=== PATIENT | female | born 1970 | race Caucasian/White ===

== ENCOUNTER → 2020-03-23 08:13 | Outpatient (BNVA) | payer OTHER, SELFPAY | PROVIDERS: PCP Internal Medicine; Referring Provider Internal Medicine; Visit Provider Internal Medicine | DX: Z76.89 Persons encountering health services in other specified circumstances (principal) ==

== ENCOUNTER → 2020-05-18 09:56 | Outpatient (BNVA) | payer OTHER, SELFPAY | PROVIDERS: PCP Internal Medicine; Visit Provider Internal Medicine | DX: E10.65 Type 1 diabetes mellitus with hyperglycemia (principal); E78.5 Hyperlipidemia, unspecified; I10 Essential (primary) hypertension; E04.2 Nontoxic multinodular goiter | CPT/HCPCS: 82947; 99212 ==

== ENCOUNTER 2020-05-18 11:07 | Outpatient (REF) | payer OTHER, SELFPAY ==
[2020-05-18 14:35] LABS: Alanine Aminotransferase 25 U/L (0-31); Alkaline Phosphatase 49 U/L (39-117); Anion Gap 11 (12-20); Aspartate Amino Transferase 21 U/L (5-31); Bilirubin Total 0.5 mg/dL (0.0-1.0); Blood Urea Nitrogen 17 mg/dL (9-16); Carbon Dioxide 29 mmol/L (22-29); Chloride 102 mmol/L (96-108); Cholesterol 136 mg/dL; Estimated Glomerular Filt Rate > 60; Glucose Random 131 mg/dL (60-115); HDL Cholesterol 58 mg/dL; LDL Cholesterol Calculated 68 mg/dl; Potassium 4.7 mmol/L (3.3-5.1); Sodium 137 mmol/L (135-145); Total Protein 6.7 g/dL (6.5-8.0); Triglycerides 52 mg/dL
[2020-05-18 14:47] LABS: Vitamin D 25-OH Total 33.2 ng/mL (>30)
[2020-05-18 14:56] LABS: Creatinine Urine 92.34 mg/dL; Microalbumin Urine < 5.0 mg/L
[2020-05-19 09:07] LABS: LDL Cholesterol Direct 57 mg/dL (<100)
== END 2020-05-18 11:08 | disposition home or self-care (01) ==
LOC: HO.10HDL 11:07
PROVIDERS: Visit Provider Internal Medicine
DX: E10.65 Type 1 diabetes mellitus with hyperglycemia (principal); E55.9 Vitamin D deficiency, unspecified
CPT/HCPCS: 36415; 80053; 80061; 82043; 82306; 83721

== ENCOUNTER 2020-06-11 16:16 | Outpatient (REF) | payer OTHER, SELFPAY ==
--- NOTE | ~2020-06-11 | US_ITS ---
EXAMINATION: US THYROID CLINICAL INFORMATION: Nontoxic multinodular goiter. COMPARISON: Ultrasound soft tissue head/neck thyroid dated 12/25/2018. TECHNIQUE: Linear transducer grayscale and color Doppler examination with attention to the region of the thyroid. FINDINGS: SIZE: Measurements of the thyroid lobes and nodules are given in sagittal, anteroposterior and transverse dimensions respectively. Right Thyroid Lobe: 4.9 x 1.1 x 1.5 cm, volume 4.2 mL. Previously 5.0 x 1.4 x 1.5 cm, volume 5.6 mL. Parenchyma: The gland echotexture is homogeneous. Thyroid vascularity is normal. Left Thyroid Lobe: 4.8 x 1.0 x 1.6 cm, volume 4.0 mL. Previously 5.0 x 1.4 x 1.7 cm, volume 6.2 mL. Parenchyma: The gland echotexture is homogeneous. Thyroid vascularity is normal. Isthmus: 0.3 cm in maximum AP dimension. Previously 0.3 cm. Estimated total number of nodules greater than or equal to 1 cm: 0. Deboner nodules are described as follows: 1. Location: Right mid medial. Size: 0.4 x 0.3 x 0.4 cm, volume 0.03 mL. Previously: 0.5 x 0.4 x 0.3 cm, volume 0.03 mL. Nodule characteristics: Composition: Solid (2). Echogenicity: Isoechoic (1). Shape: Not taller than wide (0). Margins: Ill-defined (0). Echogenic Foci: None (0). ACR TI-RADS total points: 3 ACR TI-RADS category: 3 Significant change in size (>/= 20% in 2 dimensions and minimal increase of 2 mm or 50% or greater increase in volume): None Change in features: None Change in ACR TI-RADS risk category: None 2. Location: Left mid medial. Size: 0.4 x 0.4 x 0.5 cm, volume 0.04 mL. Previously: 0.5 x 0.4 x 0.4 cm, volume 0.04 mL. Nodule characteristics: Composition: Solid (2). Echogenicity: Isoechoic (1). Shape: Not taller than wide (0). Margins: Ill-defined (0). Echogenic Foci: None (0). ACR TI-RADS total points: 3 ACR TI-RADS category: 3 Significant change in size (>/= 20% in 2 dimensions and minimal increase of 2 mm or 50% or greater increase in volume): None Change in features: None Change in ACR TI-RADS risk category: None NODES: No lymphadenopathy is seen in the tissue surrounding the thyroid gland. US/US thyroid IMPRESSION: Two subcentimeter nonsuspicious thyroid nodules in midpole of each gland. ACR TI-RADS RECOMMENDATION REFERENCE: Ultrasound-guided fine-needle aspiration, followup ultrasound, no further follow up. * TR1 (0 point) and TR 2 (2 points): No FNA or follow up * TR3 (3 points): FNA if more than or equal to 2.5 cm in maximum dimension, followup ultrasound in 1, 3 and 5 years if 1.5 to 2.4 cm in maximum dimension. * TR4 (4-6 points): FNA if more than or equal to 1.5 cm in maximum dimension, followup ultrasound in 1, 2, 3 and 5 years if 1 to 1.4 cm in maximum dimension. * TR5 (more than or equal to 7 points): FNA if more than or equal to 1 cm in maximum dimension, followup ultrasound every year for 5 years if 0.5 to 0.9 cm in maximum dimension. * TR3, TR4 or TR5 nodules that are below the size threshold for follow up receive no follow up.
== END 2020-06-11 16:17 | disposition home or self-care (01) ==
LOC: HO.US 16:16
PROVIDERS: Visit Provider Internal Medicine
DX: E04.2 Nontoxic multinodular goiter (principal)
CPT/HCPCS: 76536

== ENCOUNTER 2020-08-14 09:17 | Outpatient (REF) | payer OTHER, SELFPAY ==
[2020-08-14 10:39] LABS: Estimated Average Glucose 157 mg/dL; Hemoglobin A1c % 7.1 %
[2020-08-14 10:44] LABS: Alanine Aminotransferase 13 U/L (0-31); Albumin Level 4.1 g/dL (3.5-5.0); Alkaline Phosphatase 58 U/L (39-117); Anion Gap 13 (12-20); Aspartate Amino Transferase 12 U/L (5-31); Bilirubin Total 0.4 mg/dL (0.0-1.0); Blood Urea Nitrogen 13 mg/dL (9-16); Calcium 9.2 mg/dL (8.4-10.2); Carbon Dioxide 28 mmol/L (22-29); Chloride 105 mmol/L (96-108); Estimated Glomerular Filt Rate > 60; Glucose Random 91 mg/dL (60-115); Potassium 4.7 mmol/L (3.3-5.1); Sodium 141 mmol/L (135-145)
[2020-08-14 11:03] LABS: Creatinine Urine 145.27 mg/dL
== END 2020-08-14 09:18 | disposition home or self-care (01) ==
LOC: HO.WFDLDS 09:17
PROVIDERS: Visit Provider Internal Medicine
DX: E10.65 Type 1 diabetes mellitus with hyperglycemia (principal)
CPT/HCPCS: 36415; 80053; 83036

== ENCOUNTER → 2020-08-17 07:58 | Outpatient (BNVA) | payer OTHER, SELFPAY | PROVIDERS: PCP Internal Medicine; Visit Provider Internal Medicine ==

== ENCOUNTER 2021-08-03 10:30 | Outpatient (REF) | payer OTHER, SELFPAY ==
[2021-08-03 13:48] LABS: Estimated Average Glucose 157 mg/dL; Hemoglobin A1c % 7.1 %
[2021-08-03 14:14] LABS: Alanine Aminotransferase 12 U/L (0-31); Albumin Level 3.9 g/dL (3.5-5.0); Alkaline Phosphatase 59 U/L (39-117); Anion Gap 11 (12-20); Aspartate Amino Transferase 13 U/L (5-31); Bilirubin Total 0.6 mg/dL (0.0-1.0); Blood Urea Nitrogen 12 mg/dL (9-16); Calcium 8.8 mg/dL (8.4-10.2); Carbon Dioxide 28 mmol/L (22-29); Chloride 107 mmol/L (96-108); Estimated Glomerular Filt Rate > 60; Glucose Random 128 mg/dL (60-115); Potassium 4.5 mmol/L (3.3-5.1); Sodium 141 mmol/L (135-145); Total Protein 6.6 g/dL (6.5-8.0)
[2021-08-03 14:24] LABS: Free T4 (Free Thyroxine) 0.93 ng/dL (0.71-1.85); Thyroid Stimulating Hormone 0.94 uIU/mL (0.32-4.0)
== END 2021-08-03 10:31 | disposition home or self-care (01) ==
LOC: HO.WFDLDS 10:30
PROVIDERS: Visit Provider Internal Medicine
DX: E10.65 Type 1 diabetes mellitus with hyperglycemia (principal); E04.2 Nontoxic multinodular goiter
CPT/HCPCS: 36415; 80053; 83036; 84439; 84443

== ENCOUNTER → 2021-08-05 08:34 | Outpatient (BNVA) | payer OTHER, SELFPAY | PROVIDERS: PCP Internal Medicine; Visit Provider Internal Medicine | DX: Z13.89 Encounter for screening for other disorder (principal) ==

== ENCOUNTER → 2021-08-24 10:54 | Outpatient (BNVA) | payer OTHER, SELFPAY | PROVIDERS: PCP Internal Medicine; Visit Provider Registered Nurse Diabetes Educator | DX: E10.65 Type 1 diabetes mellitus with hyperglycemia (principal); Z79.4 Long term (current) use of insulin; Z46.81 Encounter for fitting and adjustment of insulin pump | CPT/HCPCS: 99211 ==

== ENCOUNTER → 2021-09-28 08:00 | Outpatient (BNVA) | payer OTHER, SELFPAY | PROVIDERS: PCP Internal Medicine; Visit Provider Registered Nurse Diabetes Educator | DX: Z46.81 Encounter for fitting and adjustment of insulin pump (principal); E10.65 Type 1 diabetes mellitus with hyperglycemia | CPT/HCPCS: 99211 ==

== ENCOUNTER 2021-11-02 11:00 | Outpatient (REF) | payer OTHER, SELFPAY ==
[2021-11-02 15:44] LABS: Estimated Average Glucose 151 mg/dL; Hemoglobin A1C 172.8282 umol/L; Hemoglobin A1c % 6.9 %
[2021-11-02 15:58] LABS: Creatinine Urine 89.85 mg/dL; Microalbumin Urine < 5.0 mg/L
[2021-11-02 16:03] LABS: Alanine Aminotransferase 12 U/L (0-31); Albumin Level 3.9 g/dL (3.5-5.0); Alkaline Phosphatase 54 U/L (39-117); Anion Gap 11 (12-20); Aspartate Amino Transferase 12 U/L (5-31); Bilirubin Total 0.6 mg/dL (0.0-1.0); Blood Urea Nitrogen 14 mg/dL (9-16); Calcium 8.8 mg/dL (8.4-10.2); Carbon Dioxide 25 mmol/L (22-29); Chloride 108 mmol/L (96-108); Cholesterol 124 mg/dL; Estimated Glomerular Filt Rate > 60; Glucose Random 87 mg/dL (60-115); HDL Cholesterol 52 mg/dL; LDL Cholesterol Calculated 64 mg/dl; Potassium 4.5 mmol/L (3.3-5.1); Sodium 139 mmol/L (135-145); Total Protein 6.4 g/dL (6.5-8.0); Triglycerides 44 mg/dL
[2021-11-02 16:12] LABS: Thyroid Stimulating Hormone 1.22 uIU/mL (0.32-4.0); Vitamin D 25-OH Total 29.4 ng/mL (>30)
[2021-11-04 00:11] LABS: LDL Cholesterol Direct 59 mg/dL (<100)
== END 2021-11-02 11:01 | disposition home or self-care (01) ==
LOC: HO.WFDLDS 11:00
PROVIDERS: Visit Provider Internal Medicine
DX: E10.65 Type 1 diabetes mellitus with hyperglycemia (principal); E04.2 Nontoxic multinodular goiter; E55.9 Vitamin D deficiency, unspecified
CPT/HCPCS: 36415; 80053; 80061; 82043; 82306; 83036; 83721; 84439; 84443

== ENCOUNTER → 2021-11-04 14:49 | Outpatient (BNVA) | payer OTHER, SELFPAY | PROVIDERS: PCP Internal Medicine; Visit Provider Internal Medicine | DX: E10.65 Type 1 diabetes mellitus with hyperglycemia (principal); E78.5 Hyperlipidemia, unspecified; I10 Essential (primary) hypertension; E04.2 Nontoxic multinodular goiter | CPT/HCPCS: 82947; 99212 ==

== ENCOUNTER → 2021-11-30 09:57 | Outpatient (BNVA) | payer OTHER, SELFPAY | PROVIDERS: PCP Internal Medicine; Visit Provider Registered Nurse Diabetes Educator | DX: E10.65 Type 1 diabetes mellitus with hyperglycemia (principal); Z46.81 Encounter for fitting and adjustment of insulin pump; Z79.4 Long term (current) use of insulin | CPT/HCPCS: 99211 ==

== ENCOUNTER 2021-12-01 09:02 | Outpatient (REF) | payer OTHER, SELFPAY ==
--- NOTE | ~2021-12-01 | US_ITS ---
EXAMINATION: US THYROID CLINICAL INFORMATION: Nontoxic multinodular goiter. COMPARISON: Ultrasound soft tissue head/neck thyroid dated 06/11/2020 and 12/25/2018. TECHNIQUE: Linear transducer grayscale and color Doppler examination with attention to the region of the thyroid. FINDINGS: SIZE: Measurements of the thyroid lobes and nodules are given in sagittal, anteroposterior and transverse dimensions respectively. Right Thyroid Lobe: 4.7 x 1.3 x 1.5 cm, volume 4.8 mL. Previously 4.9 x 1.1 x 1.5 cm, volume 4.2 mL. Parenchyma: The gland echotexture is homogeneous. Thyroid vascularity is normal. Left Thyroid Lobe: 5.0 x 1.5 x 1.7 cm, volume 6.7 mL. Previously 4.8 x 1.0 x 1.6 cm, volume 4.0 mL. Parenchyma: The gland echotexture is homogeneous. Thyroid vascularity is normal. Isthmus: 0.2 cm in maximum AP dimension. Previously 0.3 cm. Estimated total number of nodules greater than or equal to 1 cm: 0. 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 Location: Right mid medial. Size: 0.5 x 0.3 x 0.4 cm, volume 0.03 mL. Previously: 0.4 x 0.3 x 0.4 cm, volume 0.03 mL. Nodule characteristics: Composition: Solid (2). Echogenicity: Isoechoic (1). Shape: Not taller than wide (0). Margins: Smooth (0). Echogenic Foci: None (0). ACR TI-RADS total points: 3 Previous: 3 ACR TI-RADS category: 3 Previous: 3 Significant change in size (>/= 20% in 2 dimensions and minimal increase of 2 mm or 50% or greater increase in volume): None Change in features: None Change in ACR TI-RADS risk category: None NODES: No lymphadenopathy is seen in the tissue surrounding the thyroid gland. US/US thyroid IMPRESSION: Stable size and echotexture of thyroid gland compared to previous study. Solitary nodule right midpole stable as well. No new nodule seen. ACR TI-RADS RECOMMENDATION REFERENCE: Ultrasound-guided fine-needle aspiration, followup ultrasound, no further follow up. * TR1 (0 point) and TR 2 (2 points): No FNA or follow up * TR3 (3 points): FNA if more than or equal to 2.5 cm in maximum dimension, followup ultrasound in 1, 3 and 5 years if 1.5 to 2.4 cm in maximum dimension. * TR4 (4-6 points): FNA if more than or equal to 1.5 cm in maximum dimension, followup ultrasound in 1, 2, 3 and 5 years if 1 to 1.4 cm in maximum dimension. * TR5 (more than or equal to 7 points): FNA if more than or equal to 1 cm in maximum dimension, followup ultrasound every year for 5 years if 0.5 to 0.9 cm in maximum dimension. * TR3, TR4 or TR5 nodules that are below the size threshold for follow up receive no follow up.
== END 2021-12-01 09:03 | disposition home or self-care (01) ==
LOC: HO.US 09:02
PROVIDERS: Visit Provider Internal Medicine
DX: E04.2 Nontoxic multinodular goiter (principal)
CPT/HCPCS: 76536

== ENCOUNTER → 2021-12-31 09:54 | Outpatient (BNVA) | payer OTHER, SELFPAY | PROVIDERS: PCP Internal Medicine; Visit Provider Registered Nurse Diabetes Educator | DX: E10.65 Type 1 diabetes mellitus with hyperglycemia (principal); Z96.41 Presence of insulin pump (external) (internal) | CPT/HCPCS: 99211 ==

== ENCOUNTER 2022-02-25 09:22 | Outpatient (REF) | payer OTHER, SELFPAY ==
[2022-02-25 11:23] LABS: Estimated Average Glucose 126 mg/dL
[2022-02-25 11:39] LABS: Alanine Aminotransferase 8 U/L (0-31); Albumin Level 3.9 g/dL (3.5-5.0); Alkaline Phosphatase 55 U/L (39-117); Anion Gap 12 (12-20); Aspartate Amino Transferase 11 U/L (5-31); Bilirubin Total 0.5 mg/dL (0.0-1.0); Blood Urea Nitrogen 15 mg/dL (9-16); Carbon Dioxide 28 mmol/L (22-29); Chloride 104 mmol/L (96-108); Estimated Glomerular Filt Rate > 60; Free T4 (Free Thyroxine) 0.88 ng/dL (0.71-1.85); Glucose Random 114 mg/dL (60-115); Potassium 4.5 mmol/L (3.3-5.1); Sodium 139 mmol/L (135-145); Thyroid Stimulating Hormone 1.25 uIU/mL (0.32-4.0); Total Protein 6.4 g/dL (6.5-8.0); Vitamin D 25-OH Total 30.2 ng/mL (>30)
== END 2022-02-25 09:23 | disposition home or self-care (01) ==
LOC: HO.10HDL 09:22
PROVIDERS: Visit Provider Internal Medicine
DX: E10.65 Type 1 diabetes mellitus with hyperglycemia (principal); E04.2 Nontoxic multinodular goiter; E55.9 Vitamin D deficiency, unspecified
CPT/HCPCS: 36415; 80053; 82306; 83036; 84439; 84443; 99211

== ENCOUNTER → 2022-05-09 09:34 | Outpatient (BNVA) | payer OTHER, SELFPAY | PROVIDERS: PCP Internal Medicine; Visit Provider Internal Medicine | DX: E10.65 Type 1 diabetes mellitus with hyperglycemia (principal); E78.5 Hyperlipidemia, unspecified; E04.2 Nontoxic multinodular goiter; I10 Essential (primary) hypertension | CPT/HCPCS: 82947; 99212 ==

== ENCOUNTER 2022-08-08 10:22 | Outpatient (REF) | payer OTHER, SELFPAY ==
[2022-08-08 14:33] LABS: Alanine Aminotransferase 12 U/L (0-31); Albumin Level 3.9 g/dL (3.5-5.0); Alkaline Phosphatase 68 U/L (39-117); Anion Gap 13 (12-20); Aspartate Amino Transferase 12 U/L (5-31); Bilirubin Total 0.4 mg/dL (0.0-1.0); Blood Urea Nitrogen 17 mg/dL (9-16); Calcium 9.2 mg/dL (8.4-10.2); Carbon Dioxide 27 mmol/L (22-29); Chloride 106 mmol/L (96-108); Estimated Glomerular Filt Rate > 60; Glucose Random 142 mg/dL (60-115); Potassium 4.6 mmol/L (3.3-5.1); Sodium 141 mmol/L (135-145); Total Protein 6.6 g/dL (6.5-8.0)
[2022-08-08 14:38] LABS: Estimated Average Glucose 143 mg/dL; Hemoglobin A1c % 6.6 %
[2022-08-08 14:48] LABS: Free T4 (Free Thyroxine) 0.95 ng/dL (0.71-1.85); Thyroid Stimulating Hormone 1.07 uIU/mL (0.32-4.0); Vitamin D 25-OH Total 32.9 ng/mL (>30)
== END 2022-08-08 10:23 | disposition home or self-care (01) ==
LOC: HO.WFDLDS 10:22
PROVIDERS: Visit Provider Internal Medicine
DX: E55.9 Vitamin D deficiency, unspecified (principal); E04.2 Nontoxic multinodular goiter; E10.65 Type 1 diabetes mellitus with hyperglycemia
CPT/HCPCS: 36415; 80053; 82306; 83036; 84439; 84443

== ENCOUNTER → 2022-08-10 09:02 | Outpatient (BNVA) | payer OTHER, SELFPAY | PROVIDERS: PCP Internal Medicine; Visit Provider Internal Medicine | DX: E10.65 Type 1 diabetes mellitus with hyperglycemia (principal); E78.5 Hyperlipidemia, unspecified; E04.2 Nontoxic multinodular goiter; I10 Essential (primary) hypertension | CPT/HCPCS: 82947; 99212 ==

== ENCOUNTER → 2022-09-26 09:58 | Outpatient (BNVA) | payer OTHER, SELFPAY | PROVIDERS: PCP Internal Medicine; Visit Provider Registered Nurse Diabetes Educator | DX: Z46.81 Encounter for fitting and adjustment of insulin pump (principal); E10.65 Type 1 diabetes mellitus with hyperglycemia | CPT/HCPCS: 99211 ==

== ENCOUNTER 2022-12-08 13:23 | Outpatient (REF) | payer OTHER, SELFPAY ==
--- NOTE | ~2022-12-08 | US_ITS ---
EXAMINATION: US THYROID CLINICAL INFORMATION: Nontoxic multinodular goiter. COMPARISON: Ultrasound soft tissue head/neck thyroid dated 12/01/2021 and 06/11/2020. TECHNIQUE: Linear transducer grayscale and color Doppler examination with attention to the region of the thyroid. FINDINGS: SIZE: Measurements of the thyroid lobes and nodules are given in sagittal, anteroposterior and transverse dimensions respectively. Right Thyroid Lobe: 4.6 x 1.3 x 1.4 cm, volume 4.2 mL. Previously 4.7 x 1.3 x 1.5 cm, volume 4.8 mL. Parenchyma: The gland echotexture is homogeneous. Thyroid vascularity is normal. Left Thyroid Lobe: 4.2 x 1.2 x 1.5 cm, volume 4.0 mL. Previously 5.0 x 1.5 x 1.7 cm, volume 6.7 mL. Parenchyma: The gland echotexture is homogeneous. Thyroid vascularity is normal. Isthmus: 0.2 cm in maximum AP dimension. Previously 0.2 cm. Estimated total number of nodules greater than or equal to 1 cm: 0. 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 Location: Right mid. Size: 0.5 x 0.4 x 0.5 cm, volume 0.05 mL. Previously: 0.5 x 0.3 x 0.4 cm, volume 0.03 mL. Nodule characteristics: Composition: Solid (2). Echogenicity: Hypoechoic (2). Shape: Not taller than wide (0). Margins: Smooth (0). Echogenic Foci: None (0). ACR TI-RADS total points: 4 Previous: 3 ACR TI-RADS category: 4 Previous: 3 Significant change in size (>/= 20% in 2 dimensions and minimal increase of 2 mm or 50% or greater increase in volume): Yes Change in features: No Change in ACR TI-RADS risk category: No NODES: No lymphadenopathy is seen in the tissue surrounding the thyroid gland. US/US thyroid IMPRESSION: A small right thyroid lobe nodule is seen, as detailed. No specific follow-up is recommended. ACR TI-RADS RECOMMENDATION REFERENCE: Ultrasound-guided fine-needle aspiration, follow up ultrasound, no further followup. * TR1 (0 point) and TR2 (2 points): No FNA or followup * TR3 (3 points): FNA if more than or equal to 2.5 cm in maximum dimension, follow up ultrasound in 1, 3 and 5 years if 1.5 to 2.4 cm in maximum dimension. * TR4 (4-6 points): FNA if more than or equal to 1.5 cm in maximum dimension, follow up ultrasound in 1, 2, 3 and 5 years if 1 to 1.4 cm in maximum dimension. * TR5 (more than or equal to 7 points): FNA if more than or equal to 1 cm in maximum dimension, follow up ultrasound every year for 5 years if 0.5 to 0.9 cm in maximum dimension. * TR3, TR4 or TR5 nodules that are below the size threshold for follow up receive no followup.
[2022-12-08 14:39] LABS: Estimated Average Glucose 140 mg/dL; Hemoglobin A1c % 6.5 % (<6.0)
[2022-12-08 14:59] LABS: Alanine Aminotransferase 9 U/L (0-31); Alkaline Phosphatase 67 U/L (39-117); Anion Gap 10 (12-20); Aspartate Amino Transferase 12 U/L (5-31); Bilirubin Total 0.4 mg/dL (0.0-1.0); Blood Urea Nitrogen 15 mg/dL (9-16); Calcium 9.2 mg/dL (8.4-10.2); Carbon Dioxide 25 mmol/L (22-29); Chloride 107 mmol/L (96-108); Cholesterol 146 mg/dL (<200); Estimated Glomerular Filt Rate > 60; Glucose Random 147 mg/dL (60-115); HDL Cholesterol 47 mg/dL (>40); LDL Cholesterol Calculated 81 mg/dL (<100); Potassium 4.1 mmol/L (3.3-5.1); Sodium 138 mmol/L (135-145); Total Protein 6.9 g/dL (6.5-8.0); Triglycerides 93 mg/dL (<150)
[2022-12-08 15:09] LABS: Free T4 (Free Thyroxine) 0.89 ng/dL (0.71-1.85); Vitamin D 25-OH Total 29.3 ng/mL (>30)
[2022-12-08 15:55] LABS: Microalbum/Creatinine Ratio Ur 4.1 ug/mg cr (<30)
[2022-12-10 01:58] LABS: LDL Cholesterol Direct 86 mg/dL (<100)
== END 2022-12-08 13:24 | disposition home or self-care (01) ==
LOC: HO.US 13:23
PROVIDERS: PCP Internal Medicine; Visit Provider Internal Medicine
DX: E04.2 Nontoxic multinodular goiter (principal); E10.65 Type 1 diabetes mellitus with hyperglycemia; E55.9 Vitamin D deficiency, unspecified
CPT/HCPCS: 36415; 76536; 80053; 80061; 82043; 82306; 82570; 83036; 83721; 84439; 84443

== ENCOUNTER 2022-12-13 09:49 | Outpatient (AMB) | payer OTHER, SELFPAY ==
--- NOTE | 2022-12-13 10:21 | A.OFFVIS_ITS ---
Intake Intake Visit Reasons: DM/with pump/confirm 12/08 Allergies No Known Allergies Allergy (Verified 08/10/22 09:11) HPI Comprehensive Diabetes Asmnt Most Recent Diabetes Results: Microalb/Creat Ratio 4.1 ug/mg cr (<30) 12/08/22 Cholesterol 146 mg/dL (<200) 12/08/22 HDL Cholesterol 47 mg/dL (>40) 12/08/22 Triglycerides 93 mg/dL (<150) 12/08/22 Creatinine 0.86 mg/dL (0.5-1.4) 12/08/22 Blood Urea Nitrogen 15 mg/dL (9-16) 12/08/22 Sodium 138 mmol/L (135-145) 12/08/22 Potassium 4.1 mmol/L (3.3-5.1) 12/08/22 Chloride 107 mmol/L (96-108) 12/08/22 Carbon Dioxide 25 mmol/L (22-29) 12/08/22 Calcium 9.2 mg/dL (8.4-10.2) 12/08/22 AST 12 U/L (5-31) 12/08/22 ALT 9 U/L (0-31) 12/08/22 Total Protein 6.9 g/dL (6.5-8.0) 12/08/22 Albumin 4.0 g/dL (3.5-5.0) 12/08/22 [facility] Medical History HLD (hyperlipidemia) HTN (hypertension) Multinodular thyroid T1DM (type 1 diabetes mellitus) Vitamin D deficiency Surgical History History of ear surgery Hx of colonoscopy Hx of prior ablation treatment Family History Father Diabetes Mother Colonic polyp Social History Household Members: Family and Children Patient Tobacco Use Status: Former Tobacco user Quit Date: quit 20 years ago Cigarette Packs Per Day: 1 Years Smoked: 10 Assessment & Plan Assessment & Plan (1) T1DM (type 1 diabetes mellitus): Code(s): E10.9 - Type 1 diabetes mellitus without complications Qualifiers: Diabetes mellitus complication status: with hyperglycemia Qualified Code(s): E10.65 - Type 1 diabetes mellitus with hyperglycemia Plan: Patient presents for pump training for? T slim with control? IQ and Dexcom G6 ?patient's last A1c? 6.5 on 12/08/2022 ?following topics were reviewed today: -? activity setting - insulin on board Sensor setting (if applicable) ??? High Alert: off mg/dl ??? Low Alert: 70 mg/dl ?? average glucose for the past 2 weeks 157 mg/dL ?patient above target 28% ?at target? 74% ?below target 0% Patient reports she accurate and consistent on carbohydrate counting Patient is receiving small micro boluses post meal, will increase insulin to carb ratio from 10:00am- 10 pm Patient given the opportunity to ask questions about pump function Patient understands the basic concepts of pump therapy, how to give insulin for meals and snacks, how to troubleshoot for hyper and hypoglycemia. Setting verified by [facility] Basal rate(s) (units/hour) : 12 AM? to 2 AM? 1.5 units / hr 5 AM to 8 AM? 1.4 units / hr 8 AM? to 12 PM ? 1.5 units / hr 12 PM? to 10 PM ? 1.8 units / hr 10 PM? to 12 AM? 1.6 units / hr Bolus setting Insulin Carbohydrate Ratio (s) 12 AM to 10 AM 1:6 New 10 AM to 10 PM 1:5.5 10 PM to 12 AM 1:6 Correction Factor / Sensitivity Factor 12 AM? to 12 AM? 1:50 Active Insulin Time:? 5 hours Target(s): 12 AM? to 12 AM? 110 mg/dL Coding Level of Care Code Est Pt Level 1 (94835) Diagnoses T1DM (type 1 diabetes mellitus) E10.65 Diabetes mellitus complication status: with hyperglycemia
== END 2022-12-13 10:24 | disposition home or self-care (01) ==
PROVIDERS: PCP Internal Medicine; Visit Provider Registered Nurse Diabetes Educator
DX: E10.65 Type 1 diabetes mellitus with hyperglycemia (principal)

== ENCOUNTER → 2022-12-13 09:49 | Outpatient (BNVA) | payer OTHER, SELFPAY | PROVIDERS: PCP Internal Medicine; Visit Provider Registered Nurse Diabetes Educator | DX: E10.65 Type 1 diabetes mellitus with hyperglycemia (principal); Z96.41 Presence of insulin pump (external) (internal) | CPT/HCPCS: 99211 ==

== ENCOUNTER 2023-03-27 10:16 | Outpatient (AMB) | payer OTHER, SELFPAY ==
[2023-03-27 10:17] VITALS: BP 116/68; PULSE 80; BMI 34.2
--- NOTE | 2023-03-27 10:17 | A.OFFVIS_ITS ---
Intake Vital Signs 03/27/23 10:17 Height 5 ft 5 in Weight 205 lb 7.533 oz BMI 34.2 BP 116/68 Blood Pressure Location Lt brachial Position Sitting Pulse 80 Pulse Source Pulse Oximeter Intake Visit Reasons: F/U [id number] Intake Note: Patient present today to follow up on Type 1 Diabetes Mellitus. Patient receives DME supplies through: [facility] Diabetic Eye exam: 01/2023 Last Podiatry Visit: None Random Glucose: 143mg/dl HgA1C: 6.9% Hooker Operator Required: No Accompanied by: Self / Same As Patient Allergies No Known Allergies Allergy (Verified 03/27/23 10:25) Medication List - Last Reconciled 03/27/23 by Deng Nath MD atorvastatin 40 mg PO BEDTIME blood sugar diagnostic (FreeStyle Lite Strips) 4x daily blood-glucose meter (FreeStyle [place] Lite kit) As directed cholecalciferol (vitamin D3) 25 mcg PO DAILY dicyclomine 10 mg PO TID gabapentin 300 mg PO BEDTIME insulin lispro (Humalog U-100 Insulin) Via insulin pump 80-90 units subcut use as directed; 30 days lancets (FreeStyle Lancets) 4x daily lisinopril 2.5 mg PO DAILY multivitamin (One-A-Day Essential tablet) 1 tab PO DAILY pantoprazole 40 mg PO DAILY sertraline 50 mg PO DAILY zinc acetate 50 mg PO DAILY HPI HPI Comments History of Present Illness Details 52 YO F with PMHx T1DM, multinodular thyroid and HLD who is seen in F/U for T1DM. She was previously followed by [facility]. . Patient last saw Dr. Caceres on 08/10/2022 1. T1DM: Initially diagnosed with T1DM at the age of 13 when she was diagnosed at her elementary school. Currently using Tandem insulin pump. Current settings: Basal rate(s) (units/hour) : 12 AM? to 2 AM? 1.5 units / hr 5 AM to 8 AM? 1.4 units / hr 8 AM? to 12 PM ? 1.5 units / hr 12 PM? to 10 PM ? 1.8 units / hr 10 PM? to 12 AM? 1.6 units / hr Bolus setting Insulin Carbohydrate Ratio (s) 12 AM to 10 AM 1:6 New 10 AM to 10 PM 1:5.5 10 PM to 12 AM 1:6 Correction Factor / Sensitivity Factor 12 AM? to 12 AM? 1:50 Active Insulin Time:? 5 hours Target(s): 12 AM? to 12 AM? 110 mg/dL Duration of action of 3 hours. Total daily insulin dose of 71units/day, with 63% basal and 37% bolus. She changes her site every 3-4days. Also uses Dexcom G6 CGM. 14 days of data downloaded and interpreted from 03/14/2023 through . This reveals an average sugar of 172, with range 69-302. She is at goal 61% of the time, above goal 39% of the time, and below goal 0% of the time. CGM masses active 94.7% of the time with G mi of 7.4% She is mostly at goal, with some high sugars postprandially. Shedoes not have hypoglycemia awareness and does correct according to the rule of 15's. No hypoglycemia Most recent A1C: . Family history of autoimmunity in her son with albinism. Has eyes checked yearly, last eye exam 2 mos a go , no history of Retinopathy. Denies neuropathy, does not see podiatry. Denies any ulcerations. Denies nephropathy. On lisinopril 2.5 mg PO daily. UAC WNL 11/02/2021. HLD, on Atorvastatin 40 mg PO daily. LDL 59 11/02/2021. No known CAD. Has had Diabetes Education. No prior episodes of DKA. Denies episodes of severe hypoglycemia. 2. Multinodular Thyroid: Has a multinodular thyroid. Does complain of hair loss, dry skin, fatigue, weight gain. Denies any history of head or neck irradiation. Denies family history of thyroid cancer. US Thyroid: 12/01/2021 Right Thyroid Lobe: 4.7 x 1.3 x 1.5 cm, volume 4.8 mL. Previously 4.9 x 1.1 x 1.5 cm, volume 4.2 mL. Parenchyma: The gland echotexture is homogeneous. Thyroid vascularity is normal. Left Thyroid Lobe: 5.0 x 1.5 x 1.7 cm, volume 6.7 mL. Previously 4.8 x 1.0 x 1.6 cm, volume 4.0 mL. Parenchyma: The gland echotexture is homogeneous. Thyroid vascularity is normal. Isthmus: 0.2 cm in maximum AP dimension. Previously 0.3 cm. Estimated total number of nodules greater than or equal to 1 cm: 0. 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 Location: Right mid medial. ?? ? Size: 0.5 x 0.3 x 0.4 cm, volume 0.03 mL. ?? ? Previously: 0.4 x 0.3 x 0.4 cm, volume 0.03 mL. ?? ? Nodule characteristics: ?? ? Composition: Solid (2). ?? ? Echogenicity: Isoechoic (1). ?? ? Shape: Not taller than wide (0). ?? ? Margins: Smooth (0). ?? ? Echogenic Foci: None (0).? ACR TI-RADS total points: 3 Previous: 3 ?? ? ACR TI-RADS category: 3 Previous: 3 ? Significant change in size (>/= 20% in 2 dimensions and minimal increase of 2 mm or 50% or greater increase in volume): None ?? ? Change in features: None ?? ? Change in ACR TI-RADS risk category: None NODES: No lymphadenopathy is seen in the tissue surrounding the thyroid gland. Labs: Laboratory Tests 08/08/22 08/08/22 10:30 10:30 Sodium 141 Potassium 4.6 Creatinine 0.72 Estimated GFR > 60 Hemoglobin A1c % 6.6 25-OH Vitamin D To dick 32.9 TSH 1.07 Free T4 0.95 [facility] Medical History HLD (hyperlipidemia) HTN (hypertension) Multinodular thyroid T1DM (type 1 diabetes mellitus) Vitamin D deficiency Surgical History History of ear surgery Hx of colonoscopy Hx of prior ablation treatment Family History Father Diabetes Mother Colonic polyp Social History Household Members: Family and Children Patient Tobacco Use Status: Former Tobacco user Quit Date: quit 20 years ago Cigarette Packs Per Day: 1 Years Smoked: 10 Physical Exam Vital Signs: Last Vital Signs Pulse 80 03/27/23 10:17 BP 116/68 03/27/23 10:17 BMI result Body Mass Index 34.2 Absence of Cushingoid features. Absence of acromegalic features. Neck exam reveals nl size thyroid about 15 gms. No thyroid nodules palpable. No carotid bruits present. Lungs CTA. Heart S1 S2, Reg R/R. No M/R/ G. Skin exam reveals absence of vitiligo or acanthosis nigricans. Abdominal exam reveals Soft NT/ND with NA BS. No organomegaly present. Neck Other: . Extrem Other: Visual exam of foot performed. No ulcerations or open lesions. No onchomycosis, no callouses.Pulses 2 + distally Sensation intact to monofilament exam. Vibratory sensation sensed is intact with 128 Hz tuning fork Assessment & Plan Assessment & Plan (1) T1DM (type 1 diabetes mellitus): Code(s): E10.9 - Type 1 diabetes mellitus without complications Qualifiers: Diabetes mellitus complication status: with hyperglycemia Qualified Code(s): E10.65 - Type 1 diabetes mellitus with hyperglycemia Plan: This is a 52-year-old white female with history of type 1 diabetes being managed with a tandem T-slim X 2 pump with excellent glycemic control but not optimal at goal with no known microvascular or macrovascular complicate Plan is to tighten the insulin: Carbohydrate at 10:00 to 22:00 to 1:5. Will also renew glucagon rescue baquimi . Also made appointment to library clerk talking books. Patient should also follow up with can capper Orders: Referrals Podiatry Referral E10.9 - Type 1 diabetes mellitus without complications Medications: New glucagon 3 mg/actuation (Baqsimi) 3 mg intranasal ONCE 2 ea 4RF Coding Level of Care Code Est Pt Level 4 (60323) Diagnoses Type 1 diabetes mellitus with hyperglycemia E10.65 Diabetes mellitus complication status: with hyperglycemia
[2023-03-27 10:31] LABS: Glucose, Whole Blood 143 mg/dL (60-115)
== END 2023-03-27 11:00 | disposition home or self-care (01) ==
PROVIDERS: PCP Internal Medicine; Visit Provider Internal Medicine Endocrinology, Diabetes & Metabolism
DX: E10.65 Type 1 diabetes mellitus with hyperglycemia (principal)
CPT/HCPCS: 99214

== ENCOUNTER → 2023-03-27 10:16 | Outpatient (BNVA) | payer OTHER, SELFPAY | PROVIDERS: PCP Internal Medicine; Visit Provider Internal Medicine Endocrinology, Diabetes & Metabolism | DX: Z46.81 Encounter for fitting and adjustment of insulin pump (principal); E10.65 Type 1 diabetes mellitus with hyperglycemia; Z79.4 Long term (current) use of insulin | CPT/HCPCS: 82947; 99212 ==

== ENCOUNTER → 2023-03-30 07:43 | Outpatient (BNV) | payer OTHER, SELFPAY | PROVIDERS: PCP Internal Medicine; Visit Provider Internal Medicine Endocrinology, Diabetes & Metabolism | DX: E10.9 Type 1 diabetes mellitus without complications (principal) | CPT/HCPCS: 83036 ==

== ENCOUNTER 2023-09-07 09:21 | Outpatient (AMB) | payer OTHER, SELFPAY ==
--- NOTE | 2023-09-07 09:23 | MHC.OFFVIS ---
Vital Signs 09/07/23 09:26 Height 5 ft 5 in Weight 201 lb 4.513 oz BMI 33.5 BP 120/72 Blood Pressure Location Lt brachial Position Sitting Pulse 67 Pulse Source Pulse Oximeter Intake Visit Reasons: f/u Type 1 DM-confirmed Intake Note: Patient presents today to follow up on D1MT. 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 Required: No Accompanied by: Self / Same As Patient Allergies No Known Allergies Allergy (Verified 09/07/23 09:29) Medication List - Last Reconciled 09/07/23 by Deng Nath MD atorvastatin 40 mg PO BEDTIME blood sugar diagnostic (FreeStyle Lite Strips) 4x daily blood-glucose meter (FreeStyle [place] Lite kit) As directed cholecalciferol (vitamin D3) 25 mcg PO DAILY dicyclomine 10 mg PO TID gabapentin 300 mg PO BEDTIME glucagon 3 mg/actuation (Baqsimi) 3 mg intranasal ONCE insulin lispro (Humalog U-100 Insulin) Via insulin pump 80-90 units subcut use as directed; 30 days lancets (FreeStyle Lancets) 4x daily lisinopril 2.5 mg PO DAILY multivitamin (One-A-Day Essential tablet) 1 tab PO DAILY pantoprazole 40 mg PO DAILY sertraline 50 mg PO DAILY zinc acetate 50 mg PO DAILY HPI Comments Details: 52 YO F with PMHx T1DM, multinodular thyroid and HLD who is seen in F/U for T1DM. She was previously followed by [facility]. . Patient last saw Dr. Caceres on 08/10/2022 1. T1DM: Initially diagnosed with T1DM at the age of 13 when she was diagnosed at her elementary school. Currently using Tandem insulin pump. Current settings: Basal rate(s) (units/hour) : 12 AM? to 2 AM? 1.5 units / hr 5 AM to 8 AM? 1.4 units / hr 8 AM? to 12 PM ? 1.5 units / hr 12 PM? to 10 PM ? 1.8 units / hr 10 PM? to 12 AM? 1.6 units / hr Bolus setting Insulin Carbohydrate Ratio (s) 12 AM to 10 AM 1:6 10A to 12 P = 1:5 10 P-12 A =1:6 New 10 AM to 10 PM 1:5.5 10 PM to 12 AM 1:6 Correction Factor / Sensitivity Factor 12 AM? to 12 AM? 1:50 Active Insulin Time:? 5 hours Target(s): 12 AM? to 12 AM? 110 mg/dL Duration of action of 3 hours. Total daily insulin dose of 52.9 units/day, with 70% basal and 30% bolus. She changes her site every 3-4days. Also uses [employer] G6 CGM. 14 days of data downloaded and interpreted from 08/25/2023 through . This reveals an average sugar of 147, . She is at goal 78% of the time, above goal 22% of the time, and below goal 0% of the time. CGM masses active 91.9% of the time with G mi of 6.8% She is mostly at goal, with some high sugars postprandially. Shedoes not have hypoglycemia awareness and does correct according to the rule of 15's. No hypoglycemia Most recent A1C: . Family history of autoimmunity in her son with albinism. Has eyes checked yearly, last eye exam in 01/2023 , no history of Retinopathy. Denies neuropathy, does not see podiatry. Denies any ulcerations. Denies nephropathy. On lisinopril 2.5 mg PO daily. UAC WNL 11/02/2021. HLD, on Atorvastatin 40 mg PO daily. LDL 59 11/02/2021. No known CAD. Has had Diabetes Education. No prior episodes of DKA. Denies episodes of severe hypoglycemia. 2. Multinodular Thyroid: Has a multinodular thyroid. Does complain of hair loss, dry skin, fatigue, weight gain. Denies any history of head or neck irradiation. Denies family history of thyroid cancer. US Thyroid: 12/01/2021 Right Thyroid Lobe: 4.7 x 1.3 x 1.5 cm, volume 4.8 mL. Previously 4.9 x 1.1 x 1.5 cm, volume 4.2 mL. Parenchyma: The gland echotexture is homogeneous. Thyroid vascularity is normal. Left Thyroid Lobe: 5.0 x 1.5 x 1.7 cm, volume 6.7 mL. Previously 4.8 x 1.0 x 1.6 cm, volume 4.0 mL. Parenchyma: The gland echotexture is homogeneous. Thyroid vascularity is normal. Isthmus: 0.2 cm in maximum AP dimension. Previously 0.3 cm. Estimated total number of nodules greater than or equal to 1 cm: 0. Feed Crusher nodules are described as follows: 1.? Location: Right mid medial. ?? ? Size: 0.5 x 0.3 x 0.4 cm, volume 0.03 mL. ?? ? Previously: 0.4 x 0.3 x 0.4 cm, volume 0.03 mL. ?? ? Nodule characteristics: ?? ? Composition: Solid (2). ?? ? Echogenicity: Isoechoic (1). ?? ? Shape: Not taller than wide (0). ?? ? Margins: Smooth (0). ?? ? Echogenic Foci: None (0).? ACR TI-RADS total points: 3 Previous: 3 ?? ? ACR TI-RADS category: 3 Previous: 3 ? Significant change in size (>/= 20% in 2 dimensions and minimal increase of 2 mm or 50% or greater increase in volume): None ?? ? Change in features: None ?? ? Change in ACR TI-RADS risk category: None NODES: No lymphadenopathy is seen in the tissue surrounding the thyroid gland. Labs: Laboratory Tests 08/08/22 08/08/22 10:30 10:30 Sodium 141 Potassium 4.6 Creatinine 0.72 Estimated GFR > 60 Hemoglobin A1c % 6.6 25-OH Vitamin D Total 32.9 TSH 1.07 Free T4 0.95 She does have a painful infection around the nail bed after having her nail size by the emergency management consultant and taken antibiotic with resolution but now return of redness, pain PFSH Medical History HLD (hyperlipidemia) HTN (hypertension) Multinodular thyroid T1DM (type 1 diabetes mellitus) Vitamin D deficiency Surgical History Hx of prior ablation treatment Hx of colonoscopy History of ear surgery Family History Father Diabetes Mother Colonic polyp Social History Household Members: Family and Children Patient Tobacco Use Status: Former Tobacco user Quit Date: quit 20 years ago Cigarette Packs Per Day: 1 Years Smoked: 10 Physical Exam Vital Signs: Last Vital Signs Pulse 67 09/07/23 09:26 BP 120/72 09/07/23 09:26 BMI result Body Mass Index 33.5 Absence of Cushingoid features. Absence of acromegalic features. Neck exam reveals nl size thyroid about 15 gms. No thyroid nodules palpable. No carotid bruits present. Lungs CTA. Heart S1 S2, Reg R/R. No M/R/ G. Skin exam reveals absence of vitiligo or acanthosis nigricans. Abdominal exam reveals Soft NT/ND with NA BS. No organomegaly present. Neck Other: . Extrem Other: Visual exam of foot performed. No ulcerations or open lesions. There is some redness around the right 1st toe nailbed without any skin breakdown or obvious signs of infection No onchomycosis, no callouses.Pulses 2 + distally Sensation intact to monofilament exam. Vibratory sensation sensed is intact with 128 Hz tuning fork Results AMB Hemoglobin A1c AMB Hemoglobin A1c 6.5 % Last Edit by LIBAN Avendano on 09/07/23 09:43 Results Reviewed Results Reviewed: Laboratory Last Values Glucose (Clinic) 132 mg/dL (60-115) H 09/07/23 09:31 Assessment & Plan Assessment & Plan (1) T1DM (type 1 diabetes mellitus): Code(s): E10.9 - Type 1 diabetes mellitus without complications Category: Medical Qualifiers: Diabetes mellitus complication status: with hyperglycemia Qualified Code(s): E10.65 - Type 1 diabetes mellitus with hyperglycemia Plan: This is a 52-year-old white female with history of type 1 diabetes being managed with a tandem T-slim X 2 pump with excellent glycemic control with no known microvascular or macrovascular complicate Plan is to continue the current management. She is going to follow-up with the emergency management consultant regarding the right toe infection Orders: Orders AMB Hemoglobin A1c Today E10.65 - Type 1 diabetes mellitus with hyperglycemia, Z13.9 - Encounter for screening, unspecified Coding Level of Care Code Est Pt Level 4 (31299) Diagnoses Type 1 diabetes mellitus with hyperglycemia E10.65 Diabetes mellitus complication status: with hyperglycemia
[2023-09-07 09:26] VITALS: BP 120/72; PULSE 67; BMI 33.5
[2023-09-07 09:36] LABS: Glucose, Whole Blood 132 mg/dL (60-115)
== END 2023-09-07 09:53 | disposition home or self-care (01) ==
PROVIDERS: PCP Internal Medicine; Visit Provider Internal Medicine Endocrinology, Diabetes & Metabolism
DX: Z13.9 Encounter for screening, unspecified (principal); E10.65 Type 1 diabetes mellitus with hyperglycemia
CPT/HCPCS: 99214

== ENCOUNTER → 2023-09-07 09:21 | Outpatient (BNVA) | payer OTHER, SELFPAY | PROVIDERS: PCP Internal Medicine; Visit Provider Internal Medicine Endocrinology, Diabetes & Metabolism | DX: Z46.81 Encounter for fitting and adjustment of insulin pump (principal); E10.65 Type 1 diabetes mellitus with hyperglycemia; Z79.2 Long term (current) use of antibiotics | CPT/HCPCS: 82947; 83036; 99212 ==

== ENCOUNTER → 2023-12-07 10:37 | Outpatient (BNVA) | payer OTHER, SELFPAY | PROVIDERS: PCP Internal Medicine; Visit Provider Registered Nurse Diabetes Educator | DX: Z46.81 Encounter for fitting and adjustment of insulin pump (principal); E10.65 Type 1 diabetes mellitus with hyperglycemia; Z79.4 Long term (current) use of insulin | CPT/HCPCS: 82947; 83036; 99212 ==

== ENCOUNTER 2023-12-07 10:43 | Outpatient (AMB) | payer OTHER, SELFPAY ==
--- NOTE | 2023-12-07 10:50 | A.OFFVIS_ITS ---
Vital Signs 12/07/23 10:51 Height 5 ft 5 in Weight 200 lb 9.93 oz BMI 33.4 BP 122/78 Blood Pressure Location Rt brachial Position Sitting Pulse 90 Pulse Source Pulse Oximeter Intake Visit Reasons: T1DM Intake Note: Patient presents today to re-establish treatment for Type 1 Diabetes Mellitus: Last Diabetic eye exam was on: 01/2023 Last Podiatry exam was on: Does not see a Grocery Specialist Most recent HbA1c: 7.4%, 12/07/2023 Random Glucose- 74 mg/dL, Today Export Coordinator Required: No Accompanied by: Self / Same As Patient Allergies No Known Allergies Allergy (Verified 09/07/23 09:29) HPI Comments Details: 52 YO F with PMHx T1DM, multinodular thyroid and HLD who is seen in F/U for T1DM. She was previously followed by [facility]. . Patient last saw Dr. Nath in August 2023 her most recent A1c was 7.4% on 12/07/2023. This is up from 6.5% 08/28/2023. She reports that she has been eating more and not as consistent entering carbs. 1. T1DM: Initially diagnosed with T1DM at the age of 13 when she was diagnosed at her elementary school. Currently using Tandem insulin pump. Current settings: Basal rate(s) (units/hour) : 12 AM? to 2 AM? 1.5 units / hr 5 AM to 8 AM? 1.4 units / hr 8 AM? to 12 PM ? 1.5 units / hr 12 PM? to 10 PM ? 1.8 units / hr 10 PM? to 12 AM? 1.6 units / hr Bolus setting Insulin Carbohydrate Ratio (s) 12 AM to 10 AM 1:6 10A to 12 P = 1:5 10 P-12 A =1:6 New 10 AM to 10 PM 1:5.5 10 PM to 12 AM 1:6 Correction Factor / Sensitivity Factor 12 AM? to 12 AM? 1:50 Active Insulin Time:? 5 hours Target(s): 12 AM? to 2 AM? 110 mg/dL 2AM to 8AM 120 mg/dL new 08:00 to 00:00 110 Duration of action of 3 hours. She is mostly at goal, with some high sugars postprandially. She does not have hypoglycemia awareness and does correct according to the rule of 15's. Some hypoglycemia 4-6 a.m. Family history of autoimmunity in her son with albinism. Has eyes checked yearly, last eye exam in 01/2023, no history of Retinopathy. Denies neuropathy, she was recenty seen by podiatry and infection near nail bed has resolved. Denies any ulcerations. Denies nephropathy. On lisinopril 2.5 mg PO daily. UAC WNL 11/02/2021. HLD, on Atorvastatin 40 mg PO daily. LDL 59 11/02/2021. No known CAD. Has had Diabetes Education. No prior episodes of DKA. Denies episodes of severe hypoglycemia. 2. Multinodular Thyroid: Has a multinodular thyroid. Does complain of hair loss, dry skin, fatigue, weight gain. Denies any history of head or neck irradiation. Denies family history of thyroid cancer. US Thyroid: 12/01/2021 Right Thyroid Lobe: 4.7 x 1.3 x 1.5 cm, volume 4.8 mL. Previously 4.9 x 1.1 x 1.5 cm, volume 4.2 mL. Parenchyma: The gland echotexture is homogeneous. Thyroid vascularity is normal. Left Thyroid Lobe: 5.0 x 1.5 x 1.7 cm, volume 6.7 mL. Previously 4.8 x 1.0 x 1.6 cm, volume 4.0 mL. Parenchyma: The gland echotexture is homogeneous. Thyroid vascularity is normal. Isthmus: 0.2 cm in maximum AP dimension. Previously 0.3 cm. Estimated total number of nodules greater than or equal to 1 cm: 0. 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 Location: Right mid medial. ?? ? Size: 0.5 x 0.3 x 0.4 cm, volume 0.03 mL. ?? ? Previously: 0.4 x 0.3 x 0.4 cm, volume 0.03 mL. ?? ? Nodule characteristics: ?? ? Composition: Solid (2). ?? ? Echogenicity: Isoechoic (1). ?? ? Shape: Not taller than wide (0). ?? ? Margins: Smooth (0). ?? ? Echogenic Foci: None (0).? ACR TI-RADS total points: 3 Previous: 3 ?? ? ACR TI-RADS category: 3 Previous: 3 ? Significant change in size (>/= 20% in 2 dimensions and minimal increase of 2 mm or 50% or greater increase in volume): None ?? ? Change in features: None ?? ? Change in ACR TI-RADS risk category: None NODES: No lymphadenopathy is seen in the tissue surrounding the thyroid gland. [facility] Medical History Vitamin D deficiency Multinodular thyroid HLD (hyperlipidemia) HTN (hypertension) T1DM (type 1 diabetes mellitus) Surgical History Hx of prior ablation treatment Hx of colonoscopy History of ear surgery Family History Father Diabetes Mother Colonic polyp Social History Household Members: Family and Children Patient Tobacco Use Status: Former Tobacco user Cigarette Packs Per Day: 1 Years Smoked: 10 Physical Exam Vital Signs: Last Vital Signs Pulse 90 12/07/23 10:51 BP 122/78 12/07/23 10:51 BMI result Body Mass Index 33.4 Extrem Other: Visual exam of foot performed. No ulcerations or open lesions. No onchomycosis, no callouses. Sensation intact to monofilament exam. Vibratory sensation is normal with 128 Hz tuning fork. Results AMB Hemoglobin A1c AMB Hemoglobin A1c 7.4 % Last Edit by LIBAN Estrada on 12/07/23 11:09 Results Reviewed Results Reviewed: Laboratory Last Values Glucose (Clinic) 74 mg/dL (60-115) 12/07/23 10:58 Hgb A1c (Clinic) 7.4 % (4.0-6.0) H 12/07/23 11:06 Laboratory Tests 12/08/22 03/30/23 09/07/23 14:12 07:43 09:34 Hgb A1c (Clinic) 6.9 H 6.5 H Urine Creatinine 266.66 Urine Microalbumin 11.0 Microalb/Creat Ratio 4.1 12/07/23 11:06 Hgb A1c (Clinic) 7.4 H Urine Creatinine Urine Microalbumin Microalb/Creat Ratio Assessment & Plan Assessment & Plan (1) T1DM (type 1 diabetes mellitus): Code(s): E10.9 - Type 1 diabetes mellitus without complications Category: Medical Qualifiers: Diabetes mellitus complication status: with hyperglycemia Qualified Code(s): E10.65 - Type 1 diabetes mellitus with hyperglycemia Plan: Type 1 diabetic on a tandem insulin pump with a an A1c of 7.4%. This is up from her baseline and she reports she has been eating more this summer when she has not been working and does not always cover all carbs. Pump was adjusted slightly from 02:00 to 08:00 of a target of 120 at this time. She will have fasting labs done. Orders: Orders AMB Hemoglobin A1c Today E10.65 - Type 1 diabetes mellitus with hyperglycemia Medications: New acetone (urine) test (Ketone Urine Test strips) As directed prn over 250, illness, nausea, vomiting 25 ea 1RF insulin glargine (Lantus U-100 Insulin) take once daily prn for pump failure 40 units (0.4 mL) subcut DAILY 30 days PRN 10 mL 1RF pump failure Patient Instructions: The patient was counseled to achieve a target A1C of 7% (154 avg). Fasting blood sugars should be 90-130 in the morning and less than 180 two hours after meals. Reviewed the relationship between poor diabetic control and the development of complications The patient was counseled to always carry a source of sugar and on the rule of 15's: Take 3 glucose tablets and repeat again in 15 minutes if blood sugar is not in normal range. Continue to repeat every 15 minutes until blood sugar is normal. The patient was counseled to wear closed toe shoes, never walk barefooted and to inspect the feet daily. For any signs of infection or open wound patient should notify PCP or go to urgent care. Troubleshooting after starting new pod or inserting new insulin set: Occlusion, adhesive tape sensitivity, redness Check BG 2 hours after site change Safety information: Importance of a backup plan, for manual injections, proper prescriptions and emergency supplies ketone strips, and rules for testing for ketones Coding Level of Care Code Est Pt Level 4 (22159) Complex EM visit Add On G2211 Diagnoses Type 1 diabetes mellitus with hyperglycemia E10.65 Diabetes mellitus complication status: with hyperglycemia Time Spent (min) 30 Comment Reviewing labs/provider notes, glucose sensor/pump reports, face to face, chart doc
[2023-12-07 10:51] VITALS: BP 122/78; PULSE 90; BMI 33.4
[2023-12-07 11:04] LABS: Glucose, Whole Blood 74 mg/dL (60-115)
== END 2023-12-07 11:29 | disposition home or self-care (01) ==
PROVIDERS: PCP Internal Medicine; Visit Provider Nurse Practitioner Adult Health
DX: E10.65 Type 1 diabetes mellitus with hyperglycemia (principal)
CPT/HCPCS: 99214; G2211

== ENCOUNTER 2023-12-12 09:30 | Outpatient (AMB) | payer OTHER, SELFPAY ==
--- NOTE | 2023-12-12 09:58 | A.OFFVIS_ITS ---
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 Required: No Accompanied by: Self / Same As Patient Allergies No Known Allergies Allergy (Verified 09/07/23 09:29) HPI Comprehensive Diabetes Asmnt Most Recent Diabetes Results: Microalb/Creat Ratio 4.1 ug/mg cr (<30) 12/08/22 Cholesterol 146 mg/dL (<200) 12/08/22 HDL Cholesterol 47 mg/dL (>40) 12/08/22 Triglycerides 93 mg/dL (<150) 12/08/22 Creatinine 0.86 mg/dL (0.5-1.4) 12/08/22 Blood Urea Nitrogen 15 mg/dL (9-16) 12/08/22 Sodium 138 mmol/L (135-145) 12/08/22 Potassium 4.1 mmol/L (3.3-5.1) 12/08/22 Chloride 107 mmol/L (96-108) 12/08/22 Carbon Dioxide 25 mmol/L (22-29) 12/08/22 Calcium 9.2 mg/dL (8.4-10.2) 12/08/22 AST 12 U/L (5-31) 12/08/22 ALT 9 U/L (0-31) 12/08/22 Total Protein 6.9 g/dL (6.5-8.0) 12/08/22 Albumin 4.0 g/dL (3.5-5.0) 12/08/22 [facility] Medical History Vitamin D deficiency Multinodular thyroid HLD (hyperlipidemia) HTN (hypertension) T1DM (type 1 diabetes mellitus) Surgical History Hx of prior ablation treatment Hx of colonoscopy History of ear surgery Family History Father Diabetes Mother Colonic polyp Social History Household Members: Family and Children Patient Tobacco Use Status: Former Tobacco user Cigarette Packs Per Day: 1 Years Smoked: 10 Assessment & Plan Assessment & Plan (1) T1DM (type 1 diabetes mellitus): Code(s): E10.9 - Type 1 diabetes mellitus without complications Qualifiers: Diabetes mellitus complication status: with hyperglycemia Qualified Code(s): E10.65 - Type 1 diabetes mellitus with hyperglycemia Plan: Patient presents for pump training for? T slim with control? IQ and Dexcom G6 ?patient's last A1c? 7.4 on 12/07/2023 ?following topics were reviewed today: -? connectivity troubleshooting with Dexcom G7 - importance of changing insulin to delivery set every 72 hours Sensor setting (if applicable) ??? High Alert: off mg/dl ??? Low Alert: 70 mg/dl ?? average glucose for the past 2 weeks 149 mg/dL ?patient above target 23.4% ?at target? 76% ?below target 0.9% Patient is having some difficulty with connectivity with Dexcom G7 sensors and insulin pumps, patient has already downloaded and reconnected insulin pump with T connect elpidio. reminded patient to always wear pump on same side of body as sensor. In addition pump face should always be pointing away from body. Patient continued to have hypoglycemia overnight, See adjustments to basal rates below Patient understands the basic concepts of pump therapy, how to give insulin for meals and snacks, how to troubleshoot for hyper and hypoglycemia. Setting verified by [facility] Basal rate(s) (units/hour) : 12 AM? to 2 AM? 1.5 units / hr New 12 AM? to 2 AM? 1.3 units / hr 5 AM to 8 AM? 1.4 units / hr New 5 AM to 8 AM? 1.3 units / hr 8 AM? to 12 PM ? 1.5 units / hr 12 PM? to 10 PM ? 1.8 units / hr 10 PM? to 12 AM? 1.6 units / hr Bolus setting Insulin Carbohydrate Ratio (s) 12 AM to 10 AM 1:6 10 AM to 10 PM 1:5.5 10 PM to 12 AM 1:6 Correction Factor / Sensitivity Factor 12 AM? to 12 AM? 1:50 Active Insulin Time:? 5 hours Target(s): 12 AM? to 12 AM? 110 mg/dL Coding Level of Care Code Est Pt Level 1 (53045) Diagnoses Type 1 diabetes mellitus with hyperglycemia E10.65 Diabetes mellitus complication status: with hyperglycemia
== END 2023-12-12 10:20 | disposition home or self-care (01) ==
PROVIDERS: PCP Internal Medicine; Visit Provider Registered Nurse Diabetes Educator
DX: E10.65 Type 1 diabetes mellitus with hyperglycemia (principal)

== ENCOUNTER → 2023-12-12 09:30 | Outpatient (BNVA) | payer OTHER, SELFPAY | PROVIDERS: PCP Internal Medicine; Visit Provider Registered Nurse Diabetes Educator | DX: Z46.81 Encounter for fitting and adjustment of insulin pump (principal); E10.65 Type 1 diabetes mellitus with hyperglycemia; Z79.4 Long term (current) use of insulin | CPT/HCPCS: 99211 ==

== ENCOUNTER 2024-02-29 09:22 | Outpatient (AMB) | payer OTHER, SELFPAY ==
--- NOTE | 2024-02-29 09:24 | MHC.OFFVIS ---
Vital Signs 02/29/24 09:27 Height 5 ft 5 in Weight 203 lb 0.732 oz BMI 33.8 BP 106/70 Blood Pressure Location Lt brachial Position Sitting Pulse 85 Pulse Source Pulse Oximeter Intake Visit Reasons: T1DM Intake Note: Patient present today to follow up on Type 1 Diabetes Mellitus. Last Diabetic Eye exam: January 2024 Last Podiatry Visit: Does not see a Coupler Random Glucose: 108 mg/dl HgA1C: 7.7% 02/29/24 Snath Handle Assembler Required: No Accompanied by: Self / Same As Patient Allergies No Known Allergies Allergy (Verified 02/29/24 09:29) HPI Comments Details: 53 YO F with PMHx T1DM, multinodular thyroid and HLD who is seen in F/U for T1DM. She was previously followed by [facility] Endocr[facility]ology. . Patient last saw Dr. Caceres on 08/10/2022 1. T1DM: Initially diagnosed with T1DM at the age of 13 when she was diagnosed at her elementary school. Currently using Tandem insulin pump. Current settings: Basal rate(s) (units/hour) : 12 AM? to 2 AM? 1.3 units / hr 5 AM to 8 AM? 1.4 units / hr 8 AM? to 12 PM ? 1.5 units / hr 12 PM? to 10 PM ? 1.8 units / hr 10 PM? to 12 AM? 1.6 units / hr Bolus setting Insulin Carbohydrate Ratio (s) 12 AM to 10 AM 1:6 10A to 12 P = 1:5 10 P-12 A =1:5 10 PM to 12 AM 1:6 Correction Factor / Sensitivity Factor 12 AM? to 12 AM? 1:50 Active Insulin Time:? 5 hours Target(s): 12 AM? to 12 AM? 110 mg/dL Duration of action of 3 hours. Total daily insulin dose of 59.5 units/day, with 66% basal and 34% bolus. She changes her site every 3-4days. Also uses [employer] CGM. 14 days of data downloaded and interpreted from 02/16/24-02/20/24. This reveals an average sugar of 167, . She is at goal 64% of the time, above goal 36% of the time, and below goal 0% of the time. CGM masses active 92.1% of the time with G mi of 7.3% She is mostly at goal, with some high sugars postprandially. Breakfast Shedoes not have hypoglycemia awareness and does correct according to the rule of 15's. No hypoglycemia Most recent A1C: . Family history of autoimmunity in her son with albinism. Has eyes checked yearly, last eye exam in last mo , no history of Retinopathy. Denies neuropathy, does not see podiatry. Denies any ulcerations. Denies nephropathy. On lisinopril 2.5 mg PO daily. UAC WNL 11/02/2021. HLD, on Atorvastatin 40 mg PO daily. LDL 59 11/02/2021. No known CAD. Has had Diabetes Education. No prior episodes of DKA. Denies episodes of severe hypoglycemia. 2. Multinodular Thyroid: Has a multinodular thyroid. Does complain of hair loss, dry skin, fatigue, weight gain. Denies any history of head or neck irradiation. Denies family history of thyroid cancer. US Thyroid: 12/01/2021 Right Thyroid Lobe: 4.7 x 1.3 x 1.5 cm, volume 4.8 mL. Previously 4.9 x 1.1 x 1.5 cm, volume 4.2 mL. Parenchyma: The gland echotexture is homogeneous. Thyroid vascularity is normal. Left Thyroid Lobe: 5.0 x 1.5 x 1.7 cm, volume 6.7 mL. Previously 4.8 x 1.0 x 1.6 cm, volume 4.0 mL. Parenchyma: The gland echotexture is homogeneous. Thyroid vascularity is normal. Isthmus: 0.2 cm in maximum AP dimension. Previously 0.3 cm. Estimated total number of nodules greater than or equal to 1 cm: 0. Manager Bank nodules are described as follows: 1.? Location: Right mid medial. ?? ? Size: 0.5 x 0.3 x 0.4 cm, volume 0.03 mL. ?? ? Previously: 0.4 x 0.3 x 0.4 cm, volume 0.03 mL. ?? ? Nodule characteristics: ?? ? Composition: Solid (2). ?? ? Echogenicity: Isoechoic (1). ?? ? Shape: Not taller than wide (0). ?? ? Margins: Smooth (0). ?? ? Echogenic Foci: None (0).? ACR TI-RADS total points: 3 Previous: 3 ?? ? ACR TI-RADS category: 3 Previous: 3 ? Significant change in size (>/= 20% in 2 dimensions and minimal increase of 2 mm or 50% or greater increase in volume): None ?? ? Change in features: None ?? ? Change in ACR TI-RADS risk category: None NODES: No lymphadenopathy is seen in the tissue surrounding the thyroid gland. Labs: Laboratory Tests 08/08/22 08/08/22 10:30 10:30 Sodium 141 Potassium 4.6 Creatinine 0.72 Estimated GFR > 60 Hemoglobin A1c % 6.6 25-OH Vitamin D Total 32.9 TSH 1.07 Free T4 0.95 PFSH Medical History Vitamin D deficiency Multinodular thyroid HLD (hyperlipidemia) HTN (hypertension) T1DM (type 1 diabetes mellitus) Surgical History Hx of prior ablation treatment Hx of colonoscopy History of ear surgery Family History Father Diabetes Mother Colonic polyp Social History Household Members: Family and Children Patient Tobacco Use Status: Former Tobacco user Cigarette Packs Per Day: 1 Years Smoked: 10 Physical Exam Vital Signs: Last Vital Signs Pulse 85 02/29/24 09:27 BP 106/70 02/29/24 09:27 BMI result Body Mass Index 33.8 Absence of Cushingoid features. Absence of acromegalic features. Neck exam reveals nl size thyroid about 15 gms. No thyroid nodules palpable. No carotid bruits present. Lungs CTA. Heart S1 S2, Reg R/R. No M/R/ G. Skin exam reveals absence of vitiligo or acanthosis nigricans. Abdominal exam reveals Soft NT/ND with NA BS. No organomegaly present. Neck Other: . Extrem Other: Visual exam of foot performed. No ulcerations or open lesions. There is some redness around the right 1st toe nailbed without any skin breakdown or obvious signs of infection No onchomycosis, no callouses.Pulses 2 + distally Sensation intact to monofilament exam. Vibratory sensation sensed is intact with 128 Hz tuning fork Results AMB Hemoglobin A1c AMB Hemoglobin A1c 7.7 % Last Edit by LIBAN Alfredo on 02/29/24 09:47 Results Reviewed Results Reviewed: Laboratory Last Values Glucose (Clinic) 108 mg/dL (60-115) 02/29/24 09:33 Assessment & Plan Assessment & Plan (1) T1DM (type 1 diabetes mellitus): Code(s): E10.9 - Type 1 diabetes mellitus without complications Category: Medical Qualifiers: Diabetes mellitus complication status: with hyperglycemia Qualified Code(s): E10.65 - Type 1 diabetes mellitus with hyperglycemia Plan: This is a 52-year-old white female with history of type 1 diabetes being managed with a tandem T-slim X 2 pump with fair deteriorated glycemic control with no known microvascular or macrovascular complicate Plan is to have the patient be more diligent about bolusing prior to the meal particularly around breakfast. We also talked about potentially switching from a T slim pump to a iLet pump as patient has difficulty sometimes it during the carbohydrates prior to the meal. She will meet with the clinical nurse educator for follow-up to discuss this. We will also check lipid profile. Patient will follow up with Asya Khoury NP in 3 months Orders: Orders AMB Hemoglobin A1c Today E10.65 - Type 1 diabetes mellitus with hyperglycemia Lipid Panel Today E10.65 - Type 1 diabetes mellitus with hyperglycemia Coding Level of Care Code Est Pt Level 4 (35029) Diagnoses Type 1 diabetes mellitus with hyperglycemia E10.65 Diabetes mellitus complication status: with hyperglycemia
[2024-02-29 09:27] VITALS: BP 106/70; PULSE 85; BMI 33.8
[2024-02-29 09:37] LABS: Glucose, Whole Blood 108 mg/dL (60-115)
== END 2024-02-29 10:06 | disposition home or self-care (01) ==
PROVIDERS: PCP Internal Medicine; Visit Provider Internal Medicine Endocrinology, Diabetes & Metabolism
DX: E10.65 Type 1 diabetes mellitus with hyperglycemia (principal)
CPT/HCPCS: 99214

== ENCOUNTER → 2024-02-29 09:22 | Outpatient (BNVA) | payer OTHER, SELFPAY | PROVIDERS: PCP Internal Medicine; Visit Provider Internal Medicine Endocrinology, Diabetes & Metabolism | DX: Z46.81 Encounter for fitting and adjustment of insulin pump (principal); E10.65 Type 1 diabetes mellitus with hyperglycemia; Z79.4 Long term (current) use of insulin | CPT/HCPCS: 82947; 83036; 99212 ==

== ENCOUNTER 2024-03-21 12:19 | Outpatient (AMB) | payer OTHER, SELFPAY ==
--- NOTE | 2024-03-21 12:51 | A.OFFVIS_ITS ---
Intake Intake Visit Reasons: T1DM Parking Enforcement Specialist Required: No Accompanied by: Self / Same As Patient Allergies No Known Allergies Allergy (Verified 02/29/24 09:29) HPI Comprehensive Diabetes Asmnt Most Recent Diabetes Results: Hemoglobin A1c 6.1 % 10/14/19 Microalb/Creat Ratio 4.1 ug/mg cr (<30) 12/08/22 Cholesterol 146 mg/dL (<200) 12/08/22 HDL Cholesterol 47 mg/dL (>40) 12/08/22 Triglycerides 93 mg/dL (<150) 12/08/22 Creatinine 0.86 mg/dL (0.5-1.4) 12/08/22 Blood Urea Nitrogen 15 mg/dL (9-16) 12/08/22 Sodium 138 mmol/L (135-145) 12/08/22 Potassium 4.1 mmol/L (3.3-5.1) 12/08/22 Chloride 107 mmol/L (96-108) 12/08/22 Carbon Dioxide 25 mmol/L (22-29) 12/08/22 Calcium 9.2 mg/dL (8.4-10.2) 12/08/22 AST 12 U/L (5-31) 12/08/22 ALT 9 U/L (0-31) 12/08/22 Total Protein 6.9 g/dL (6.5-8.0) 12/08/22 Albumin 4.0 g/dL (3.5-5.0) 12/08/22 PFSH Medical History Vitamin D deficiency Multinodular thyroid HLD (hyperlipidemia) HTN (hypertension) T1DM (type 1 diabetes mellitus) Surgical History Hx of prior ablation treatment Hx of colonoscopy History of ear surgery Family History Father Diabetes Mother Colonic polyp Social History Household Members: Family and Children Patient Tobacco Use Status: Former Tobacco user Cigarette Packs Per Day: 1 Years Smoked: 10 Assessment & Plan Assessment & Plan (1) T1DM (type 1 diabetes mellitus): Code(s): E10.9 - Type 1 diabetes mellitus without complications Qualifiers: Diabetes mellitus complication status: with hyperglycemia Qualified Code(s): E10.65 - Type 1 diabetes mellitus with hyperglycemia Plan: Patient presents for pump training for? T slim with control? IQ and Dexcom G6 ?patient's last A1c? 7.4 on 12/07/2023 ?following topics were reviewed today: -? connectivity troubleshooting with Dexcom G7 - iLet vs T-Slim X2 Sensor setting (if applicable) ??? High Alert: off mg/dl ??? Low Alert: 70 mg/dl ?? average glucose for the past 2 weeks 163 mg/dL ?patient above target 36.9% ?at target? 63% ?below target 0.6% Patient has improved frequency of infusion set changes since last visit. She continued to have hypoglycemia overnight, See adjustments to basal rates below Patient is interested in the iLet, however her current pump is still under warranty. Will reach out to [employer] rep to see if there is any suggestions how to get pump approved Patient understands the basic concepts of pump therapy, how to give insulin for meals and snacks, how to troubleshoot for hyper and hypoglycemia. Setting verified by CDCES Basal rate(s) (units/hour) : 12 AM? to 2 AM? 1.3 units / hr New 12 AM? to 2 AM? 1.2 units / hr 5 AM to 8 AM? 1.3 units / hr New 5 AM to 8 AM? 1.2 units / hr 8 AM? to 12 PM ? 1.5 units / hr 12 PM? to 10 PM ? 1.8 units / hr 10 PM? to 12 AM? 1.6 units / hr New 10 PM? to 12 AM? 1.4 units / hr Bolus setting Insulin Carbohydrate Ratio (s) 12 AM to 10 AM 1:6 10 AM to 10 PM 1:5 10 PM to 12 AM 1:6 Correction Factor / Sensitivity Factor 12 AM? to 12 PM? 1:50 12 PM to 10 PM 1:45 10 PM to 12 AM 1:50 Active Insulin Time:? 5 hours Target(s): 12 AM? to 12 AM? 110 mg/dL Coding Level of Care Code Est Pt Level 1 (12413) Diagnoses Type 1 diabetes mellitus with hyperglycemia E10.65 Diabetes mellitus complication status: with hyperglycemia
== END 2024-03-21 13:00 | disposition home or self-care (01) ==
PROVIDERS: PCP Internal Medicine; Visit Provider Registered Nurse Diabetes Educator
DX: E10.65 Type 1 diabetes mellitus with hyperglycemia (principal)

== ENCOUNTER → 2024-03-21 12:19 | Outpatient (BNVA) | payer OTHER, SELFPAY | PROVIDERS: PCP Internal Medicine; Visit Provider Registered Nurse Diabetes Educator | DX: Z46.81 Encounter for fitting and adjustment of insulin pump (principal); E10.65 Type 1 diabetes mellitus with hyperglycemia; Z79.4 Long term (current) use of insulin | CPT/HCPCS: 99211 ==

== ENCOUNTER 2024-05-23 09:04 | Outpatient (AMB) | payer OTHER, SELFPAY ==
--- OUTSIDE RECORDS SUMMARY | 2024-05-23 09:33 | XMS_ITS | Encounter Summary ---
Author Organization [facility] Address [address] [place] [address] Care Team Providers Care Blood Bank Credit Clerk Name Role Phone Major Rosario MD Primary Care Provider Hyun nick Encounter Details Date Type Department Care Team Description 09/21/2023 Orders Only Medical Records [address] [place] [address] Fredrick Rodriguez DO [address] [facility] [address] [facility] [place] [address] Social History Tobacco Use Types Packs/Day Years Used Date Smoking Tobacco: Former Cigarettes Q uit: 09/10/2007 Smokeless Tobacco: Never Alcohol Use Standard Drinks/Week Comments No 0 (1 standard drink = 0.6 oz pur e alcohol) Sex Assigned at Date Recorded Not on file documented as of this encounter Progress Notes * Cynthia Lu - 10/02/2023 10:54 AM EDT [employer] message sent to pt by Hugh Corrigan 09/25/23. * Fredrick Rodriguez DO - 09/24/2023 7:05 PM EDT Please let the patient know that her esophagus biopsies showed evidence of acid inflammation without any precancer cells, allergic conditions or infections. These findings is what I expected and now are confirmed on biopsies. By no means disease bad news but he will require follow-up with GI. I recommend that she follows up with KAMALA Mesa in clinic as instructed. Since pantoprazole isnot really helping with her acid inflammation, I recommend that she switches to a more potent PPI such as Nexium/esomeprazole and she takes 40 mg daily until she sees KAMALA Mesa in clinic in thenear future. Thank you. documented in this encounter Plan of Treatment Not on file documented as of this encounter Procedures Procedure Name Priority Date/Time Associated Diagnosis Comments OUTSIDE PATHOLOGY Routine 09/18/2023 documented in this encounter Results * OUTSIDE PATHOLOGY (09/18/2023) Fredrick Rodriguez DO OUTSIDE LAB documented in this encounter Visit Diagnoses Not on filedocumented in this encounter Care Teams Blood Bank Credit Clerk Relationship Specialty Start Date End Date Major Rosario MD PCP - General Internal Medicine 09/05/19 documented as of this encounter
--- OUTSIDE RECORDS SUMMARY | 2024-05-23 09:33 | XMS_ITS | Encounter Summary ---
Author Organization [facility] Address [address] [place] [address] Care Team Providers Care Record Changer Tester Name Role Phone Major Rosario MD Primary Care Provider Hyun nick Encounter Details Date Type Department Care Team Description 10/02/2019 Refill Adult Medicine [address] [address] Major Rosario MD Social History Tobacco Use Types Packs/Day Years Used Date Smoking Tobacco: Former Cigarettes Q uit: 09/10/2007 Smokeless Tobacco: Never Alcohol Use Standard Drinks/Week Comments No 0 (1 standard drink = 0.6 oz pur e alcohol) Sex Assigned at Date Recorded Not on file documented as of this encounter Miscellaneous Notes * Telephone Encounter - Magda Powell M.A. - 10/07/2019 9:09 AM EDT Only seen by GI * Telephone Encounter - Omid Barriga - 10/07/2019 7:26 AM EDTFrom: Demetria Wagner Sent: 10/02/2019 10:03 AM EDT Subject: Medication Renewal Request Demetria Wagner would like a refill of the following medications: Other - Diclofenac and dicylomine Preferred pharmacy: [id number] - [place], [place] - [address] [facility] [address] [facility] documented in this encounter Plan of Treatment Not on file documented as of this encounter Visit Diagnoses Not on filedocumented in this encounter Care Teams Record Changer Tester Relationship Specialty Start Date End Date Major Rosario MD PCP - General Internal Medicine 09/05/19 documented as of this encounter
--- OUTSIDE RECORDS SUMMARY | 2024-05-23 09:33 | XMS_ITS | Encounter Summary ---
Author Organization [facility] Address [address] [place] [address] Care Team Providers Care Liquid Center Assembler Name Role Phone Major Rosario MD Primary Care Provider Unavailab le Reason for Visit * Reason Onset Date Comments Error 03/19/2021 Encounter Details Date Type Department Care Team Description 03/19/2021 Telephone Gastroenterology - [place] [address] [phone] Hugh Corrigan PA-C 175 [facility] [address] [place] [address] Error Social History Tobacco Use Types Packs/Day Years Used Date Smoking Tobacco: Former Cigarettes Q uit: 09/10/2007 Smokeless Tobacco: Never Alcohol Use Standard Drinks/Week Comments No 0 (1 standard drink = 0.6 oz pur e alcohol) Sex Assigned at Date Recorded Not on file documented as of this encounter Plan of Treatment Not on file documented as of this encounter Visit Diagnoses Not on filedocumented in this encounter Care Teams Liquid Center Assembler Relationship Specialty Start Date End Date Major Rosario MD PCP - General Internal Medicine 09/05/19 documented as of this encounter
--- OUTSIDE RECORDS SUMMARY | 2024-05-23 09:33 | XMS_ITS | Encounter Summary ---
Author Organization [facility] Address [address] [place] [address] Care Team Providers Care Rigging Supervisor Name Role Phone [facility], Pcp Primary Care Provider Aye Zepeda Primary Care Provider Major Alatorre MD Primary Care Provider Sacha Mack MD Primary Care Provider Major Grayson MD Primary Care Provider Hyun nick Encounter Details Date Type Department Care Team Description 11/13/2018 Inspecting Supervisor Report Medical Records [address] [place] [id number] Major Rosario MD Social History Tobacco Use [...] on filedocumented in this encounter Care Teams Rigging Supervisor Relationship Specialty Start Date End Date [facility], Pcp PCP - General Internal Medicine 08/31/17 01/09/19 Aye Tenorio PCP - General Geriatrics 01/10/19 03/25/19 Major Rosario MD PCP - General Internal Medicine 03/26/19 07/14/19 Sacha Alegre MD PCP - General Internal Medicine 07/15/19 09/04/19 Major Rosario MD PCP - General Internal Medicine 09/05/19 documented as of this encounter
--- OUTSIDE RECORDS SUMMARY | 2024-05-23 09:33 | XMS_ITS | Encounter Summary ---
Author Organization [facility] Address [address] [place] [address] Care Team Providers Care Soil Sort Worker Name Role Phone Major Rosario MD Primary Care Provider Hyun nick Encounter Details Date Type Department Care Team Description 09/18/2023 Hospital Medical Records [address] [place] [address] Fredrick Rodriguez, DO [address] [facility] [address] [facility] [place] [address] Social History Tobacco Use Types Packs/Day Years [...] on filedocumented in this encounter Care Teams Soil Sort Worker Relationship Specialty Start Date End Date Major Rosario MD PCP - General Internal Medicine 09/05/19 documented as of this encounter
--- OUTSIDE RECORDS SUMMARY | 2024-05-23 09:34 | XMS_ITS | Encounter Summary ---
Author Organization [facility] Address [address] [place] [address] Care Team Providers Care Hackler Doll Wigs Name Role Phone Aye Tenorio Primary Care Provider Major Alatorre MD Primary Care Provider Sacha Mack MD Primary Care Provider Major Grayson MD Primary Care Provider Hyun nick Encounter Details Date Type Department Care Team Description 02/28/2019 Threading Machine Tender Report Medical Records [address] [place] [address] Major Rosario MD Social History Tobacco Use [...] on filedocumented in this encounter Care Teams Hackler Doll Wigs Relationship Specialty Start Date End Date Aye Tenorio PCP - General Geriatrics 01/10/19 03/25/19 Major Rosario MD PCP - General Internal Medicine 03/26/19 07/14/19 Sacha Alegre MD PCP - General Internal Medicine 07/15/19 09/04/19 Major Rosario MD PCP - General Internal Medicine 09/05/19 documented as of this encounter
--- OUTSIDE RECORDS SUMMARY | 2024-05-23 09:34 | XMS_ITS | Encounter Summary ---
Author Organization [facility] Address [address] [place] [address] Care Team Providers Care Copper Plate Printer Name Role Phone Rolly Butler MD Primary Care Provider Unavail able Bala, Pcp Primary Care Provider Aye Zepeda Primary Care Provider UnavailMajor Huitron MD Primary Care Provider Unavailab Sacha Peraza MD Primary Care Provider Major Grayson MD Primary Care Provider Hyun nick Encounter Details Date Type Department Care Team Description 07/25/2008 Old Medical Records Medical Records [address] [place] [id number] Abstract, Provider Social History Tobacco Use Types Packs/Day Years Used Date Smoking Tobacco: Never Assessed Sex Assigned at Date Recorded Not on file documented as of this encounter Plan of Treatment Not on file documented as of this encounter Visit Diagnoses Not on filedocumented in this encounter Care Teams Copper Plate Printer Relationship Specialty Start Date End Date Rolly Butler MD PCP - General 10/09/1991 08/30/17 Bala, Pcp PCP - General Internal Medicine 08/31/17 01/09/19 Aye Tenorio PCP - General Geriatrics 01/10/19 03/25/19 Major Rosario MD PCP - General Internal Medicine 03/26/19 07/14/19 Sacha Alegre MD PCP - General Internal Medicine 07/15/19 09/04/19 Major Rosario MD PCP - General Internal Medicine 09/05/19 documented as of this encounter
--- OUTSIDE RECORDS SUMMARY | 2024-05-23 09:34 | XMS_ITS | Encounter Summary ---
Author Organization [facility] Address [address] [place] [address] Care Team Providers Care Superintendent Operations Division Name Role Phone Major Rosario MD Primary Care Provider Sacha Mack MD Primary Care Provider Major Grayson MD Primary Care Provider Hyun nick Encounter Details Date Type Department Care Team Description 03/29/2019 Transfer Records Medical Records [address] [place] [address] Abstract, Provider Social History Tobacco Use Types [...] on filedocumented in this encounter Care Teams Superintendent Operations Division Relationship Specialty Start Date End Date Major Rosario MD PCP - General Internal Medicine 03/26/19 07/14/19 Sacha Alegre MD PCP - General Internal Medicine 07/15/19 09/04/19 Major Rosario MD PCP - General Internal Medicine 09/05/19 documented as of this encounter
--- OUTSIDE RECORDS SUMMARY | 2024-05-23 09:34 | XMS_ITS | Encounter Summary ---
Author Organization [facility] Address [address] [place] [address] Care Team Providers Care Feeder Catcher Tobacco Name Role Phone Community, Pcp Primary Care Provider Aye Zepeda Primary Care Provider Major Alatorre MD Primary Care Provider Sacha Mack MD Primary Care Provider Major Grayson MD Primary Care Provider Hyun nick Encounter Details Date Type Department Care Team Description 11/21/2018 Old Medical Records Medical Records [address] [place] [id number] Abstract, Provider Social History Tobacco Use Types [...] on filedocumented in this encounter Care Teams Feeder Catcher Tobacco Relationship Specialty Start Date End Date [facility], Pcp PCP - General Internal Medicine 08/31/17 01/09/19 Aye Tenorio PCP - General Geriatrics 01/10/19 03/25/19 Major Rosario MD PCP - General Internal Medicine 03/26/19 07/14/19 Sacha Alegre MD PCP - General Internal Medicine 07/15/19 09/04/19 Major Rosario MD PCP - General Internal Medicine 09/05/19 documented as of this encounter
--- NOTE | 2024-05-23 10:30 | A.OFFVIS_ITS ---
Intake Intake Visit Reasons: Pump training Owner Manager Required: No Accompanied by: Self / Same As Patient Allergies No Known Allergies Allergy (Verified 02/29/24 09:29) HPI Comprehensive Diabetes Asmnt Most Recent Diabetes Results: No Data to Display [facility] Medical History Vitamin D deficiency Multinodular thyroid HLD (hyperlipidemia) HTN (hypertension) T1DM (type 1 diabetes mellitus) Surgical History Hx of prior ablation treatment Hx of colonoscopy History of ear surgery Family History Father Diabetes Mother Colonic polyp Social History Household Members: Family and Children Patient Tobacco Use Status: Former Tobacco user Cigarette Packs Per Day: 1 Years Smoked: 10 Assessment & Plan Assessment & Plan (1) T1DM (type 1 diabetes mellitus): Code(s): E10.9 - Type 1 diabetes mellitus without complications Qualifiers: Diabetes mellitus complication status: with hyperglycemia Qualified Code(s): E10.65 - Type 1 diabetes mellitus with hyperglycemia Plan: Patient presents for pump training for iLet pump and CGM training today. The following topics were reviewed today: -Pump therapy basic concepts: Basal/bolus -Device settings: Bluetooth/mobile connection (if applicable), correct date and time, sound volume -CGM settings(if integrated system): CGM graft views and trend arrows, alerts and alarms, Start new sensor Patient instructed to only announce meals that have carbohydrates For the 1st few days: Eat meals that have usual amount of carbs for you in announce them as usual Wait at least 4 hours between eating meals with carbs and announcing again If you are eating between meals, low carb snacks are the best option. Announce meal right away when you start eating If you forget and is more than 30 minutes since started eating do not announce Avoid over treating lows that occur after meals Always have extra supplies: CGM sensor Supply to refill your insulin cartridge and replace your infusion set Blood glucose and ketone testing supplies Extra insulin Treatment for low blood glucose Emergency contact information Ketone action plan Keep elpidio open on your phone, keep your ilet paired with the elpidio Always sink her data before appointments with your healthcare provider BG run mode: I will go in to BG mode if not receiving CGM glucose readings You will be required to enter BG into pump every 4 hours after 72 hours insulin delivery will stop In the week of pump therapy you will need to enter BG every hour after 48 hours without CGM in the 1st week insulin delivery will stop Insulin delivery settings Instructed patient to only use room temperature insulin, how to load cartridge or fill pod, with insulin. Fill tubing and cannula (if applicable) Inserting infusion set or starting pod Troubleshooting after starting new pod or inserting new insulin set: Occlusion, adhesive tape sensitivity, redness Check BG 2 hours after site change Safety information: Importance of a backup plan, for manual injections, proper prescriptions and emergency supplies ketone strips, and rules for testing for ketones Patient was able to insert insulin set today without difficulty. Patient understands the basic concepts of pump therapy, how to give insulin for meals and snacks, how to troubleshoot for hyper and hypoglycemia. Patient will follow up with [facility] as instructed Patient will contact [facility] with questions or concerns, patient given IT number to support in any technical issues related to insulin pump Portions of this note were created using voice recognition software, please excuse any words or phrases that may have been misinterpreted. Coding Level of Care Code Est Pt Level 1 (75650) Diagnoses Type 1 diabetes mellitus with hyperglycemia E10.65 Diabetes mellitus complication status: with hyperglycemia
== END 2024-05-23 10:33 | disposition home or self-care (01) ==
PROVIDERS: PCP Internal Medicine; Visit Provider Registered Nurse Diabetes Educator
DX: E10.65 Type 1 diabetes mellitus with hyperglycemia (principal)

== ENCOUNTER → 2024-05-23 09:04 | Outpatient (BNVA) | payer OTHER, SELFPAY | PROVIDERS: PCP Internal Medicine; Visit Provider Registered Nurse Diabetes Educator | DX: E10.65 Type 1 diabetes mellitus with hyperglycemia (principal); Z79.4 Long term (current) use of insulin; Z96.41 Presence of insulin pump (external) (internal) | CPT/HCPCS: 99211 ==

== ENCOUNTER 2024-05-23 10:35 | Outpatient (REF) | payer OTHER, SELFPAY ==
[2024-05-23 12:08] LABS: Cholesterol 183 mg/dL (<200); HDL Cholesterol 58 mg/dL (>40); LDL Cholesterol Calculated 110 mg/dL (<100); Triglycerides 77 mg/dL (<150)
== END 2024-05-23 10:36 | disposition home or self-care (01) ==
LOC: HO.10HDL 10:35
PROVIDERS: Visit Provider Internal Medicine Endocrinology, Diabetes & Metabolism
DX: E10.65 Type 1 diabetes mellitus with hyperglycemia (principal)
CPT/HCPCS: 36415; 80061

== ENCOUNTER 2024-05-30 09:20 | Outpatient (AMB) | payer OTHER, SELFPAY ==
--- NOTE | 2024-05-30 09:51 | A.OFFVIS_ITS ---
Intake Intake Visit Reasons: 30 min Elevator Service Mechanic Required: No Accompanied by: Self / Same As Patient Allergies No Known Allergies Allergy (Verified 02/29/24 09:29) HPI Comprehensive Diabetes Asmnt Most Recent Diabetes Results: Hemoglobin A1c 6.1 % 10/14/19 Microalb/Creat Ratio 4.1 ug/mg cr (<30) 12/08/22 Cholesterol 183 mg/dL (<200) 05/23/24 HDL Cholesterol 58 mg/dL (>40) 05/23/24 Triglycerides 77 mg/dL (<150) 05/23/24 Creatinine 0.86 mg/dL (0.5-1.4) 12/08/22 Blood Urea Nitrogen 15 mg/dL (9-16) 12/08/22 Sodium 138 mmol/L (135-145) 12/08/22 Potassium 4.1 mmol/L (3.3-5.1) 12/08/22 Chloride 107 mmol/L (96-108) 12/08/22 Carbon Dioxide 25 mmol/L (22-29) 12/08/22 Calcium 9.2 mg/dL (8.4-10.2) 12/08/22 AST 12 U/L (5-31) 12/08/22 ALT 9 U/L (0-31) 12/08/22 Total Protein 6.9 g/dL (6.5-8.0) 12/08/22 Albumin 4.0 g/dL (3.5-5.0) 12/08/22 PFSH Medical History Vitamin D deficiency Multinodular thyroid HLD (hyperlipidemia) HTN (hypertension) T1DM (type 1 diabetes mellitus) Surgical History Hx of prior ablation treatment Hx of colonoscopy History of ear surgery Family History Father Diabetes Mother Colonic polyp Social History Household Members: Family and Children Patient Tobacco Use Status: Former Tobacco user Cigarette Packs Per Day: 1 Years Smoked: 10 Assessment & Plan Assessment & Plan (1) T1DM (type 1 diabetes mellitus): Code(s): E10.9 - Type 1 diabetes mellitus without complications Qualifiers: Diabetes mellitus complication status: with hyperglycemia Qualified Code(s): E10.65 - Type 1 diabetes mellitus with hyperglycemia Plan: Patient presents for pump training for iLet pump and CGM training today. The following topics were reviewed today: -Pump therapy basic concepts: Basal/bolus -For most effective glucose control bolus prior to meals - Off pump backup insulin plan iLet Alerts: ??? High Alert: 300 mg/dl ??? Low Alert: 75 mg/dl CGM: Above target:29.6% At target:69.3% Below target:33.6% Patient's average glucose for the past 7 days 159.4 mg/dL TDD:65.2 units Basal:33.6 units Patient has transitioned from T slim to iLet Patient is announcing meals appropriately, glucose has improved. Overall patient is very satisfied with change Instructed patient to only use room temperature insulin, how to load cartridge or fill pod, with insulin. Fill tubing and cannula (if applicable) Troubleshooting after starting new pod or inserting new insulin set: Occlusion, adhesive tape sensitivity, redness Check BG 2 hours after site change Reviewed Safety information: Importance of a backup plan, for manual injections, proper prescriptions and emergency supplies ketone strips, and rules for testing for ketones Patient understands the basic concepts of pump therapy, how to give insulin for meals and snacks, how to troubleshoot for hyper and hypoglycemia. Patient will follow up with [facility] as instructed Patient will contact [facility] with questions or concerns, patient given IT number to support in any technical issues related to insulin pump Portions of this note were created using voice recognition software, please excuse any words or phrases that may have been misinterpreted. Coding Level of Care Code Est Pt Level 1 (06394) Diagnoses Type 1 diabetes mellitus with hyperglycemia E10.65 Diabetes mellitus complication status: with hyperglycemia
--- OUTSIDE RECORDS SUMMARY | 2024-05-30 10:04 | XMS_ITS | Encounter Summary ---
Author Organization [facility] Address [address] [place] [address] Care Team Providers Care Education Liaison Name Role Phone Community, Pcp Primary Care Provider Aye Zepeda Primary Care Provider Major Alatorre MD Primary Care Provider Sacha Mack MD Primary Care Provider Major Grayson MD Primary Care Provider Hyun nick Encounter Details Date Type Department Care Team Description 11/21/2018 Old Medical Records Medical Records [address] [place] [id number] Abstract, Provider Social History Tobacco Use Types [...] on filedocumented in this encounter Care Teams Education Liaison Relationship Specialty Start Date End Date [facility], Pcp PCP - General Internal Medicine 08/31/17 01/09/19 Aye Tenorio PCP - General Geriatrics 01/10/19 03/25/19 Major Rosario MD PCP - General Internal Medicine 03/26/19 07/14/19 Sacha Alegre MD PCP - General Internal Medicine 07/15/19 09/04/19 Major Rosario MD PCP - General Internal Medicine 09/05/19 documented as of this encounter
--- OUTSIDE RECORDS SUMMARY | 2024-05-30 10:04 | XMS_ITS | Encounter Summary ---
Author Organization [facility] Address [address] [place] [address] Care Team Providers Care Director Hardware Name Role Phone Rolly Butler MD Primary Care Provider Unavail able Bala, Pcp Primary Care Provider Aye Zepeda Primary Care Provider UnavailMajor Huitron MD Primary Care Provider Unavailab Sacha Peraza MD Primary Care Provider Major Grayson MD Primary Care Provider Hyun nick Encounter Details Date Type Department Care Team Description 07/25/2008 Old Medical Records Medical Records [address] [place] [id number] Abstract, Provider Social History Tobacco Use Types Packs/Day Years Used Date Smoking Tobacco: Never Assessed Sex Assigned at Date Recorded Not on file documented as of this encounter Plan of Treatment Not on file documented as of this encounter Visit Diagnoses Not on filedocumented in this encounter Care Teams Director Hardware Relationship Specialty Start Date End Date Rolly [...]
--- OUTSIDE RECORDS SUMMARY | 2024-05-30 10:04 | XMS_ITS | Encounter Summary ---
Author Organization [facility] Address [address] [place] [address] Care Team Providers Care Hand Tool Filer Name Role Phone Major Rosario MD Primary Care Provider Unavailab le Reason for Visit * Reason Onset Date Comments Error 03/19/2021 Encounter Details Date Type Department Care Team Description 03/19/2021 Telephone Gastroenterology - [place] [address] [phone] Hugh Corrigan PA-C 175 [facility] [address] [place] [address] Error Social History Tobacco Use Types Packs/Day [...] on filedocumented in this encounter Care Teams Hand Tool Filer Relationship Specialty Start Date End Date Major Rosario MD PCP - General Internal Medicine 09/05/19 documented as of this encounter
--- OUTSIDE RECORDS SUMMARY | 2024-05-30 10:04 | XMS_ITS | Encounter Summary ---
Author Organization [facility] Address [address] [place] [address] Care Team Providers Care Grey Goods Examiner Name Role Phone Major Rosario MD Primary Care Provider Hyun nick Encounter Details Date Type Department Care Team Description 09/20/2023 Orders Only Medical Records [address] [place] [address] Fredrick Rodriguez DO 175 [facility] 200 [facility] [place] [address] Social History Tobacco Use Types Packs/Day Years [...] Name Priority Date/Time Associated Diagnosis Comments OUTSIDE COLONOSCOPY Routine 09/18/2023 documented in this encounter Results * OUTSIDE COLONOSCOPY (09/18/2023) Fredrick Rodriguez DO RADIOLOGY documented in this encounter Visit Diagnoses Not on filedocumented in this encounter Care Teams Grey Goods Examiner Relationship Specialty Start Date End Date Major Rosario MD PCP - General Internal Medicine 09/05/19 documented as of this encounter
--- OUTSIDE RECORDS SUMMARY | 2024-05-30 10:04 | XMS_ITS | Encounter Summary ---
Author Organization [facility] Address [address] [place] [address] Care Team Providers Care Manufacturing Engineer Automotive Name Role Phone Major Rosario MD Primary Care Provider Hyun nick Encounter Details Date Type Department Care Team Description 09/18/2023 Hospital Medical Records [address] [place] [address] Fredrick Rodriguez, DO 175 [facility] [address] [facility] [place] [address] Social History Tobacco Use Types Packs/Day Years [...] on filedocumented in this encounter Care Teams Manufacturing Engineer Automotive Relationship Specialty Start Date End Date Major Rosario MD PCP - General Internal Medicine 09/05/19 documented as of this encounter
--- OUTSIDE RECORDS SUMMARY | 2024-05-30 10:04 | XMS_ITS | Encounter Summary ---
Author Organization [facility] Address [address] [place] [address] Care Team Providers Care Director Of Estate Name Role Phone Major Rosario MD Primary Care Provider Unavailab le Reason for Visit * Reason Onset Date Comments Medication 09/07/2023 Encounter Details Date Type Department Care Team Description 09/07/2023 Refill Gastroenterology - [place] 175 [facility] 200 [place] [phone] Fredrick Rodriguez DO 175 [facility] 200 [facility] [place] [address] Medication Social History Tobacco Use Types Packs/Day Years [...] filedocumented in this encounter Care Teams Director Of Estate Relationship Specialty Start Date End Date Major Rosario MD PCP - General Internal Medicine 09/05/19 documented as of this encounter
--- OUTSIDE RECORDS SUMMARY | 2024-05-30 10:04 | XMS_ITS | Encounter Summary ---
Author Organization [facility] Address [address] [place] [address] Care Team Providers Care Balance Wheel Screw Hole Driller Name Role Phone Community, Pcp Primary Care Provider Aye Zepeda Primary Care Provider Major Alatorre MD Primary Care Provider Sacha Mack MD Primary Care Provider Major Grayson MD Primary Care Provider Hyun nick Encounter Details Date Type Department Care Team Description 11/13/2018 Crossbow Maker Report Medical Records [address] [place] [address] Major Rosario MD Social History Tobacco Use [...] on filedocumented in this encounter Care Teams Balance Wheel Screw Hole Driller Relationship Specialty Start Date End Date [facility], Pcp PCP - General Internal Medicine 08/31/17 01/09/19 Aye Tenorio PCP - General Geriatrics 01/10/19 03/25/19 Major Rosario MD PCP - General Internal Medicine 03/26/19 07/14/19 Sacha Alegre MD PCP - General Internal Medicine 07/15/19 09/04/19 Major Rosario MD PCP - General Internal Medicine 09/05/19 documented as of this encounter
--- OUTSIDE RECORDS SUMMARY | 2024-05-30 10:04 | XMS_ITS | Encounter Summary ---
Author Organization [facility] Address [address] [place] [address] Care Team Providers Care Computed Tomography Technician Name Role Phone Major Rosario MD Primary Care Provider Sacha Mack MD Primary Care Provider Major Grayson MD Primary Care Provider Hyun nick Encounter Details Date Type Department Care Team Description 03/29/2019 Transfer Records Medical Records [address] [place] [address] Abstract, Provider Social History Tobacco Use Types [...] on filedocumented in this encounter Care Teams Computed Tomography Technician Relationship Specialty Start Date End Date Major Rosario MD PCP - General Internal Medicine 03/26/19 07/14/19 Sacha Alegre MD PCP - General Internal Medicine 07/15/19 09/04/19 Major Rosario MD PCP - General Internal Medicine 09/05/19 documented as of this encounter
--- OUTSIDE RECORDS SUMMARY | 2024-05-30 10:04 | XMS_ITS | Encounter Summary ---
Author Organization [facility] Address [address] [place] [address] Care Team Providers Care Ophthalmic Lens Inspector Name Role Phone Community, Pcp Primary Care Provider Aye Zepeda Primary Care Provider Major Alatorre MD Primary Care Provider Sacha Mack MD Primary Care Provider Major Grayson MD Primary Care Provider Hyun nick Encounter Details Date Type Department Care Team Description 12/03/2018 Old Medical Records Medical Records [address] [place] [address] Abstract, Provider Social History Tobacco Use Types [...] on filedocumented in this encounter Care Teams Ophthalmic Lens Inspector Relationship Specialty Start Date End Date [facility], Pcp PCP - General Internal Medicine 08/31/17 01/09/19 Aye Tenorio PCP - General Geriatrics 01/10/19 03/25/19 Major Rosario MD PCP - General Internal Medicine 03/26/19 07/14/19 Sacha Alegre MD PCP - General Internal Medicine 07/15/19 09/04/19 Major Rosario MD PCP - General Internal Medicine 09/05/19 documented as of this encounter
--- OUTSIDE RECORDS SUMMARY | 2024-05-30 10:04 | XMS_ITS | Encounter Summary ---
Author Organization [facility] Address [address] [place] [address] Care Team Providers Care Programmer Engineering And Scientific Name Role Phone Major Rosario MD Primary Care Provider Hyun nick Encounter Details Date Type Department Care Team Description 10/02/2019 Refill Adult Medicine [address] [address] Major Rosario MD Social History Tobacco Use [...] Diclofenac and dicylomine Preferred pharmacy: [id number] - [place], [place] - [address] [facility] [address] [facility] documented in this encounter Plan of Treatment Not on file documented as of this encounter Visit Diagnoses Not on filedocumented in this encounter Care Teams Programmer Engineering And Scientific Relationship Specialty Start Date End Date Major Rosario MD PCP - General Internal Medicine 09/05/19 documented as of this encounter
--- OUTSIDE RECORDS SUMMARY | 2024-05-30 10:04 | XMS_ITS | Clinical Summary ---
Author Organization [facility] Address [address] [facility] [place] [address] Care Team Providers Care Software Test Engineer Name Role Phone Major Rosario MD Primary Care Provider Unavailab le Allergies No known active allergies Medications Medication Sig Dispensed Refills Start Date End Date Status Insulin Infusion Pump (MINIMED 530G INSULIN PUMP) Device by Does not apply route. As instructed 0 Active atorvastatin (LIPITOR) 10 MG tablet Take 10 mg by mouth daily. 0 Active insulin lispro (HUMALOG) 100 UNIT/ML injection Inject into the skin 3 times daily (before meals). Pump does it all 0 Active paroxetine (PAXIL) 20 MG tablet Take 20 mg by mouth every morning. 1 daily 0 Active sertraline (ZOLOFT) 50 MG tablet Take 50 mg by mouth daily. 3 12/11/2018 Active Insulin Glargine (LANTUS SOLOSTAR) 100 UNIT/ML Solution Pen-injector as needed. 2 11/25/2018 Active ALBUTEROL SULFATE 108 (90 Base) MCG/ACT Aero Soln INL 2 PFS PO Q 4 H PRF WHZ 1 11/21/2018 Active Cholecalciferol (VITAMIN D) 2000 units Tab Take 2,000 Units by mouth. 6 12/07/2018 Active NOVOLOG 100 UNIT/ML injection ADMINISTER UP TO 90 UNITS DAILY VIA INSULIN PUMP DAILY 0 05/17/2019 Active ondansetron (ZOFRAN) 4 MG tablet Take 1 Tab by mouth every 4 hours as needed for Nausea. 60 Tab 6 06/25/2019 Active IA-ACID GAS RELIEF 80 MG chewable tablet CHEW AND SWALLOW ONE TABLET EVERY 6 HOURS NEEDED FOR FLATULENCE 60 Tab 5 07/23/2019 Active gabapentin (NEURONTIN) 300 MG capsule TAKE 1 CAPSULE BY MOUTH ONCE DAILY AT BEDTIME 0 05/27/2023 Active lisinopril (PRINIVIL,ZESTRIL ) 2.5 MG tablet Take 1 Tablet by mouth daily. 0 Active pantoprazole (PROTONIX) 40 MG tablet Take 1 Tablet by mouth daily. Take in am on emptys tomach, wait 30 mins and then eat to activate the medication 30 Tablet 11 06/27/2023 Active dicyclomine (BENTYL) 10 MG capsule Take 1 Capsule by mouth 2 times daily. 1 twice a day 120 Capsule 3 06/27/2023 Active polyethylene glycol (GoLYTELY,NuLYTEL Y) 236 g suspension Take 240 mL by mouth once for 1 dose. May substitue for any PEG. Follow instructions given by office. 4000 mL 0 09/07/2023 Active bisacodyl (DULCOLAX) 5 MG EC tablet Take 2 tablets by mouth right before your first dose of liquid prep. 2 Tablet 0 09/07/2023 Active bisacodyl (DULCOLAX) 5 MG EC tablet Take 2 tablets by mouth right before your first dose of liquid prep. 2 Tablet 0 09/07/2023 Active polyethylene glycol (GoLYTELY,NuLYTEL Y) 236 g suspension Take 240 mL by mouth once for 1 dose. Take 4L by mouth once for one dose. May substitue any PEG. Starting at 6PM the night before your procedure drink 1 8oz glasses at your own pace until rectals run clear. 4000 mL 0 09/07/2023 Active Active Problems Problem Noted Date Postprandial abdominal bloating IBS (irritable bowel syndrome) Early satiety Nausea Diabetes mellitus type 2, uncomplicated Asthma Anxiety GERD (gastroesophageal reflux disease) Hyperlipidemia Obesity Rectal pain Family History Medical History Relation Name Comments Colon Polyps Brother CA Breast Maternal Grandmother 70's Cancer of the Stomach Maternal Grandmother Cancer of the Stomach Paternal Grandfather Cancer of the Stomach Paternal Grandmother Relation Name Status Comments Brother Father Alive Maternal Grandmother Mother Alive Paternal Grandfather Paternal Grandmother Social History Tobacco Use Types Packs/Day Years Used Date Smoking Tobacco: Former Cigarettes Q uit: 09/10/2007 Smokeless Tobacco: Never Alcohol Use Standard Drinks/Week Comments No 0 (1 standard drink = 0.6 oz pur e alcohol) Sex Assigned at Date Recorded Not on file Last Filed Vital Signs Vital Sign Reading Time Taken Comments Blood Pressure 126/64 06/27/2023 10:15 AM EDT Pulse 87 06/27/2023 10:15 AM EDT Temperature 36.9 ??C (98.5 ??F) 06/25/2019 11:13 AM E DT Respiratory Rate - - Oxygen Saturation 95% 06/27/2023 10:15 AM EDT Inhaled Oxygen Concentration - - Weight 90.7 kg (200 lb) 06/27/2023 10:15 AM EDT Height 165.1 cm (5' 5 ) 06/27/2023 10:15 AM EDT Body Mass Index 33.28 06/27/2023 10:15 AM EDT Plan of Treatment Health Maintenance Due Date Last Done Comments Covid-19 Vaccine (#1) 03/15/1972 DIABETES/HEART DISEASE: BABATUNDE AL CHOLESTEROL (LDL) 09/13/1989 DIABETES: ANNUAL EYE EXAM 09/13/1989 DIABETES: ANNUAL FOOT EXAM 09/13/1989 DIABETES: ANNUAL URINE PROTE IN TEST (MICROALBUMIN) 09/13/1989 DIABETES: BLOOD SUGAR CONTRO L TEST (HGBA1C) 09/13/1989 HEPATITIS C SCREENING 09/13/1989 DTAP/TDAP/TD (1 - Tdap) 09/13/1990 PNEUMOCOCCAL VACCINE FOR HIG H RISK PATIENTS (#1) 09/13/1990 CERVICAL CANCER SCREENING 09/13/1992 BASELINE HEALTH EXAM 40-64 2011 MAMMOGRAM 2011 SHINGLES VACCINE (1 of 2) 09/13/2021 INFLUENZA (#1) 2023 BMI CHECK/ADVISE 04/10/2024 09/11/2017 DEPRESSION SCREENING/FOLLOWUP 04/10/2024 SOCIAL NEEDS SCREENING 04/10/2024 COLON CANCER SCREENING 09/17/2033 09/18/2023, 2017 Care Teams Software Test Engineer Relationship Specialty Start Date End Date Major Rosario MD PCP - General Internal Medicine 09/05/19
== END 2024-05-30 10:09 | disposition home or self-care (01) ==
PROVIDERS: PCP Internal Medicine; Visit Provider Registered Nurse Diabetes Educator
DX: E10.65 Type 1 diabetes mellitus with hyperglycemia (principal)

== ENCOUNTER → 2024-05-30 09:20 | Outpatient (BNVA) | payer OTHER, SELFPAY | PROVIDERS: PCP Internal Medicine; Visit Provider Registered Nurse Diabetes Educator | DX: E10.65 Type 1 diabetes mellitus with hyperglycemia (principal); Z79.4 Long term (current) use of insulin; Z96.41 Presence of insulin pump (external) (internal) | CPT/HCPCS: 99211 ==

== ENCOUNTER 2024-06-07 09:23 | Outpatient (AMB) | payer OTHER, SELFPAY ==
--- NOTE | 2024-06-07 07:59 | A.OFFVIS_ITS ---
Vital Signs 06/07/24 09:41 Height 5 ft 5 in Weight 200 lb 9.93 oz BMI 33.4 BP 118/74 Blood Pressure Location Rt brachial Position Sitting Pulse 108 H Pulse Source Pulse Oximeter Pulse Oximetry (%) 99 Oxygen Delivery Method Room Air Intake Visit Reasons: T1DM Intake Note: Patient presents today to for Type 1 Diabetes Mellitus: Last Diabetic eye exam was on: 01/2023 Last Podiatry exam was on: Does not see a Currency Exchange Specialist Most recent HbA1c: 7.5%, 06/07/2024 Random Glucose- 137mg/dL, Today Agency Appointments Supervisor Required: No Accompanied by: Self / Same As Patient Allergies No Known Allergies Allergy (Verified 02/29/24 09:29) HPI Comments Details: etails: 53 YO F with PMHx T1DM, multinodular thyroid and HLD who is seen in F/U for T1DM. She was previously followed by [facility]. . Patient last saw Dr. Nath in February and Molly WHEELER several weeks ago. She was recently switched over to an islet insulin pump in his doing well on this. She has announcing all of her meals. Some days she has announcing just 2 meals but is only eating 2 meals per day. Sensor download shows a GME my of 7.1% Total daily dose of insulin 63 basal 32 units bolus 8 for breakfast lunch closer to 14 for supper She has low 0.8% of the time. Her lows have been very mild and transient. Her targets at night were changed to 130 and this has improved this. Her daytime target is 120 1. T1DM: Initially diagnosed with T1DM at the age of 13 when she was diagnosed at her elementary school. She is mostly at goal, with some high sugars postprandially. Breakfast She does not have hypoglycemia awareness and does correct according to the rule of 15's. No hypoglycemia Family history of autoimmunity in her son with albinism. Has eyes checked yearly, last eye exam january 2024 , no history of Retinopathy. Denies neuropathy, does see podiatry. Denies any ulcerations. She will schedule with new podiatriist Denies nephropathy. On lisinopril 2.5 mg PO daily. UAC WNL 11/02/2021. no recent microalbumin of bmp HLD, on Atorvastatin 40 mg PO daily. LDL 110 04/2024 No known CAD. Has had Diabetes Education. No prior episodes of DKA. Denies episodes of severe hypoglycemia. 2. Multinodular Thyroid: Has a multinodular thyroid. Does complain of hair loss, dry skin, fatigue, weight gain. Denies any history of head or neck irradiation. Denies family history of thyroid cancer. US Thyroid: 12/01/2021 Right Thyroid Lobe: 4.7 x 1.3 x 1.5 cm, volume 4.8 mL. Previously 4.9 x 1.1 x 1.5 cm, volume 4.2 mL. Parenchyma: The gland echotexture is homogeneous. Thyroid vascularity is normal. Left Thyroid Lobe: 5.0 x 1.5 x 1.7 cm, volume 6.7 mL. Previously 4.8 x 1.0 x 1.6 cm, volume 4.0 mL. Parenchyma: The gland echotexture is homogeneous. Thyroid vascularity is normal. Isthmus: 0.2 cm in maximum AP dimension. Previously 0.3 cm. Estimated total number of nodules greater than or equal to 1 cm: 0. Dry Clipper Tender nodules are described as follows: 1.? Location: Right mid medial. ?? ? Size: 0.5 x 0.3 x 0.4 cm, volume 0.03 mL. ?? ? Previously: 0.4 x 0.3 x 0.4 cm, volume 0.03 mL. ?? ? Nodule characteristics: ?? ? Composition: Solid (2). ?? ? Echogenicity: Isoechoic (1). ?? ? Shape: Not taller than wide (0). ?? ? Margins: Smooth (0). ?? ? Echogenic Foci: None (0).? ACR TI-RADS total points: 3 Previous: 3 ?? ? ACR TI-RADS category: 3 Previous: 3 ? Significant change in size (>/= 20% in 2 dimensions and minimal increase of 2 mm or 50% or greater increase in volume): None ?? ? Change in features: None ?? ? Change in ACR TI-RADS risk category: None NODES: No lymphadenopathy is seen in the tissue surrounding the thyroid gland. [facility] Medical History Vitamin D deficiency Multinodular thyroid HLD (hyperlipidemia) HTN (hypertension) T1DM (type 1 diabetes mellitus) Surgical History Hx of prior ablation treatment Hx of colonoscopy History of ear surgery Family History Father Diabetes Mother Colonic polyp Social History Household Members: Family and Children Patient Tobacco Use Status: Former Tobacco user Cigarette Packs Per Day: 1 Years Smoked: 10 Physical Exam Vital Signs: Last Vital Signs Pulse 108 H 06/07/24 09:41 BP 118/74 06/07/24 09:41 Pulse Ox 99 06/07/24 09:41 Oxygen Delivery Method Room Air 06/07/24 09:41 BMI result Body Mass Index 33.4 Const Other: Absence of Cushingoid features. Absence of acromegalic features. Neck exam reveals nl size thyroid about 15 gms. No thyroid nodules palpable. No carotid bruits present. Lungs CTA. Heart S1 S2, Reg R/R. No M/R G. Skin exam reveals absence of vitiligo or acanthosis nigricans. No edema Visual exam of foot performed. No ulcerations or open lesions. No inter digit maceration or fissuring. + onychomycosis great toes, no callouses. Sensation intact to monofilament exam. Vibratory sensation is normal with 128 Hz tuning fork. good cap refill positive pulses Office Procedures Glucose Monitoring Details Details: see hpi [id number] - Glucose monitoring, continuous-physician I&R Procedure code (CPT) selection complete Results AMB Hemoglobin A1c AMB Hemoglobin A1c 7.5 % Last Edit by LIBAN Estrada on 06/07/24 10:02 Results Reviewed Results Reviewed: Laboratory Last Values Glucose (Clinic) 137 mg/dL (60-115) H 06/07/24 09:46 Assessment & Plan Assessment & Plan (1) T1DM (type 1 diabetes mellitus): Code(s): E10.9 - Type 1 diabetes mellitus without complications Category: Medical Qualifiers: Diabetes mellitus complication status: with hyperglycemia Qualified Code(s): E10.65 - Type 1 diabetes mellitus with hyperglycemia Plan: 53-year-old type 1 diabetic no known macro/macrovascular complications on an insulin pump with a recent A1c 06/07/24 7.5% which reflects only being on the islet pump for several weeks. I anticipate that her next A1c will be improved. She does not have a backup method for pump failure so I will send Lantus 32 units to be taken for pump failure. Humalog dosing for meals is 8 for breakfast lunch closer to 14 for supper. She is aware that if she does not have a functioning sensor that she needs to test and enter her glucose in her pump in order for it to continue to work. The patient had an opportunity to ask questions regarding treatment plan. The patient expressed understanding and agreement with the above treatment plan. The patient is aware they should contact our office by phone for worsening glucose readings or for any low blood sugars which may warrant a change in diabetes medication. Compliance is encouraged with medications and any followup testing/consults which may have been ordered. (2) HLD (hyperlipidemia): Code(s): E78.5 - Hyperlipidemia, unspecified Category: Medical Qualifiers: Hyperlipidemia type: unspecified Qualified Code(s): E78.5 - Hyperlipidemia, unspecified Plan: She takes her statin on a regular basis and LDL is 110. We will switch her over to rosuvastatin. She has an upcoming appointment with her PCP we will have labs done. She is also due for basic metabolic profile and urine microalbumin Orders: Orders Basic Metabolic Panel Today E10.65 - Type 1 diabetes mellitus with hyperglycemia AMB Hemoglobin A1c Today E10.65 - Type 1 diabetes mellitus with hyperglycemia Microalbumin, Random (w Creat) Today E10.65 - Type 1 diabetes mellitus with hyperglycemia Creatinine Urine Today E10.65 - Type 1 diabetes mellitus with hyperglycemia AMB Glucose Monitoring Today E10.65 - Type 1 diabetes mellitus with hyperglycemia Medications: New insulin glargine (Lantus Solostar U-100 Insulin) 32 units (0.32 mL) subcut QPM 30 days PRN 6 mL 1RF pump failure MDD 32n units insulin syringe-needle U-100 (BD Insulin Syringe Ultra-Fine) tid prn pump failure 100 ea 4RF rosuvastatin 10 mg PO DAILY 30 days 30 tabs 11RF Discontinued atorvastatin Discontinued Reason: Doctor's Order 40 mg PO BEDTIME 30 tabs 11RF E78.5 - Hyperlipidemia, unspecified insulin glargine (Lantus U-100 Insulin) take once daily prn for pump failure Discontinued Reason: Doctor's Order 40 units (0.4 mL) subcut DAILY 30 days PRN 10 mL 1RF pump failure Patient Instructions: The patient was counseled to achieve a target A1C of 7% (154 avg). Fasting blood sugars should be 90-130 in the morning and less than 180 two hours after meals. Reviewed the relationship between poor diabetic control and the development of complications. Take 15 carb carbohydrate grams to treat a low sugar (3-4 glucose tablets, half a glass of juice or 15 carbohydrate grams of soft candy such as gummie snacks). Recheck your sugar in 15 minutes and re-treat again with 15 carbohydrate grams if low or still with symptoms. Do not drive a car or operate machinery if you do not know what your blood sugar is, if it is low or in excess of 300. Check your feet daily looking for any signs of infection, drainage, redness, ulc eration and seek medical attention if this occurs. Break in shoes gradually and do not wear open-toed shoes or walk stocking footed or barefooted. Troubleshooting after starting new pod or inserting new insulin set: Occlusion, adhesive tape sensitivity, redness Check BG 2 hours after site change Safety information: Importance of a backup plan, for manual injections, proper prescriptions and emergency supplies ketone strips, and rules for testing for ketones Symptoms of DKA (diabetic ketoacidosis): early: frequent urination, dry mouth, fatigue, feeling ill, severe symptoms: ketones in the urine, abdominal pain, nausea, vomiting and weakness. It is important to hydrate with sugar free liquids every 15-30 minutes and bring the sugars down to normal levels. If you are moderate or severe with ketones or unable to bring glucose to less than 200, go to the emergency room. Sick day management reviewed Coding Level of Care Code Est Pt Level 4 (79919) Complex EM visit Add On G2211 Diagnoses Type 1 diabetes mellitus with hyperglycemia E10.65 Diabetes mellitus complication status: with hyperglycemia Hyperlipidemia, unspecified hyperlipidemia type E78.5 Hyperlipidemia type: unspecified CPT Codes Details - CPT: 47821 - Glucose monitoring, continuous-physician I&R ([id number]) Time Spent (min) 30
[2024-06-07 09:41] VITALS: BP 118/74; PULSE 108; O2SAT 99; BMI 33.4
[2024-06-07 09:50] LABS: Glucose, Whole Blood 137 mg/dL (60-115)
== END 2024-06-07 10:24 | disposition home or self-care (01) ==
PROVIDERS: PCP Internal Medicine; Visit Provider Nurse Practitioner Adult Health
DX: E10.65 Type 1 diabetes mellitus with hyperglycemia (principal); E78.5 Hyperlipidemia, unspecified
CPT/HCPCS: 95251; 99214; G2211

== ENCOUNTER → 2024-06-07 09:23 | Outpatient (BNVA) | payer OTHER, SELFPAY | PROVIDERS: PCP Internal Medicine; Visit Provider Nurse Practitioner Adult Health | DX: E10.65 Type 1 diabetes mellitus with hyperglycemia (principal); E78.5 Hyperlipidemia, unspecified | CPT/HCPCS: 82947; 83036; 99212 ==

== ENCOUNTER 2024-06-26 08:23 | Outpatient (AMB) | payer OTHER, SELFPAY ==
--- NOTE | 2024-06-26 08:26 | MHC.PC.OV ---
Vital Signs 06/26/24 08:38 Height 5 ft 5 in Weight 207 lb 6 oz BMI 34.5 BP 122/70 Blood Pressure Location Lt brachial Position Sitting Respiration 12 Pulse 70 Pulse Source Pulse Oximeter Temp 97.1 F Temp Source Oral Pulse Oximetry (%) 97 Oxygen Delivery Method Room Air Intake Visit Reasons: Est. Care / urology referral Intake Note: new patient to establish care and patient also needs referral to urology Clothing Presser Required: No Allergies No Known Allergies Allergy (Verified 06/26/24 08:47) Medication List - Last Reconciled 06/26/24 by HARRISON Granger-IVANA acetone (urine) test (Ketone Urine Test strips) As directed prn over 250, illness, nausea, vomiting blood sugar diagnostic (FreeStyle Lite Strips) 4x daily blood-glucose meter (FreeStyle [place] Lite kit) As directed cholecalciferol (vitamin D3) 25 mcg PO DAILY dicyclomine 10 mg PO TID gabapentin 300 mg PO BEDTIME glucagon 3 mg/actuation (Baqsimi) 3 mg intranasal ONCE insulin glargine (Lantus Solostar U-100 Insulin) 32 units (0.32 mL) subcut QPM PRN 30 days MDD 32n units insulin lispro 80 - 90 units (0.8 - 0.9 mL) subcut DAILY insulin syringe-needle U-100 (BD Insulin Syringe Ultra-Fine) tid prn pump failure lancets (FreeStyle Lancets) 4x daily lisinopril 2.5 mg PO DAILY 30 days multivitamin (One-A-Day Essential tablet) 1 tab PO DAILY pen needle, diabetic (1st Tier Unifine Pentips Plus) As directed tid for pump failure rosuvastatin 10 mg PO DAILY 30 days sertraline 50 mg PO DAILY zinc acetate 50 mg PO DAILY Tobacco use date assessed: 06/26/24 Dental Screening Dental Screen Date: 06/26/24 Did you have a dental visit in the last 12 months?: No Did you have a dental problem in the last 6 months where you did not have access to dental care?: No Was dental information given to patient?: Patient has dentist HPI HPI Comments History of Present Illness Details 53 y/o F with DM1, HLD, MDD, DEACON, family hx of breast ca (MGM), GERD, IBS, RLS, obesity, Asthma, HTN, multinodular thyroid, Vit d def, abnormal pap (ACSCUS, HPV), urinary incont, diabetic neuropathy s/p R ear surgery, colpo 2021 negative, - Colonoscopy and balloon dilation for esophageal stricture performed at [facility] in September 2023 Family hx: Mom colonic polyp , Dad DM, son with albinism. Health Maintenance Flu thinks up to date Tdap 12/29/23, PCV 13 12/29/23, PCV 23 03/24/11 Mammo 01/29/24 Pap 05/13/24 Colon September 2023 [facility], report requested. return 5 years DEXA: has never had one, ordered today Specialists: GI Endo Back Tender Pulp Drier [facility] Podiat[facility] Optho: [facility] eye last eye exam january 2024 , no history of Retinopathy. History of Present Illness The patient is a 53-year-old female presenting with a request for a complete physical examination and the establishment of care. 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 - Mood disorder secondary to major depressive disorder is treated with sertraline. - The patient has been diagnosed with Vitamin D deficiency and managed with supplementation. - Reports having IBS with moderate symptom control on dicyclomine. - Manages diabetic neuropathy with gabapentin. - She underwent a recent esophageal balloon dilation due to esophageal stricture. - Reports ongoing urinary incontinence, needs urology consult. Review of Systems - Ears: Denies pain except recent right-sided discomfort noted during examination. - Gastrointestinal: Reports moderate control of IBS symptoms. - Neurological: No mention of current neuropathy symptoms beyond ongoing management with gabapentin. Physical Exam General: Well developed, well nourished, in no acute distress. Appears stated age. Head: Normocephalic, atraumatic. Eyes: Pupils are equal, round and reactive to light and accommodation. Conjunctivae are clear. Vision grossly normal. Ears: TMs clear AU, EACS WNL. Right ear has some congestion likely due to seasonal allergies. Nose: Patent, with a little drainage on the right side. Recommended use of Flonase. Neck: Supple, no adenopathy or thyromegaly. Thyroid is nodular but nontender Breast: Edu on SBE Lungs: Clear to auscultation bilaterally. No rales, rhonchi or wheeze noted. Good air flow in all ewing. Heart: Regular rate and rhythm. No murmurs, click, rubs or gallops are noted. Abdomen: Bowel sounds present in all quadrants. The abdomen is soft, nontender, with no masses or organomegaly noted. No hernias are noted. : Deferred. Reviewed recommendations for routine BUILDING CONSTRUCTION ESTIMATOR. Referral to urology for urinary incontinence. Pulses: Peripheral pulses are equal and palpable bilaterally. Extremities: No clubbing, cyanosis nor edema is noted. Diabetic foot exam deferred as it was done in May. Neurologic: Gait and station normal. Cranial Nerves 2-12 intact. Motor strength grossly symmetrical and intact. No sensory loss. Balance normal. Skin: No rashes, ulcers, or lesions noted. Turgor is good. Skin color is good. Hair and nails are without abnormalities. Onychomycosis toe nails of R foot Psych: Normal eye contact, affect and mood appropriate, and normal interactions. Patient is alert and appropriate to context. On sertraline for major depressive disorder. Results Labs today normal lipid, cmp, urine microalbumin, tsh Vit D and Dexa pending Discussion Notes I discussed with the patient the imperative of obtaining a comprehensive set of labs to assess cholesterol and Vitamin D levels, with a subsequent review anticipated to adjust any treatments. We deliberated on the referral to urology in [place] for her urinary incont. I emphasized the seasonality and possibility of her unmet flu vaccine, advising her to verify its receipt and ensure update against influenza. We touched on the presence of nasal allergies contributing to her ear discomfort, recommending the reinstatement of Flonase as a conservative management pathway. All plans for medication or intervention were agreed upon by the patient and entered for execution pending the verification of her pharmacy details. Assessment and Plan 1. Type 1 Diabetes Mellitus: Under specialty management with stable control strategies. 2. Hyperlipidemia: Rosuvastatin LDL @ goal. 3. Hypertension: Lisinopril use monitored, encompassing dual protective benefits. 4. Major Depressive Disorder: Stable on sertraline. 5. Vitamin D Deficiency: Supplementation maintained, further levels to be assessed. 6. IBS: Dicyclomine for symptom control remains effective. 7. Diabetic Neuropathy: Gabapentin effective for symptom management. 8. Esophageal Stricture: Managed post dilation, monitoring to continue. 9. Urinary Incontinence: Advised referral to urology for formal evaluation. 10. Osteoporosis Screening: Bone density ordered with actions post result analysis. Patient Instructions - Verify flu vaccination status and consider completion if not received. - Follow-up with urology at [place] upon referral contact. - [facility] scheduling. - Engage with endocrinology for coordinated lab testing. - Utilize Flonase for allergy-related ear congestion as previously prescribed. - Contact immediately if any new symptoms or concerns arise prior to next appointment. -RTO 1 year CPE, sooner PRN Consent Consent was obtained verbally from the patient for the recommended lab work including cholesterol and Vitamin D, and for the urology referral. The patient was informed about the benefits of the comprehensive lab assessment and the risks involved with not undergoing routine monitoring, which she understood and agreed to. Consent for the bone density scan was discussed in terms of the need for osteoporosis screening, with understanding reached after a review of potential implications of a positive finding. Patient was informed and verbally consented to the use of an ambient scribe for clinic note documentation during this visit. An additional 30 minutes was spent addressing the problem(s) noted at todays visit. This includes time spent before the visit reviewing the chart, time spent during the visit, and time spent after the visit on documentation reviewing laboratory results, diagnostic imaging, medications, performing a medically necessary evaluation, counseling on diagnoses, care coordination, ordering appropriate tests, ordering appropriate medications, review of tests performed by other providers, reporting test results with the patient, communication with other healthcare providers. [facility] Medical History (Updated 06/26/24 @ 12:44 by Siri Diez, [facility]) Anxiety and depression ASCUS with positive high risk HPV cervical Asthma Diabetic neuropathy Dysmenorrhea Esophageal stricture GERD (gastroesophageal reflux disease) HLD (hyperlipidemia) HTN (hypertension) Hx of mammogram (~12/2023) Hypercholesterolemia IBS (irritable bowel syndrome) Multinodular thyroid Neuropathy RLS (restless legs syndrome) Sleep disturbance T1DM (type 1 diabetes mellitus) Thyroid disorder Vitamin D deficiency Surgical History (Updated 06/25/24 @ 09:39 by Tyra Davidson MA) History of ear surgery Hx of colonoscopy (~09/2023) Hx of prior ablation treatment Family History (Updated 06/25/24 @ 09:31 by Tyra Davidson MA) Father Diabetes Mother Colonic polyp Maternal Grandmother Breast cancer Cardiovascular disease Maternal Grandfather Cardiovascular disease Social History (Updated 06/26/24 @ 08:37 by Tyra Davidson MA) Household Members: None Housing: Apartment Are you a primary managed care coordinator to a significant other at home: No Do you presently have visiting nurse or other home services: No Alcohol intake: never Patient Tobacco Use Status: Former Tobacco user Cigarette Packs Per Day: 1 Years Smoked: 10 e-Cigarette/Vaping Use: Never Used Second Hand Smoke Exposure: No Current occupational status: employed 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 1. Little interest or pleasure in doing things: not at all 2. Feeling down, depressed, or hopeless: not at all 3. Trouble falling or staying asleep, or sleeping too much: more than half the days 4. Feeling tired or having little energy: more than half the days 5. Poor appetite or overeating: not at all 6. Feeling bad about yourself - or that you are a failure or have let yourself or your family down: not at all 7. Trouble concentrating on things, such as reading the newspaper or watching television: not at all 8. Moving or speaking so slowly that other people could have noticed. Or the opposite - being so fidgety or restless that you have been moving around a lot more than usual: not at all 9. Thoughts that you would be better off or of hurting yourself in some way: not at all Total score: 4 Depression Screening Interpretation: Positive Depression Screening Follow-up: Existing condition Depression Screening Done: Yes 19176 - PHQ-9 Billing: Yes Source: Developed by Drs. Deng Miller, Eri Daniels, Anthony Ferreira and colleagues, with an educational keshia from [employer]. Thrive Questionnaire Date Thrive assessed: 06/26/24 I am a: Patient What is your living situation today?: I have a steady place to live Within the past 12 months, did the food you bought not last and you didn't have the money to get more?: Never true Within the past 12 months, did you worry whether your food would run out before you got money to buy more?: Never true Do you have trouble paying for medicines?: No Do you have trouble getting transportation to medical appointments?: No Do you have trouble paying your heating and electricity bill?: Yes Do you have trouble taking care of your child, family member or friend?: No Do you have trouble with day-to-day activities such as bathing, preparing meals, shopping, managing finances, etc.?: No Are you currently unemployed and looking for a job?: No Are you interested in more education?: No Please select the resources that you would like help with: None Currently or been in a relationship where the following occur: No concerns reported THRIVE Score: 1 AUDIT C Alcohol Use Questionnaire (AUDIT-C) 1. How often do you have a drink containing alcohol?: Never 3. How often do you have six or more drinks on one occasion?: Never Total Score: 0 Score Reviewed/Action Taken: Yes DEACON-7 AMB Questionnaire DEACON-7 Date DEACON - 7 assessed: 06/26/24 Feeling nervous, anxious, or on edge: 1 = Several days Not being able to stop or control worryin = Not at all Worrying too much about different things: 1 = Several days Trouble relaxin = Several days Being so restless that it is hard to sit still: 0 = Not at all Becoming easily annoyed or irritable: 0 = Not at all Feeling afraid as if something awful might happen: 0 = Not at all Total DEACON-7 score (0-4 normal; 5-9 mild; 10-14 moderate; 15-21 severe): 3 Source: Developed by Drs. Deng Miller, Eri Daniels, Anthony Ferreira and colleagues, with an educational keshia from [employer]. DEACON-7 Assessment Billing DEACON-7 Assessment Tool: DEACON-7 Assessment 92353 Physical exam (Primary Care) Vital Signs: Last Vital Signs Temp 97.1 F 06/26/24 08:38 Pulse 70 06/26/24 08:38 Resp 12 06/26/24 08:38 BP 122/70 06/26/24 08:38 Pulse Ox 97 06/26/24 08:38 Oxygen Delivery Method Room Air 06/26/24 08:38 BMI result Body Mass Index 34.5 BMI Assessment/Plan discussion: High BMI High, discussed plan: lifestyle Tobacco/Smoking Status: Tobacco use Status Tobacco use date assessed 06/26/24 06/26/24 08:31 Patient Tobacco Use Status Former Tobacco user 06/26/24 08:37 e-Cigarette/Vaping Use Never Used 06/26/24 08:37 PHQ-9: PHQ-9 Score PHQ-9: Total score 4 06/26/24 08:48 Depression Screening Interpretation: Positive Depression Screening Follow-up: Existing condition Thrive Assessment: Date of Thrive Assessment Date Thrive assessed 06/26/24 06/26/24 08:28 Currently or been in a relationship where the following occur: No concerns reported Coding Level of Care Code Est Pt Level 4 (71056) New Pt Prev Care 40-64y(62217) Diagnoses Encounter for general adult medical examination with abnormal findings Z00.01 Mild episode of recurrent major depressive disorder F33.0 Major depression episode severity: mild DEACON (generalized anxiety disorder) F41.1 BMI 34.0-34.9,adult Z68.34 Class 1 obesity due to excess calories with serious comorbidity and body mass index (BMI) of 34.0 to 34.9 in adult E66.811; E66.09; Z68.34 Obesity type: due to excess calories Diabetes mellitus type 1, with complication, on terminal operations supervisor insulin pump E10.8; Z96.41 Hypertension, unspecified type I10 Hypertension type: unspecified Vitamin D deficiency E55.9 Mixed stress and urge urinary incontinence N39.46 Urinary Incontinence type: mixed stress and urge incontinence Family history of breast cancer Z80.3 Menopause Z78.0 Seasonal allergies J30.2 Onychomycosis B35.1 Hyperlipidemia, unspecified hyperlipidemia type E78.5 Hyperlipidemia type: unspecified Multinodular thyroid E04.2 History of abnormal cervical Pap smear Z87.42 Diabetic mononeuropathy associated with type 1 diabetes mellitus E10.41 Diabetes mellitus type: type 1 Diabetes mellitus complication detail: diabetic mononeuropathy Additional Codes DEACON-7 Assessment Billing - DEACON-7 Assessment Tool: DEACON-7 Assessment 13435 ([id number]) PHQ-9 - 74098 - PHQ-9 Billing: Yes ([id number]) Assessment & Plan Assessment & Plan (1) Encounter for general adult medical examination with abnormal findings: Code(s): Z00.01 - Encounter for general adult medical examination with abnormal findings (2) MDD (major depressive disorder), recurrent episode: Code(s): F33.9 - Major depressive disorder, recurrent, unspecified Category: Medical Qualifiers: Major depression episode severity: mild Qualified Code(s): F33.0 - Major depressive disorder, recurrent, mild (3) DEACON (generalized anxiety disorder): Code(s): F41.1 - Generalized anxiety disorder Category: Medical (4) BMI 34.0-34.9,adult: Code(s): Z68.34 - Body mass index [BMI] 34.0-34.9, adult Category: Medical (5) Class 1 obesity with serious comorbidity and body mass index (BMI) of 34.0 to 34.9 in adult: Comment: W DM AND HLD Code(s): E66.811 - Obesity, class 1; Z68.34 - Body mass index [BMI] 34.0-34.9, adult Category: Medical Qualifiers: Obesity type: due to excess calories Qualified Code(s): E66.811 - Obesity, class 1; E66.09 - Other obesity due to excess calories; Z68.34 - Body mass index [BMI] 34.0-34.9, adult (6) Diabetes mellitus type 1, with complication, on terminal operations supervisor insulin pump: Comment: WITH HTN AND HLD Code(s): E10.8 - Type 1 diabetes mellitus with unspecified complications; Z96.41 - Presence of insulin pump (external) (internal) Category: Medical (7) HTN (hypertension): Code(s): I10 - Essential (primary) hypertension Category: Medical Qualifiers: Hypertension type: unspecified Qualified Code(s): I10 - Essential (primary) hypertension (8) Vitamin D deficiency: Code(s): E55.9 - Vitamin D deficiency, unspecified Category: Medical (9) Urine incontinence: Code(s): R32 - Unspecified urinary incontinence Category: Medical Qualifiers: Urinary Incontinence type: mixed stress and urge incontinence Qualified Code(s): N39.46 - Mixed incontinence (10) Family history of breast cancer: Comment: [facility] [place] Code(s): Z80.3 - Family history of malignant neoplasm of breast Category: Medical (11) Menopause: Code(s): Z78.0 - Asymptomatic menopausal state Category: Medical (12) Seasonal allergies: Code(s): J30.2 - Other seasonal allergic rhinitis Category: Medical (13) Onychomycosis: Comment: try topical tea tree oil, vicks and otc fu with podiatry Code(s): B35.1 - Tinea unguium Category: Medical (14) HLD (hyperlipidemia): Code(s): E78.5 - Hyperlipidemia, unspecified Category: Medical Qualifiers: Hyperlipidemia type: unspecified Qualified Code(s): E78.5 - Hyperlipidemia, unspecified (15) Multinodular thyroid: Code(s): E04.2 - Nontoxic multinodular goiter Category: Medical (16) History of abnormal cervical Pap smear: Comment: ASCUS, HPV + COLPO NEGATIVE 2021 Code(s): Z87.42 - Personal history of other diseases of the female genital tract Category: Medical (17) Diabetic neuropathy: Code(s): E11.40 - Type 2 diabetes mellitus with diabetic neuropathy, unspecified Category: Medical Qualifiers: Diabetes mellitus type: type 1 Diabetes mellitus complication detail: diabetic mononeuropathy Qualified Code(s): E10.41 - Type 1 diabetes mellitus with diabetic mononeuropathy Plan . Orders: Orders Vitamin D 1,25 dihydroxy Today E10.8 - Type 1 diabetes mellitus with unspecified complications, E55.9 - Vitamin D deficiency, unspecified, F33.9 - Major depressive disorder, recurrent, unspecified, I10 - Essential (primary) hypertension, Z96.41 - Presence of insulin pump (external) (internal) Lipid Panel Today E10.8 - Type 1 diabetes mellitus with unspecified complications, E55.9 - Vitamin D deficiency, unspecified, F33.9 - Major depressive disorder, recurrent, unspecified, I10 - Essential (primary) hypertension, Z96.41 - Presence of insulin pump (external) (internal) TSH reflex Free T4 Today E10.8 - Type 1 diabetes mellitus with unspecified complications, E55.9 - Vitamin D deficiency, unspecified, F33.9 - Major depressive disorder, recurrent, unspecified, I10 - Essential (primary) hypertension, Z96.41 - Presence of insulin pump (external) (internal) Vitamin B12 and Folate Today E10.8 - Type 1 diabetes mellitus with unspecified complications, E55.9 - Vitamin D deficiency, unspecified, F33.9 - Major depressive disorder, recurrent, unspecified, I10 - Essential (primary) hypertension, Z96.41 - Presence of insulin pump (external) (internal) XR DEXA axial skeleton Today Z13.820 - Encounter for screening for osteoporosis, Z78.0 - Asymptomatic menopausal state Referrals Urology Referral R32 - Unspecified urinary incontinence Patient Instructions: Walk-In Care (Urgent Care): We Make it Easy Walk-in for urgent medical issues such as: ? Seasonal Allergies ? Insect Bites ? Cough ? Diarrhea ? Acute Asthma Attacks ? Back, Knee or Joint Pain ? Ear Infection ? Fever without a Rash ? Headaches ? Nausea ? [place] Eye, Rash or Skin Irritation ? Sore Throat ? Sports Physicals ? Vomiting Most insurances are accepted. Patients do not need to be part of the [facility] to seek care at the walk-in clinic. Locations [address] [facility] , [place] [address] ? [phone] [facility] in [place] provides services to ages 18 and over. Open Monday-Monday: 8 a.m. to 5 p.m. and Monday: 9 a.m. to 3 p.m.* *Hours may vary due to staffing availability. To confirm Walk-In Care hours in [place], please call [phone]. [address] [place] [address] ? [phone] [facility] in [place] provides services to ages 12 and over. Open Monday-Monday: 8 a.m. to 5 p.m. Hours may vary due to staffing availability. To confirm Walk-In Care hours in [place], please call [phone]. LABORATORY SERVICES: [facility] [place] Primary Location [address] [place] [address] Monday through Monday 6:00 AM ? 5:00 PM Monday 7:00 AM ? 11:00 AM* [phone] The [facility] is centrally located near the front entrance of the [facility] for easy outpatient access. Convenient parking is provided for outpatients. *Hours may vary due to staffing availability. To confirm Laboratory hours for any location, please call [phone]. Offsite Location For your convenience, we offer offsite laboratory draw stations at the following locations: [address] [place] [address] ? [facility] [address], [address], [place] Monday through Monday 7:30 AM ? 1:00 PM* [phone] *Hours may vary due to staffing availability. To confirm Laboratory hours for any location, please call [phone]. [place] ? [facility] [address] [facility], [place] Monday through Monday 6:00 AM ? 3:30 PM* Monday 6:30 AM ? 3 PM* [phone] *Hours may vary due to staffing availability. To confirm Laboratory hours for any location, please call [phone]. [address] [facility] Monday through Monday 7:30 AM ? 4:00 PM* [phone] *Hours may vary due to staffing availability. To confirm Laboratory hours for any location, please call [phone] [place] [address] Monday through 9:00 AM ? 4:00 PM* *Hours may vary due to staffing availability. To confirm Laboratory hours for any location, please call [phone]. Appointments are not necessary. Walk-ins are welcome. Like all the departments throughout the [facility], our Lab undergoes frequent reviews to ensure the quality and accuracy of test results, and our staff takes special pride in its status as a nationally accredited facility. Patient Portal: ONE PATIENT. ONE RECORD. BETTER CARE. [facility] has a fully integrated, cutting-edge mobile electronic health information system that has revolutionized the way we care for our patients and manage our organization. This system improves communication and coordination enabling us to provide safe, higher-quality care, and an overall positive experience for staff and patients. Our first priority, as always, is to deliver the highest quality care possible. The system is running in the background supporting that priority. This portal is for all [facility] services and practices. If you are experiencing any technical difficulties with enrolling or logging into the Patient Portal please complete the [facility] [place] Technical Support Form. [facility] and [facility] now offers a new secure on-line interactive tool for patients to review their health information ? ?Patient Portal. This interactive web portal will enable patients and their families to take an active role in their care by providing easy, secure access to their health information via the internet. The Patient Portal provides patients with instant access to their health information, including laboratory results, medications, allergies, demographic information, visit history, and more. In addition to managing their own care, parents and health care proxies with authorized consent will appreciate the ability to access the records of those individuals for whom they provide care. Please note: if you wish to gain access (Proxy) to another patient?s portal, you will be required to come to the Medical Records Department in person at [facility]. Both the patient giving proxy access and the proxy will need to provide photo identification and complete the appropriate authorization. The Patient Portal also allows track their appointments online. The [facility] [place] also saves patients time by allowing them to submit updates to their demographic and contact information prior to their visits. Portal email notifications will also alert patients to any new activity on their portal, such as test results and new appointments. In order to initially enroll in the [facility] [place], you will need to enter some required information including the following: your [facility] [place] number your personal home email address name date of Please note: In order to enroll in the [facility] Patient [place], we need to have your email address on file in your electronic medical record. ?The email address needs to be specific for one person (yourself) in order for your Portal enrollment to be successful. ?You can update your email address in person with our Registration staff when you are registering for a hospital visit. ?Otherwise, you will need to come to the Health Information Management (Medical Records) Department at [facility]. ?We are open from Monday ? Monday from 7:30 a.m. ? 4:30 p.m. ?You will be required to present a photo id. Once you have successfully enrolled in the Patient Portal, you will receive a one-time user id and password for the Portal, sent to your email address. ?This will allow you to log into the Patient Portal within 99 hrs and reset your own logon id and password, and define personal security questions. ?Once your permanent login and password have been set, you can log into the [facility] [place] at any time via the blue button above or from the Portal Logon button on any page of the [facility] website. [facility] and [facility] encourage all of our patients to enroll in Patient Portal as it presents a valuable opportunity for patients and their families to actively participate in their care and stay healthy Welcome to [facility]. ?We look forward to working with you. Health screenings for women You should visit your health care provider from time to time, even if you are healthy. The purpose of these visits is to: Screen for medical issues Assess your risk for future medical problems Encourage a healthy lifestyle Update vaccinations and other preventive care services Help you get to know your provider in case of an illness Information Even if you feel fine, you should still see your provider for regular checkups. These visits can help you avoid problems in the future. For example, the only way to find out if you have high blood pressure is to have it checked regularly. High blood sugar and high cholesterol levels also may not have any symptoms in the early stages. A simple blood test can check for these conditions. There are specific times when you should see your provider or receive specific health screenings. The [place] Preventive Services Task Force publishes a list of recommended screenings. Below are screening guidelines for women ages 18 to 39. BLOOD PRESSURE SCREENING Your blood pressure should be checked at least once every 3 to 5 years if: Your blood pressure is in the normal range (top number less than 120 mm Hg and bottom number less than 80 mm Hg) You don't have risk factors for high blood pressure Ask your provider if you need your blood pressure checked more often if: The top number is 120 to 129 mm Hg or the bottom number is 70 to 79 mm Hg You have diabetes, heart disease, kidney problems, are overweight, or have certain other health conditions You have a first-degree relative with high blood pressure You are Black You had high blood pressure during a If the top number is 130 mm Hg or greater or the bottom number is 80 mm Hg or greater, this is considered stage 1 hypertension. Schedule an appointment with your provider to learn how you can reduce your blood pressure. Watch for blood pressure screenings in your area. Ask your provider if you can stop in to have your blood pressure checked. BREAST CANCER SCREENING Experts do not agree about the benefits of breast self-exams in finding breast cancer or saving lives. Talk to your provider about what is best for you. A screening mammogram is not recommended for most women under age 40. Your provider may discuss and recommend mammograms, MRI scans, or ultrasounds if you have an increased risk for breast cancer, such as: A mother or sister who had breast cancer at a young age (most often starting screening earlier than the age the close relative was diagnosed) You carry a high-risk genetic marker CERVICAL CANCER SCREENING Cervical cancer screening should start at age 21 years unless your provider advises otherwise. After the first test: Women ages 21 through 29 should have a Pap test every 3 years. Exoprts do not agree on whether HPV testing is recommended for this age group. Women ages 30 through 65 should be screened with either a Pap test every 3 years or the HPV test every 5 years or both tests every 5 years (called cotesting ). Women who have been treated for precancer (cervical dysplasia) should continue to have Pap tests for 20 years after treatment or until age 65, whichever is longer. If you have had your uterus and cervix removed (total hysterectomy), and you have not been diagnosed with cervical cancer or precancer (high grade cervical neoplasia), you do not need cervical cancer screening. CHOLESTEROL SCREENING Cholesterol screening should begin at: Age 45 for women with no known risk factors for coronary heart disease Age 20 for women with known risk factors for coronary heart disease Repeat cholesterol screening should take place: Every 5 years for women with normal cholesterol levels More often if changes occur in lifestyle (including weight gain and diet) More often if you have diabetes, heart disease, kidney problems, or certain other conditions DIABETES SCREENING You should be screened for diabetes starting at age 35 and then repeated every 3 years if you have no risk factors for diabetes. Screening may need to start earlier and be repeated more often if you have other risk factors for diabetes, such as: You have a first degree relative with diabetes. You are overweight or have obesity. You have high blood pressure, prediabetes, or a history of heart disease. Screening for diabetes should be done if you are planning to become and you are overweight and have other risk factors such as high blood pressure. DENTAL EXAM Go to the dentist once or twice every year for an exam and cleaning. Your dentist will evaluate if you need more frequent visits. EYE EXAM Have an eye exam every 5 to 10 years before age 40. If you have vision problems, have an eye exam every 2 years or more often if recommended by your provider. You should have an eye exam that includes an examination of your retina (back of your eye) at least every year if you have diabetes. IMMUNIZATIONS Commonly needed vaccines include: Flu shot: get one every year. COVID-19 vaccine: ask your provider what is best for you. Tetanus-diphtheria and acellular pertussis (Tdap) vaccine: have one at or after age 19 as one of your tetanus-diphtheria vaccines if you did not receive it as an adolescent. Tetanus-diphtheria: have a booster (or Tdap) every 10 years. Varicella vaccine: receive 2 doses if you never had chickenpox or the varicella vaccine. Hepatitis B vaccine: receive 2, 3, or 4 doses, depending on your exact circumstances. Measles, mumps, and rubella (MMR) vaccine: receive 1 to 2 doses if you are not already immune to MMR. Your provider can tell you if you are immune. Ask your provider about the human papillomavirus (HPV) vaccine if: You have not received the HPV vaccine in the past You have not completed the full vaccine series (you should catch up on this shot) Ask your provider if you should receive other immunizations if you have certain health problems that increase your risk for some diseases such as pneumonia. INFECTIOUS DISEASE SCREENING Women who are sexually active should be screened for chlamydia and gonorrhea up until age 25. Women 25 years and older should be screened for chlamydia and gonorrhea if at high risk. Screening for hepatitis C: All adults ages 18 to 79 should get a one-time test for hepatitis C. people should be screened at every . Screening for human immunodeficiency virus (HIV): All people ages 15 to 65 should get a one-time test for HIV. Depending on your lifestyle and medical history, you may also need to be screened for infections such as syphilis and HIV, as well as other infections. PHYSICAL EXAM All adults should visit their provider from time to time, even if they are healthy. The purpose of these visits is to: Screen for disease Assess your risk of future medical problems Encourage a healthy lifestyle Update your vaccinations and other preventive care services Maintain a relationship with a provider in case of an illness Your height, weight, and BMI should be checked at every exam. During your exam, your provider may ask you about: Depression and anxiety Diet and exercise Alcohol and tobacco use Safety issues, such as using seat belts, smoke detectors, and intimate partner violence Your medicines and risk for interactions SKIN SELF-EXAM Your provider may check your skin for signs of skin cancer, especially if you're at high risk, such as if you: Have had skin cancer before Have close relatives with skin cancer Have a weakened immune system OTHER SCREENING Talk with your provider about colon cancer screening if you have a strong family history of colon cancer or polyps, or if you have had inflammatory bowel disease or polyps yourself. Routine bone density screening of women under 40 is not recommended.
[2024-06-26 08:38] VITALS: BP 122/70; PULSE 70; RESP 12; TEMP 36.2; O2SAT 97; BMI 34.5
--- OUTSIDE RECORDS SUMMARY | 2024-06-26 09:02 | XMS_ITS | Encounter Summary ---
Author Organization [facility] Address [address] [place] [address] Care Team Providers Care Aeronautics Teacher Name Role Phone Major Rosario MD Primary Care Provider Unavailab le Reason for Visit * Reason Onset Date Comments Medication 09/07/2023 Encounter Details Date Type Department Care Team Description 09/07/2023 Refill Gastroenterology - [place] 175 [facility] [address] [place] [id number] Fredrick Rodriguez DO 175 [facility] 200 [facility] [place] [address] Medication Social History Tobacco Use Types Packs/Day [...] on filedocumented in this encounter Care Teams Aeronautics Teacher Relationship Specialty Start Date End Date Major Rosario MD PCP - General Internal Medicine 09/05/19 documented as of this encounter
--- OUTSIDE RECORDS SUMMARY | 2024-06-26 09:02 | XMS_ITS | Clinical Summary ---
Author Organization [facility] Address [address] [place] [address] Care Team Providers Care Irrigator Name Role Phone Major Rosario MD Primary [...] for Nausea. 60 Tab 6 06/25/2019 Active WY-ACID GAS RELIEF 80 MG chewable tablet CHEW [...] CANCER SCREENING 09/17/2033 09/18/2023, 2017 Care Teams Irrigator Relationship Specialty Start Date End Date Major Rosario MD PCP - General Internal Medicine 09/05/19
--- OUTSIDE RECORDS SUMMARY | 2024-06-26 09:02 | XMS_ITS | Encounter Summary ---
Author Organization [facility] Address [address] [place] [address] Care Team Providers Care Want Ad Supervisor Name Role Phone Major Rosario MD Primary Care Provider Hyun nick Encounter Details Date Type Department Care Team Description 10/02/2019 Refill Adult Medicine [address] [address] Major Rosario MD Social History Tobacco Use [...] Diclofenac and dicylomine Preferred pharmacy: [id number] - [place], [place] - [address] [facility] documented in this encounter Plan of Treatment Not on file documented as of this encounter Visit Diagnoses Not on filedocumented in this encounter Care Teams Want Ad Supervisor Relationship Specialty Start Date End Date Major Rosario MD PCP - General Internal Medicine 09/05/19 documented as of this encounter
--- OUTSIDE RECORDS SUMMARY | 2024-06-26 09:02 | XMS_ITS | Encounter Summary ---
Author Organization [facility] Address [address] [place] [address] Care Team Providers Care Host/Hostess Restaurant Name Role Phone Community, Pcp Primary Care Provider Aye Zepeda Primary Care Provider Major Alatorre MD Primary Care Provider Sacha Mack MD Primary Care Provider Major Grayson MD Primary Care Provider Huyn nick Encounter Details Date Type Department Care Team Description 11/13/2018 Supervisor Riveting Report Medical Records [address] [place] [id number] Major Rosario MD Social History Tobacco Use [...] on filedocumented in this encounter Care Teams Host/Hostess Restaurant Relationship Specialty Start Date End Date [facility], Pcp PCP - General Internal Medicine 08/31/17 01/09/19 Aye Tenorio PCP - General Geriatrics 01/10/19 03/25/19 Major Rosario MD PCP - General Internal Medicine 03/26/19 07/14/19 Sacha Alegre MD PCP - General Internal Medicine 07/15/19 09/04/19 Major Rosario MD PCP - General Internal Medicine 09/05/19 documented as of this encounter
--- OUTSIDE RECORDS SUMMARY | 2024-06-26 09:02 | XMS_ITS | Encounter Summary ---
Author Organization [facility] Address [address] [place] [address] Care Team Providers Care Family Consultant Name Role Phone Sacha Alegre MD Primary Care Provider Major Grayson MD Primary Care Provider Unavailab le Reason for Visit * Reason Comments E-prescribe Rx Request Encounter Details Date Type Department Care Team Description 07/22/2019 Refill Gastroenterology - [place] [address] [phone] Hugh Corrigan PA-C [address] [address] E-prescribe Rx Request Social History Tobacco Use Types Packs/Day Years Used Date Smoking Tobacco: Former Cigarettes Q uit: 09/10/2007 Smokeless Tobacco: Never Alcohol Use Standard Drinks/Week Comments No 0 (1 standard drink = 0.6 oz pur e alcohol) Sex Assigned at Date Recorded Not on file documented as of this encounter Miscellaneous Notes * Telephone Encounter - Hugh Corrigan PA-C - 07/23/2019 8:06 AM EDT All set documented in this encounter Plan of Treatment Not on file documented as of this encounter Visit Diagnoses Not on filedocumented in this encounter Care Teams Family Consultant Relationship Specialty Start Date End Date Sacha Alegre MD PCP - General Internal Medicine 07/15/19 09/04/19 Major Rosario MD PCP - General Internal Medicine 09/05/19 documented as of this encounter
--- OUTSIDE RECORDS SUMMARY | 2024-06-26 09:02 | XMS_ITS | Encounter Summary ---
Author Organization [facility] Address [address] [place] [address] Care Team Providers Care Contract Post Office Clerk Name Role Phone Major Rosario MD Primary Care Provider Hyun nick Encounter Details Date Type Department Care Team Description 09/20/2023 Orders Only Medical Records [address] [place] [address] Fredrick Rodriguez DO 175 [facility] 200 [facility] [place] [address] Social History Tobacco Use Types Packs/Day Years [...] on filedocumented in this encounter Care Teams Contract Post Office Clerk Relationship Specialty Start Date End Date Major Rosario MD PCP - General Internal Medicine 09/05/19 documented as of this encounter
--- OUTSIDE RECORDS SUMMARY | 2024-06-26 09:03 | XMS_ITS | Encounter Summary ---
Author Organization [facility] Address [address] [place] [address] Care Team Providers Care Bilingual Customer Service Name Role Phone Rolly Bulter MD Primary Care Provider Unavail able B[place], Pcp Primary Care Provider Aye Zepeda Primary Care Provider UnavailMajor Huitron MD Primary Care Provider Unavailab Sacha Peraza MD Primary Care Provider Major Grayson MD Primary Care Provider Hyun nick Encounter Details Date Type Department Care Team Description 07/25/2008 Old Medical Records Medical Records [address] [place] [id number] Abstract, Provider Social History Tobacco Use Types Packs/Day Years Used Date Smoking Tobacco: Never Assessed Sex Assigned at Date Recorded Not on file documented as of this encounter Plan of Treatment Not on file documented as of this encounter Visit Diagnoses Not on filedocumented in this encounter Care Teams Bilingual Customer Service Relationship Specialty Start Date End Date Rolly [...]
--- OUTSIDE RECORDS SUMMARY | 2024-06-26 09:03 | XMS_ITS | Encounter Summary ---
Author Organization [facility] Address [address] [place] [address] Care Team Providers Care Electroplating Technician Name Role Phone Major Rosario MD Primary Care Provider Sacha Mack MD Primary Care Provider Major Grayson MD Primary Care Provider Hyun nick Encounter Details Date Type Department Care Team Description 03/29/2019 Transfer Records Medical Records [address] [place] [address] Abstract, Provider Social History Tobacco Use Types [...] on filedocumented in this encounter Care Teams Electroplating Technician Relationship Specialty Start Date End Date Major Rosario MD PCP - General Internal Medicine 03/26/19 07/14/19 Sacha Alegre MD PCP - General Internal Medicine 07/15/19 09/04/19 Major Rosario MD PCP - General Internal Medicine 09/05/19 documented as of this encounter
--- OUTSIDE RECORDS SUMMARY | 2024-06-26 09:03 | XMS_ITS | Encounter Summary ---
Author Organization [facility] Address [address] [place] [address] Care Team Providers Care Inventory Control Clerk Name Role Phone Aye Tenorio Primary Care Provider Major Alatorre MD Primary Care Provider Sacha Mack MD Primary Care Provider Major Grayson MD Primary Care Provider Hyun nick Encounter Details Date Type Department Care Team Description 02/28/2019 Faculty Neuropsychologist Report Medical Records [address] [place] [id number] Major Rosario MD Social History Tobacco Use [...] on filedocumented in this encounter Care Teams Inventory Control Clerk Relationship Specialty Start Date End Date Aye Tenorio PCP - General Geriatrics 01/10/19 03/25/19 Major Rosario MD PCP - General Internal Medicine 03/26/19 07/14/19 Sacha Alegre MD PCP - General Internal Medicine 07/15/19 09/04/19 Major Rosario MD PCP - General Internal Medicine 09/05/19 documented as of this encounter
== END 2024-06-26 09:08 | disposition home or self-care (01) ==
LOC: HO.HMCFM 08:24
PROVIDERS: PCP Nurse Practitioner Family; Visit Provider Nurse Practitioner Family
DX: Z00.01 Encounter for general adult medical examination with abnormal findings (principal); E10.8 Type 1 diabetes mellitus with unspecified complications; E10.41 Type 1 diabetes mellitus with diabetic mononeuropathy; F33.0 Major depressive disorder, recurrent, mild; E66.811 Obesity, class 1; Z68.34 Body mass index [BMI] 34.0-34.9, adult; F41.1 Generalized anxiety disorder; E66.09 Other obesity due to excess calories; Z96.41 Presence of insulin pump (external) (internal); I10 Essential (primary) hypertension; E55.9 Vitamin D deficiency, unspecified; N39.46 Mixed incontinence

== ENCOUNTER → 2024-06-26 08:23 | Outpatient (BNVA) | payer OTHER, SELFPAY | PROVIDERS: PCP Nurse Practitioner Family; Visit Provider Nurse Practitioner Family | DX: Z00.01 Encounter for general adult medical examination with abnormal findings (principal); F33.0 Major depressive disorder, recurrent, mild; F41.1 Generalized anxiety disorder; E66.09 Other obesity due to excess calories; Z68.34 Body mass index [BMI] 34.0-34.9, adult; E10.41 Type 1 diabetes mellitus with diabetic mononeuropathy; I10 Essential (primary) hypertension; E55.9 Vitamin D deficiency, unspecified; N39.46 Mixed incontinence; J30.2 Other seasonal allergic rhinitis; B35.1 Tinea unguium; E04.2 Nontoxic multinodular goiter; Z87.42 Personal history of other diseases of the female genital tract; Z78.0 Asymptomatic menopausal state; Z71.3 Dietary counseling and surveillance; Z71.6 Tobacco abuse counseling; Z87.891 Personal history of nicotine dependence | CPT/HCPCS: 96127; 99212; 99386 ==

== ENCOUNTER 2024-06-26 09:13 | Outpatient (REF) | payer OTHER, SELFPAY ==
[2024-06-26 11:40] LABS: Anion Gap 10 (12-20); Blood Urea Nitrogen 13 mg/dL (9-16); Calcium 8.9 mg/dL (8.4-10.2); Carbon Dioxide 27 mmol/L (22-29); Chloride 107 mmol/L (96-108); Cholesterol 134 mg/dL (<200); Estimated Glomerular Filt Rate > 60; Glucose Random 209 mg/dL (60-115); HDL Cholesterol 48 mg/dL (>40); LDL Cholesterol Calculated 72 mg/dL (<100); Potassium 4.2 mmol/L (3.3-5.1); Sodium 140 mmol/L (135-145); Triglycerides 74 mg/dL (<150)
[2024-06-26 12:02] LABS: TSH reflex Free T4 0.71 uIU/mL (0.32-4.0)
[2024-06-26 12:12] LABS: Creatinine Urine 95.33 mg/dL; Microalbumin Urine < 5.0 mg/L
[2024-06-26 12:15] LABS: Folate 5.6 ng/mL (> or = 4.0); Vitamin B12 235 pg/mL (200-900)
[2024-06-30 14:39] LABS: VITAMIN D (1,25 OH) D3 21 pg/mL; Vit D (1,25-Dihydroxy) Total 21 pg/mL (18-72); Vitamin D (1,25 OH) D2 <8 pg/mL
== END 2024-06-26 09:14 | disposition home or self-care (01) ==
LOC: HO.WFDLDS 09:13
PROVIDERS: Nurse Practitioner Adult Health; Referring Provider Nurse Practitioner Family; Visit Provider Nurse Practitioner Family
DX: E10.65 Type 1 diabetes mellitus with hyperglycemia (principal); E10.8 Type 1 diabetes mellitus with unspecified complications; Z96.41 Presence of insulin pump (external) (internal); I10 Essential (primary) hypertension; F33.9 Major depressive disorder, recurrent, unspecified; E55.9 Vitamin D deficiency, unspecified
CPT/HCPCS: 36415; 80048; 80061; 82043; 82570; 82607; 82652; 82746; 84443

== ENCOUNTER 2024-07-26 08:56 | Outpatient (REF) | payer OTHER, SELFPAY ==
--- NOTE | ~2024-07-26 | MM_ITS ---
EXAMINATION: DXA BONE DENSITY AXIAL HISTORY: Z13.820 - Encounter for screening for osteoporosis TECHNIQUE: Labtiva Dual energy absorptiometry (DEXA) of the lumbar spine, total left hip, and femoral neck was performed. COMPARISON: There are no prior studies for comparison. FINDINGS: The bone mineral density of the lumbar spine is 1.240 with a T-score of 0.5, and a Z-score of 0.2. This is indicative of normal bone mineral density. The bone mineral density of the left total hip is 0.980 with a T-score of -0.2, and a Z-score of -0.3. This is indicative of normal bone mineral density. The bone mineral density of the left femoral neck is 0.929 with a T-score of -0.8, and a Z-score of -0.5. This is indicative of normal bone mineral density. FRACTURE RISK: The FRAX index suggests a risk of major osteoporotic fracture of 4.5%, and of hip fracture 0.2%. MM/XR DEXA axial skeleton IMPRESSION: Based on bone mineral density, and according to World Health Organization (WHO) criteria, the diagnosis is consistent with normal bone mineral density. All bone density values are in grams per centimeter squared (g/cm2). Statistically, 68% of repeat scans fall within 1 SD (+/- 0.010 g/cm2 for AP spine L1-L4) and 1 SD (+/- 0.012 g/cm2 for femur total) FRAX is a trademark of the [employer]'s [employer] Metabolic Bone Disease, a World Health Organization (WHO) Collaborating Center. Electronically signed by: Deng Santana MD 07/26/2024 09:46 AM EDT
--- OUTSIDE RECORDS SUMMARY | 2024-07-26 09:21 | XMS_ITS | Encounter Summary ---
Author Organization [facility] Address [address] [place] [address] Care Team Providers Care Statement Processor Name Role Phone Major Rosario MD Primary Care Provider Sacha Mack MD Primary Care Provider Major Grayson MD Primary Care Provider Hyun nick Encounter Details Date Type Department Care Team Description 03/29/2019 Release of Information Medical Records [address] [place] [id number] Abstract, Provider Social History Tobacco Use Types [...] on filedocumented in this encounter Care Teams Statement Processor Relationship Specialty Start Date End Date Major Rosario MD PCP - General Internal Medicine 03/26/19 07/14/19 Sacha Alegre MD PCP - General Internal Medicine 07/15/19 09/04/19 Major Rosario MD PCP - General Internal Medicine 09/05/19 documented as of this encounter
--- OUTSIDE RECORDS SUMMARY | 2024-07-26 09:21 | XMS_ITS | Encounter Summary ---
Author Organization [facility] Address [address] [place] [address] Care Team Providers Care Condemnation Engineer Name Role Phone Major Rosario MD Primary Care Provider Unavailab le Reason for Visit * Reason Onset Date Comments Medication 09/07/2023 Encounter Details Date Type Department Care Team Description 09/07/2023 Refill Gastroenterology - [place] [address] [facility] [address] [place] [address] Jalyn Navarro MD [address] [place] [address] Medication Social History Tobacco Use Types Packs/Day [...] on filedocumented in this encounter Care Teams Condemnation Engineer Relationship Specialty Start Date End Date Major Rosario MD PCP - General Internal Medicine 09/05/19 documented as of this encounter
--- OUTSIDE RECORDS SUMMARY | 2024-07-26 09:21 | XMS_ITS | Encounter Summary ---
Author Organization [facility] Address [address] [place] [address] Care Team Providers Care Technical Documentation Specialist Name Role Phone Major Rosario MD Primary Care Provider Hyun nick Encounter Details Date Type Department Care Team Description 10/02/2019 Refill Adult Medicine [address] [address] Major Rosario MD Social History Tobacco Use [...] Diclofenac and dicylomine Preferred pharmacy: [id number] - [place], [place] - [address] [facility] documented in this encounter Plan of Treatment Not on file documented as of this encounter Visit Diagnoses Not on filedocumented in this encounter Care Teams Technical Documentation Specialist Relationship Specialty Start Date End Date Major Rosario MD PCP - General Internal Medicine 09/05/19 documented as of this encounter
--- OUTSIDE RECORDS SUMMARY | 2024-07-26 09:21 | XMS_ITS | Encounter Summary ---
Author Organization [facility] Address [address] [place] [address] Care Team Providers Care Credit Control Clerk Name Role Phone Community, Pcp Primary Care Provider Aye Zepeda Primary Care Provider Major Alatorre MD Primary Care Provider Sacha Mack MD Primary Care Provider Major Grayson MD Primary Care Provider Hyun nick Encounter Details Date Type Department Care Team Description 11/21/2018 Old Medical Records Medical Records [address] [place] [id number] Abstract, Provider Social History Tobacco Use Types [...] on filedocumented in this encounter Care Teams Credit Control Clerk Relationship Specialty Start Date End Date [facility], Pcp PCP - General Internal Medicine 08/31/17 01/09/19 Aye Tenorio PCP - General Geriatrics 01/10/19 03/25/19 Major Rosario MD PCP - General Internal Medicine 03/26/19 07/14/19 Sacha Alegre MD PCP - General Internal Medicine 07/15/19 09/04/19 Major Rosario MD PCP - General Internal Medicine 09/05/19 documented as of this encounter
--- OUTSIDE RECORDS SUMMARY | 2024-07-26 09:21 | XMS_ITS | Encounter Summary ---
Author Organization [facility] Address [address] [place] [address] Care Team Providers Care Car Cleaning Supervisor Name Role Phone Major Rosario MD Primary Care Provider Hyun nick Encounter Details Date Type Department Care Team Description 07/04/2023 Telephone Gastroenterology - [place] 175 [facility] [address] [place] [id number] Hugh Corrigan PA-C 175 [facility] [address] [place] [address] Social History Tobacco Use Types Packs/Day Years Used Date Smoking Tobacco: Former Cigarettes Q uit: 09/10/2007 Smokeless Tobacco: Never Alcohol Use Standard Drinks/Week Comments No 0 (1 standard drink = 0.6 oz pur e alcohol) Sex Assigned at Date Recorded Not on file documented as of this encounter Miscellaneous Notes * Telephone Encounter - Crystal Rios - 07/04/2023 1:26 PM EDT Booked Barium Swallow at [address] [place] [address] for patient on September 12 at 8:15am w/ arrival at 8am. Called the patient to notify of appointment details, including nothing to eat/drink after midnight. I also mailed an appointment letter. Order has been faxed to [phone]. documented in this encounter Plan of Treatment Not on file documented as of this encounter Visit Diagnoses Not on filedocumented in this encounter Care Teams Car Cleaning Supervisor Relationship Specialty Start Date End Date Major Rosario MD PCP - General Internal Medicine 09/05/19 documented as of this encounter
--- OUTSIDE RECORDS SUMMARY | 2024-07-26 09:21 | XMS_ITS | Encounter Summary ---
Author Organization [facility] Address [address] [place] [address] Care Team Providers Care Sld Inclusion Teacher Name Role Phone Sacha Alegre MD Primary Care Provider Major Grayson MD Primary Care Provider Unavailab le Reason for Visit * Reason Comments E-prescribe Rx Request Encounter Details Date Type Department Care Team Description 07/22/2019 Refill Gastroenterology - [place] [address] [phone] Hugh Corrigan PA-C [address] [id number] E-prescribe Rx Request Social History Tobacco Use [...] on filedocumented in this encounter Care Teams Sld Inclusion Teacher Relationship Specialty Start Date End Date Sacha Alegre MD PCP - General Internal Medicine 07/15/19 09/04/19 Major Rosario MD PCP - General Internal Medicine 09/05/19 documented as of this encounter
--- OUTSIDE RECORDS SUMMARY | 2024-07-26 09:21 | XMS_ITS | Encounter Summary ---
Author Organization [facility] Address [address] [place] [address] Care Team Providers Care Sales Agent Financial Report Service Name Role Phone Sacha Alegre MD Primary Care Provider Major Grayson MD Primary Care Provider Hyun nick Encounter Details Date Type Department Care Team Description 07/15/2019 SCAN Medical Records [address] [place] [id number] Abstract, Provider Social History Tobacco Use Types [...] on filedocumented in this encounter Care Teams Sales Agent Financial Report Service Relationship Specialty Start Date End Date Sacha Alegre MD PCP - General Internal Medicine 07/15/19 09/04/19 Major Rosario MD PCP - General Internal Medicine 09/05/19 documented as of this encounter
--- OUTSIDE RECORDS SUMMARY | 2024-07-26 09:21 | XMS_ITS | Encounter Summary ---
Author Organization [facility] Address [address] [place] [address] Care Team Providers Care Front End Driver Name Role Phone Major Rosario MD Primary Care Provider Hyun nick Encounter Details Date Type Department Care Team Description 09/18/2023 Hospital Medical Records [address] [place] [address] Fredrick Rodriguez, DO 175 [facility] [address] [facility] [place] [address] Social History Tobacco Use Types Packs/Day Years [...] on filedocumented in this encounter Care Teams Front End Driver Relationship Specialty Start Date End Date Major Rosario MD PCP - General Internal Medicine 09/05/19 documented as of this encounter
--- OUTSIDE RECORDS SUMMARY | 2024-07-26 09:21 | XMS_ITS | Encounter Summary ---
Author Organization [facility] Address [address] [place] [address] Care Team Providers Care Arcade Games Mechanic Name Role Phone Major Rosario MD Primary Care Provider Hyun nick Encounter Details Date Type Department Care Team Description 07/04/2023 Transfer Records Medical Records [address] [place] [id number] Abstract, Provider Social History Tobacco Use Types [...] on filedocumented in this encounter Care Teams Arcade Games Mechanic Relationship Specialty Start Date End Date Major Rosario MD PCP - General Internal Medicine 09/05/19 documented as of this encounter
--- OUTSIDE RECORDS SUMMARY | 2024-07-26 09:21 | XMS_ITS | Encounter Summary ---
Author Organization [facility] Address [address] [place] [address] Care Team Providers Care Telephonic Case Manager Name Role Phone Major Rosario MD Primary Care Provider Hyun nick Encounter Details Date Type Department Care Team Description 09/20/2023 Orders Only Medical Records [address] [place] [address] Fredrick Rodriguez DO [address] [facility] 200 [facility] [place] [address] Social History Tobacco Use Types Packs/Day Years [...] on filedocumented in this encounter Care Teams Telephonic Case Manager Relationship Specialty Start Date End Date Major Rosario MD PCP - General Internal Medicine 09/05/19 documented as of this encounter
--- OUTSIDE RECORDS SUMMARY | 2024-07-26 09:21 | XMS_ITS | Encounter Summary ---
Author Organization [facility] Address [address] [place] [address] Care Team Providers Care Medical Staffing Coordinator Name Role Phone Rolly Butler MD Primary Care Provider Unavail able Bala, Pcp Primary Care Provider Aye Zepeda Primary Care Provider UnavailMajor Huitron MD Primary Care Provider Unavailab Sacha Peraza MD Primary Care Provider Major Grayson MD Primary Care Provider Hyun nick Encounter Details Date Type Department Care Team Description 07/25/2008 Old Medical Records Medical Records [address] [place] [id number] Abstract, Provider Social History Tobacco Use Types Packs/Day Years Used Date Smoking Tobacco: Never Assessed Sex Assigned at Date Recorded Not on file documented as of this encounter Plan of Treatment Not on file documented as of this encounter Visit Diagnoses Not on filedocumented in this encounter Care Teams Medical Staffing Coordinator Relationship Specialty Start Date End Date Rolly [...]
== END 2024-07-26 08:57 | disposition home or self-care (01) ==
LOC: HO.MAMMO 08:56
PROVIDERS: Visit Provider Nurse Practitioner Family
DX: Z13.820 Encounter for screening for osteoporosis (principal); Z78.0 Asymptomatic menopausal state
CPT/HCPCS: 77080

== ENCOUNTER → 2024-07-26 09:15 | Outpatient (BNV) | payer OTHER, SELFPAY | PROVIDERS: Visit Provider Radiology Diagnostic Radiology | DX: E28.39 Other primary ovarian failure (principal) | CPT/HCPCS: 77080 ==

== ENCOUNTER 2024-08-29 08:59 | Outpatient (REF) | payer OTHER, SELFPAY ==
[2024-08-29 16:09] LABS: Urine Cytology See Pathology rpt
== END 2024-08-29 09:00 | disposition home or self-care (01) ==
LOC: HO.LNP 08:59
PROVIDERS: PCP Nurse Practitioner Family; Visit Provider Nurse Practitioner Family
DX: N39.46 Mixed incontinence (principal); R31.29 Other microscopic hematuria; Z87.891 Personal history of nicotine dependence; E10.65 Type 1 diabetes mellitus with hyperglycemia
CPT/HCPCS: 51798; 81003; 82947; 87086; 88112; 99202; 99212

== ENCOUNTER 2024-08-29 08:59 | Outpatient (AMB) | payer OTHER, SELFPAY ==
--- NOTE | 2024-08-29 09:06 | A.OFFVIS_ITS ---
Intake Visit Reasons: Unspecified urinary incontinence Intake Note: New Patient presents for initial visit for urinary incontinence Urology Medications: none Blood Thinner: none PVR: 18ml's Double Cut Sawyer Required: No Accompanied by: Self / Same As Patient Allergies No Known Allergies Allergy (Verified 08/29/24 09:42) Medication List - Last Reconciled 08/29/24 by UMESH Graham acetone (urine) test (Ketone Urine Test strips) As directed prn over 250, illness, nausea, vomiting blood sugar diagnostic (FreeStyle Lite Strips) 4x daily blood-glucose meter (FreeStyle D Hanis Lite kit) As directed cholecalciferol (vitamin D3) 25 mcg PO DAILY 30 days dicyclomine 10 mg PO TID gabapentin 300 mg PO BEDTIME glucagon 3 mg/actuation (Baqsimi) 3 mg intranasal ONCE insulin glargine (Lantus Solostar U-100 Insulin) 32 units (0.32 mL) subcut QPM PRN 30 days MDD 32n units insulin lispro 80 - 90 units (0.8 - 0.9 mL) subcut DAILY insulin syringe-needle U-100 (BD Insulin Syringe Ultra-Fine) tid prn pump failure lancets (FreeStyle Lancets) 4x daily lisinopril 2.5 mg PO DAILY 30 days multivitamin (One-A-Day Essential tablet) 1 tab PO DAILY pen needle, diabetic (1st Tier Unifine Pentips Plus) As directed tid for pump failure rosuvastatin 10 mg PO DAILY 30 days sertraline 50 mg PO DAILY zinc acetate 50 mg PO DAILY HPI Comments Details: Demetria is a pleasant 53-year-old female patient of Dr. Diez. She has a past medical history of thyroid disorder, sleep disturbance, neuropath y, restless leg syndrome, IBS, hypercholesteremia, GERD, diabetic neuropathy, anxiety, depression, asthma, hyperlipidemia, hypertension, and type 1 diabetes. She presents to the office today as a new patient for urinary incontinence. In discussion with the patient today she reports noting over the last 6 months to a year she has been having episodes of white discharge that she feels is itchy and foul-smelling. She reports following up with her associate director at which time recommendations were made for urology referral for further assessment evaluation. We discussed potential for BV given patient's reported symptoms. She denies urinary urgency, urinary frequency, nocturia, hematuria, dysuria, changes to urinary stream, flank pain, fever, and or chills. In office urinalysis results reviewed with the patient today 3+ leukocytes negative nitrates, 2+ microscopic hematuria. When asked she does report a previous history of nicotine dependence approximately 20 years ago. She reports smoking 1-1-1/2 packs per day for 10 years. We discussed potential causes of microscopic hematuria as well as further workup in risks and benefits of these interventions. All questions were answered. She otherwise offers no other issues or concerns at this time. [facility] Medical History Thyroid disorder Sleep disturbance Neuropathy RLS (restless legs syndrome) IBS (irritable bowel syndrome) Hypercholesterolemia GERD (gastroesophageal reflux disease) Esophageal stricture Dysmenorrhea Diabetic neuropathy Anxiety and depression Asthma ASCUS with positive high risk HPV cervical Hx of mammogram (~12/2023) Vitamin D deficiency Multinodular thyroid HLD (hyperlipidemia) HTN (hypertension) T1DM (type 1 diabetes mellitus) Surgical History Hx of prior ablation treatment Hx of colonoscopy (~09/2023) History of ear surgery Family History Father Diabetes Mother Colonic polyp Maternal Grandmother Breast cancer Cardiovascular disease Maternal Grandfather Cardiovascular disease Social History Household Members: None Both parents involved: No Caregiver staying overnight: No Housing: Apartment Are you a primary pulmonary care nurse to a significant other at home: No Do you presently have visiting nurse or other home services: No 75 years or older and lives alone: No Alcohol intake: never Patient Tobacco Use Status: Former Tobacco user Cigarette Packs Per Day: 1 Years Smoked: 10 e-Cigarette/Vaping Use: Never Used Second Hand Smoke Exposure: No Current occupational status: employed 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 Cognitive needs: No Hearing needs: No Vision needs: Yes (wear glasses) Review of Systems Eyes Reports no additional complaints ENT Reports no additional complaints Card Reports as per HPI Resp Reports as per HPI GI Reports as per HPI Reports as per HPI Musc Reports as per HPI Neuro Reports no additional complaints Psych Reports as per HPI Endo Reports as per HPI Physical Exam Const General: cooperative, healthy appearing, comfortable, no acute distress, well developed, alert and awake Nutritional Appearance: overweight Orientation/consciousness: patient oriented x3 Limitations: no limitations HEENT Head: Yes normal to inspection, Yes normocephalic and Yes atraumatic Ears: hearing grossly normal bilaterally Eyes General: appearance normal, both eyes and all related structures Neck Neck: Yes normal visual inspection and Yes trachea midline Chest Chest palpation & inspection: normal inspection of the chest Resp Effort & Inspection: normal respiratory effort and able to speak in complete sentences Cardio Rate: regular rate GI Inspection: Yes normal to inspection General: Yes no CVA tenderness Back/Spine/Pelvis Back: no CVA tenderness Skin General skin exam: no rashes or lesions noted Neuro General: patient oriented x3 Extrem General: Yes normal to inspection Psych Appearance: grossly normal and well kempt Mental Status: mental status grossly normal Speech and movement: Normal speech and movement present and Clear speech present Affect: normal affect Attitude: cooperative Thought process: Normal thought process present Thought content: Normal thought content present Insight: Fair insight present (Psych) Judgement: Fair judgement present (Psych) Office Procedures Post Void Residual Post Residual Void Post Void Residual (PVR): 18 01805-Uxde Void Residual by ultrasound Results AMB Urinalysis, Automated UA Leukoctes 500 Juhi/uL Last Edit by Julia Huizar on 08/29/24 09:25 UA Nitrite Last Edit by Julia Huizar on 08/29/24 09:25 UA Urobilinogen 0.2 mg/dL Last Edit by Julia Huizar on 08/29/24 09:25 UA Protein 15 mg/dL Last Edit by Julia Huizar on 08/29/24 09:25 UA pH 6.0 Last Edit by Julia Huizar on 08/29/24 09:25 UA Blood 80 Andres/uL Last Edit by Julia Huizar on 08/29/24 09:25 UA Specific [place] 1.020 Last Edit by Julia Huizar on 08/29/24 09:25 UA Ketone Last Edit by Julia Huizar on 08/29/24 09:25 UA Bilirubin 0 mg/dL Last Edit by Julia Huizar on 08/29/24 09:25 UA Glucose 0 mg/dL Last Edit by Julia Huizar on 08/29/24 09:25 Results Reviewed Results Reviewed: Laboratory Last Values Urine pH (Auto) 6.0 08/29/24 09:07 Specific [place] (Auto) 1.020 08/29/24 09:07 Urine Protein (Auto) 15 mg/dL 08/29/24 09:07 Glucose (UA)(Auto) 0 mg/dL 08/29/24 09:07 Urine Blood (Auto) 80 Andres/uL 08/29/24 09:07 Urine Bilirubin (Auto) 0 mg/dL 08/29/24 09:07 Urine Urobilinogen (Auto) 0.2 mg/dL 08/29/24 09:07 Leukocyte Esterase (Auto) 500 Juhi/uL 08/29/24 09:07 Assessment & Plan Assessment & Plan (1) Urine incontinence: Code(s): R32 - Unspecified urinary incontinence Category: Medical Qualifiers: Urinary Incontinence type: mixed stress and urge incontinence Qualified Code(s): N39.46 - Mixed incontinence (2) Microscopic hematuria: Code(s): R31.29 - Other microscopic hematuria Category: Medical (3) Former smoker: Code(s): Z87.891 - Personal history of nicotine dependence Category: Social Hx Plan In office urinalysis results reviewed with the patient today; as noted above; will send for urine culture as well as urine cytology; will await urine culture results for potential treatment. We discussed potential causes of symptoms patient is reporting as well as further workup in risks and benefits of these interventions. We discussed potential causes of microscopic hematuria as well as further workup in risks and benefits of these interventions. Will obtain retroperitoneal ultrasound for further assessment evaluation. Will refer to associate director. We discussed proper hygiene in the area. Follow-up in 1-3 months with imaging to be completed prior; or sooner with any issues, concerns, and or questions. Orders: Orders AMB Urinalysis Automated Today Z13.9 - Encounter for screening, unspecified AMB Post Void Residual by ultrasound Today N39.46 - Mixed incontinence Urine Culture Today N39.46 - Mixed incontinence Urine Cytology Today N39.46 - Mixed incontinence AMB Post Void Residual by ultrasound Today N39.41 - Urge incontinence AMB Urinalysis Automated Today Z13.9 - Encounter for screening, unspecified US retroperitoneal comp Today N39.46 - Mixed incontinence, R31.29 - Other microscopic hematuria Referrals ADVERTISING REPRESENTATIVE Referral B96.89 - Other specified bacterial agents as the cause of diseases classified elsewhere, N76.0 - Acute vaginitis, Z87.42 - Personal history of other diseases of the female genital tract Patient Instructions: The patient had an opportunity to ask questions regarding the treatment plan. All questions were answered. Physical exam, labs, and imaging were discussed and reviewed in detail. As well as risks, benefits, and discussion of treatment choices. No major barriers to understanding were identified. The patient expressed understanding and agreement with the above treatment plan. The patient was made aware they should contact our office by phone for worsening of their current condition, the appearance of new symptoms, or with any questions or concerns. Compliance is encouraged with any medications and follow up testing that is ordered. It is a privilege to be allowed the opportunity to participate in? your urological care.? Again, if you have any questions or concerns If you have any questions or concerns please do not hesitate to contact me. The office is [phone]. This note is constructed using voice recognition software. While every effort has been made to ensure accuracy e business specialist errors may have been included. Yours sincerely, UMESH Graham Coding Level of Care Code New Pt Level 3 (05140) Diagnoses Mixed stress and urge urinary incontinence N39.46 Urinary Incontinence type: mixed stress and urge incontinence Microscopic hematuria R31.29 Former smoker Z87.891 CPT Codes Post Residual Void - PVR CPT Code: 39310-Rqrz Void Residual by ultrasound ([id number])
--- OUTSIDE RECORDS SUMMARY | 2024-08-29 09:14 | XMS_ITS | Encounter Summary ---
Author Organization [facility] Address [address] [place] [address] Care Team Providers Care Hand Mounter Name Role Phone Major Rosario MD Primary Care Provider Unavailab le Reason for Visit * Reason Onset Date Comments Medication 09/07/2023 Encounter Details Date Type Department Care Team Description 09/07/2023 Refill Gastroenterology - [place] 175 [facility] [address] [place] [id number] Fredrick Rodriguez DO 175 [facility] [address] [facility] [place] [address] Medication Social History Tobacco Use Types Packs/Day [...] filedocumented in this encounter Care Teams Hand Mounter Relationship Specialty Start Date End Date Major Rosario MD PCP - General Internal Medicine 09/05/19 documented as of this encounter
--- OUTSIDE RECORDS SUMMARY | 2024-08-29 09:14 | XMS_ITS | Encounter Summary ---
Author Organization [facility] Address [address] [place] [address] Care Team Providers Care Magnetic Tape Typewriter Operator Name Role Phone Major Rosario MD Primary Care Provider Hyun nick Encounter Details Date Type Department Care Team Description 09/21/2023 Orders Only Medical Records [address] [place] [address] Fredrick Rodriguez DO 175 [facility] [address] [facility] [place] [address] Social History Tobacco Use Types Packs/Day Years Used Date Smoking Tobacco: Former Cigarettes Q uit: 09/10/2007 Smokeless Tobacco: Never Alcohol Use Standard Drinks/Week Comments No 0 (1 standard drink = 0.6 oz pur e alcohol) Sex Assigned at Date Recorded Not on file documented as of this encounter Progress Notes * Cynthia Lu - 10/02/2023 10:54 AM EDT [employer] message sent to pt by Hugh Corrigan [...] on filedocumented in this encounter Care Teams Magnetic Tape Typewriter Operator Relationship Specialty Start Date End Date Major Rosario MD PCP - General Internal Medicine 09/05/19 documented as of this encounter
--- OUTSIDE RECORDS SUMMARY | 2024-08-29 09:14 | XMS_ITS | Clinical Summary ---
Author Organization [facility] Address [address] [place] [address] Care Team Providers Care Electrical System Specialist Name Role Phone Major Rosario MD [...] for Nausea. 60 Tab 6 06/25/2019 Active KS-ACID GAS RELIEF 80 MG chewable tablet CHEW [...] 2011 SHINGLES VACCINE (1 of 2) 09/13/2021 BMI CHECK/ADVISE 04/10/2024 09/11/2017 DEPRESSION SCREENING/FOLLOWUP 04/10/2024 SOCIAL NEEDS SCREENING 04/10/2024 INFLUENZA (Season Ended) 2024 COLON CANCER SCREENING 09/17/2033 09/18/2023, 2017 Care Teams Electrical System Specialist Relationship Specialty Start Date End Date Major Rosario MD PCP - General Internal Medicine 09/05/19
--- OUTSIDE RECORDS SUMMARY | 2024-08-29 09:14 | XMS_ITS | Encounter Summary ---
Author Organization [facility] Address [address] [place] [address] Care Team Providers Care Home Energy Consultant Supervisor Name Role Phone Community, Pcp Primary Care Provider Aye Zepeda Primary Care Provider Major Alatorre MD Primary Care Provider Sacha Mack MD Primary Care Provider Major Grayson MD Primary Care Provider Hyun nick Encounter Details Date Type Department Care Team Description 11/21/2018 Old Medical Records Medical Records [address] [place] [id number] Abstract, Provider Social History Tobacco Use Types [...] on filedocumented in this encounter Care Teams Home Energy Consultant Supervisor Relationship Specialty Start Date End Date [facility], Pcp PCP - General Internal Medicine 08/31/17 01/09/19 Aye Tenorio PCP - General Geriatrics 01/10/19 03/25/19 Major Rosario MD PCP - General Internal Medicine 03/26/19 07/14/19 Sacha Alegre MD PCP - General Internal Medicine 07/15/19 09/04/19 Major Rosario MD PCP - General Internal Medicine 09/05/19 documented as of this encounter
--- OUTSIDE RECORDS SUMMARY | 2024-08-29 09:14 | XMS_ITS | Encounter Summary ---
Author Organization [facility] Address [address] [place] [address] Care Team Providers Care Hand Endband Cutter Name Role Phone Sacha Alegre MD Primary Care Provider Major Grayson MD Primary Care Provider Unavailab le Reason for Visit * Reason Comments E-prescribe Rx Request Encounter Details Date Type Department Care Team Description 07/22/2019 Refill Gastroenterology - [place] [address] [phone] Hugh Corrigan PA-C [address] [address] E-prescribe Rx Request Social History Tobacco Use [...] filedocumented in this encounter Care Teams Hand Endband Cutter Relationship Specialty Start Date End Date Sacha Alegre MD PCP - General Internal Medicine 07/15/19 09/04/19 Major Rosario MD PCP - General Internal Medicine 09/05/19 documented as of this encounter
--- OUTSIDE RECORDS SUMMARY | 2024-08-29 09:14 | XMS_ITS | Encounter Summary ---
Author Organization [facility] Address [address] [place] [address] Care Team Providers Care Employment Clerk Name Role Phone Major Rosario MD Primary Care Provider Hyun nick Encounter Details Date Type Department Care Team Description 09/18/2023 Hospital Medical Records [address] [place] [address] Fredrick Rodriguez, DO 175 [facility] [address] [facility] [place] [address] Social History Tobacco Use Types Packs/Day Years [...] on filedocumented in this encounter Care Teams Employment Clerk Relationship Specialty Start Date End Date Major Rosario MD PCP - General Internal Medicine 09/05/19 documented as of this encounter
--- OUTSIDE RECORDS SUMMARY | 2024-08-29 09:14 | XMS_ITS | Encounter Summary ---
Author Organization [facility] Address [address] [place] [address] Care Team Providers Care Internet Network Specialist Name Role Phone Major Rosario MD Primary Care Provider Unavailab le Reason for Visit * Reason Onset Date Comments Error 03/19/2021 Encounter Details Date Type Department Care Team Description 03/19/2021 Telephone Gastroenterology - [place] [address] [phone] Hugh Corrigan PA-C [address] [facility] [address] [place] [address] Error Social History Tobacco Use Types Packs/Day [...] on filedocumented in this encounter Care Teams Internet Network Specialist Relationship Specialty Start Date End Date Major Rosario MD PCP - General Internal Medicine 09/05/19 documented as of this encounter
--- OUTSIDE RECORDS SUMMARY | 2024-08-29 09:14 | XMS_ITS | Encounter Summary ---
Author Organization [facility] Address [address] [place] [address] Care Team Providers Care Quality Improvement Analyst Name Role Phone Major Rosario MD Primary Care Provider Sacha Mack MD Primary Care Provider Major Grayson MD Primary Care Provider Hyun nick Encounter Details Date Type Department Care Team Description 03/29/2019 Transfer Records Medical Records [address] [place] [address] Abstract, Provider Social History Tobacco Use Types [...] on filedocumented in this encounter Care Teams Quality Improvement Analyst Relationship Specialty Start Date End Date Major Rosario MD PCP - General Internal Medicine 03/26/19 07/14/19 Sacha Alegre MD PCP - General Internal Medicine 07/15/19 09/04/19 Major Rosario MD PCP - General Internal Medicine 09/05/19 documented as of this encounter
--- OUTSIDE RECORDS SUMMARY | 2024-08-29 09:14 | XMS_ITS | Encounter Summary ---
Author Organization [facility] Address [address] [place] [address] Care Team Providers Care Biology Faculty Member Name Role Phone Major Rosario MD Primary Care Provider Sacha Mack MD Primary Care Provider Major Grayson MD Primary Care Provider Hyun nick Encounter Details Date Type Department Care Team Description 03/29/2019 Transfer Records Medical Records [address] [place] [address] Abstract, Provider Social History Tobacco Use Types [...] on filedocumented in this encounter Care Teams Biology Faculty Member Relationship Specialty Start Date End Date Major Rosario MD PCP - General Internal Medicine 03/26/19 07/14/19 Sacha Alegre MD PCP - General Internal Medicine 07/15/19 09/04/19 Major Rosario MD PCP - General Internal Medicine 09/05/19 documented as of this encounter
== END 2024-08-29 09:38 | disposition home or self-care (01) ==
LOC: HO.HUSH 09:00
PROVIDERS: PCP Nurse Practitioner Family; Visit Provider Nurse Practitioner Family
DX: N39.46 Mixed incontinence (principal); R31.29 Other microscopic hematuria; Z87.891 Personal history of nicotine dependence; Z13.9 Encounter for screening, unspecified
CPT/HCPCS: 99203

== ENCOUNTER 2024-08-29 09:47 | Outpatient (AMB) | payer OTHER, SELFPAY ==
--- NOTE | 2024-08-29 07:26 | A.OFFVIS_ITS ---
Vital Signs 08/29/24 09:49 Height 5 ft 5 in Weight 209 lb 7.026 oz BMI 34.8 BP 114/68 Blood Pressure Location Rt brachial Position Sitting Pulse 78 Pulse Source Pulse Oximeter Pulse Oximetry (%) 98 Oxygen Delivery Method Room Air Intake Visit Reasons: T1DM Intake Note: Patient presents today for a follow-up on Type 1 Diabetes Mellitus: Last Diabetic eye exam was on: 01/2024 Last Podiatry exam was on: Does not see a Compact Assembler Most recent HbA1c: 7.5%, 06/07/2024 Random Glucose- 165 mg/dL, Today Rn Assessment Required: No Allergies No Known Allergies Allergy (Verified 08/29/24 09:42) HPI Comments Details: 53 YO F with PMHx T1DM, multinodular thyroid and HLD who is seen in F/U for T1DM. She was previously followed by [facility]. She was last seen 06/07/2024. She was switched over to an islet insulin pump early . She previously had been on a tandem T slim. She is doing well but is hesitant to announce her supper meal because she had some nocturnal highs. She has had a few lows during the day which may have been over treated. She will go to the lab in 1 week to have her A1c done 1. T1DM: Initially diagnosed with T1DM at the age of 13 when she was diagnosed at her elementary school. Dexcom average glucose: 170 14 day continuous glucose monitor report reviewed TIme in ranges: Six % very high (above 250) 32 % high ?(181-250) 61 % in range ?(70-180] 1 % low (69-55) 1 % ?very low (below 54) Interpretation ; few mild lows followed by highs She does not have hypoglycemia awareness and does correct according to the rule of 15's. Family history of autoimmunity in her son with albinism. Has eyes checked yearly, last eye exam january 2024 , no history of Retinopathy. Denies neuropathy, does see podiatry. Denies any ulcerations. She will schedule with new podiatriist Denies nephropathy. On lisinopril 2.5 mg PO daily. 06/26/2024 eGFR>60 microalbumin less than 5.0 No known CAD. ldl 92 06/2024 on statin Has had Diabetes Education. No prior episodes of DKA. Denies episodes of severe hypoglycemia. 2. Multinodular Thyroid: Has a multinodular thyroid.. Denies any history of head or neck irradiation. Denies family history of thyroid cancer. US Thyroid: Ultrasound soft tissue head/neck thyroid dated 12/01/2021 and 06/11/2020. TECHNIQUE: Linear transducer grayscale and color Doppler examination with attention to the region of the thyroid. FINDINGS: SIZE: Measurements of the thyroid lobes and nodules are given in sagittal, anteroposterior and transverse dimensions respectively. Right Thyroid Lobe: 4.6 x 1.3 x 1.4 cm, volume 4.2 mL. Previously 4.7 x 1.3 x 1.5 cm, volume 4.8 mL. Parenchyma: The gland echotexture is homogeneous. Thyroid vascularity is normal. Left Thyroid Lobe: 4.2 x 1.2 x 1.5 cm, volume 4.0 mL. Previously 5.0 x 1.5 x 1.7 cm, volume 6.7 mL. Parenchyma: The gland echotexture is homogeneous. Thyroid vascularity is normal. Isthmus: 0.2 cm in maximum AP dimension. Previously 0.2 cm. Estimated total number of nodules greater than or equal to 1 cm: 0. Carpenters nodules are described as follows: 1. Location: Right mid. Size: 0.5 x 0.4 x 0.5 cm, volume 0.05 mL. Previously: 0.5 x 0.3 x 0.4 cm, volume 0.03 mL. Nodule characteristics: Composition: Solid (2). Echogenicity: Hypoechoic (2). Shape: Not taller than wide (0). Margins: Smooth (0). Echogenic Foci: None (0). ACR TI-RADS total points: 4 Previous: 3 ACR TI-RADS category: 4 Previous: 3 Significant change in size (>/= 20% in 2 dimensions and minimal increase of 2 mm or 50% or greater increase in volume): Yes Change in features: No Change in ACR TI-RADS risk category: No NODES: No lymphadenopathy is seen in the tissue surrounding the thyroid gland. US/US thyroid IMPRESSION: A small right thyroid lobe nodule is seen, as detailed. No specific follow-up is recommended. 12/01/2021 Right Thyroid Lobe: 4.7 x 1.3 x 1.5 cm, volume 4.8 mL. Previously 4.9 x 1.1 x 1.5 cm, volume 4.2 mL. Parenchyma: The gland echotexture is homogeneous. Thyroid vascularity is normal. Left Thyroid Lobe: 5.0 x 1.5 x 1.7 cm, volume 6.7 mL. Previously 4.8 x 1.0 x 1.6 cm, volume 4.0 mL. Parenchyma: The gland echotexture is homogeneous. Thyroid vascularity is normal. Isthmus: 0.2 cm in maximum AP dimension. Previously 0.3 cm. Estimated total number of nodules greater than or equal to 1 cm: 0. Carpenters nodules are described as follows: 1.? Location: Right mid medial. ?? ? Size: 0.5 x 0.3 x 0.4 cm, volume 0.03 mL. ?? ? Previously: 0.4 x 0.3 x 0.4 cm, volume 0.03 mL. ?? ? Nodule characteristics: ?? ? Composition: Solid (2). ?? ? Echogenicity: Isoechoic (1). ?? ? Shape: Not taller than wide (0). ?? ? Margins: Smooth (0). ?? ? Echogenic Foci: None (0).? ACR TI-RADS total points: 3 Previous: 3 ?? ? ACR TI-RADS category: 3 Previous: 3 ? Significant change in size (>/= 20% in 2 dimensions and minimal increase of 2 mm or 50% or greater increase in volume): None ?? ? Change in features: None ?? ? Change in ACR TI-RADS risk category: None NODES: No lymphadenopathy is seen in the tissue surrounding the thyroid gland. [facility] Medical History Thyroid disorder Sleep disturbance Neuropathy RLS (restless legs syndrome) IBS (irritable bowel syndrome) Hypercholesterolemia GERD (gastroesophageal reflux disease) Esophageal stricture Dysmenorrhea Diabetic neuropathy Anxiety and depression Asthma ASCUS with positive high risk HPV cervical Hx of mammogram (~12/2023) Vitamin D deficiency Multinodular thyroid HLD (hyperlipidemia) HTN (hypertension) T1DM (type 1 diabetes mellitus) Surgical History Hx of prior ablation treatment Hx of colonoscopy (~09/2023) History of ear surgery Family History Father Diabetes Mother Colonic polyp Maternal Grandmother Breast cancer Cardiovascular disease Maternal Grandfather Cardiovascular disease Social History Household Members: None Both parents involved: No Caregiver staying overnight: No Housing: Apartment Are you a primary animal care taker to a significant other at home: No Do you presently have visiting nurse or other home services: No 75 years or older and lives alone: No Alcohol intake: never Patient Tobacco Use Status: Former Tobacco user Cigarette Packs Per Day: 1 Years Smoked: 10 e-Cigarette/Vaping Use: Never Used Second Hand Smoke Exposure: No Current occupational status: employed 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 Absence of acromegalic features. Neck exam reveals nl size thyroid about 15 gms. No large nodules palpable. Heart S1 S2, Reg R/R. No M/R G. Skin exam reveals absence of vitiligo or acanthosis nigricans. No edema Visual exam of foot performed. No ulcerations or open lesions. No inter digit maceration or fissuring. + onychomycosis, nails well trimmed, no callouses. Sensation intact to monofilament exam. Vibratory sensation is normal with 128 Hz tuning fork. Pulses positive distally Results AMB Urinalysis, Automated UA Leukoctes 500 Juhi/uL Last Edit by Julia Huizar on 08/29/24 09:25 UA Nitrite Last Edit by Julia Huizar on 08/29/24 09:25 UA Urobilinogen 0.2 mg/dL Last Edit by Julia Huizar on 08/29/24 09:25 UA Protein 15 mg/dL Last Edit by Julia Huizar on 08/29/24 09:25 UA pH 6.0 Last Edit by Julia Huizar on 08/29/24 09:25 UA Blood 80 Andres/uL Last Edit by Julia Huizar on 08/29/24 09:25 UA Specific [place] 1.020 Last Edit by Julia Huizar on 08/29/24 09:25 UA Ketone Last Edit by Julia Huizar on 08/29/24 09:25 UA Bilirubin 0 mg/dL Last Edit by Julia Huizar on 08/29/24 09:25 UA Glucose 0 mg/dL Last Edit by Julia Huizar on 08/29/24 09:25 Assessment & Plan Assessment & Plan (1) T1DM (type 1 diabetes mellitus): Code(s): E10.9 - Type 1 diabetes mellitus without complications Category: Medical Qualifiers: Diabetes mellitus complication status: with hyperglycemia Qualified Code(s): E10.65 - Type 1 diabetes mellitus with hyperglycemia Plan: Type 1 diabetic recently switched over to an ILET pump. She will have an A1c in the office in 1 week. We discussed the nature of the algorithms on this particular pump. She was encouraged not to over treat lows as this will cause highs in the next day the pump may actually give her more insulin at that time. If she is low she will check by fingerstick and treat based on this. The lows have been fairly mild with some highs. She does not believe this is a particular problem at this time but was counseled that if she is struggling with lows and highs she could come in for a 60 minute appointment with the Molly WHEELER for [employer] recent. The patient had an opportunity to ask questions regarding treatment plan. The patient expressed understanding and agreement with the above treatment plan. The patient is aware they should contact our office by phone for worsening glucose readings or for any low blood sugars which may warrant a change in diabetes medication. Compliance is encouraged with medications and any followup testing/consults which may have been ordered. Orders: Orders Hemoglobin A1c 1 Week E10.65 - Type 1 diabetes mellitus with hyperglycemia AMB Glucose Monitoring Today E10.65 - Type 1 diabetes mellitus with hyperglycemia Patient Instructions: Troubleshooting after starting new pod or inserting new insulin set: Occlusion, adhesive tape sensitivity, redness Check BG 2 hours after site change Safety information: Importance of a backup plan, for manual injections, proper prescriptions and emergency supplies ketone strips, and rules for testing for ketones Check your feet daily looking for any signs of infection, drainage, redness, ulceration and seek medical attention if this occurs. Break in shoes gradually and do not wear open-toed shoes or walk stocking footed or barefooted. Coding Level of Care Code Est Pt Level 4 (76747) Complex EM visit Add On G2211 Diagnoses Type 1 diabetes mellitus with hyperglycemia E10.65 Diabetes mellitus complication status: with hyperglycemia Time Spent (min) 30 Comment Time spent reviewing labs/provider notes, face to face, chart doc
[2024-08-29 09:49] VITALS: BP 114/68; PULSE 78; O2SAT 98; BMI 34.8
[2024-08-29 09:58] LABS: Glucose, Whole Blood 165 mg/dL (60-115)
== END 2024-08-29 10:21 | disposition home or self-care (01) ==
LOC: HO.ENCR 09:48
PROVIDERS: Visit Provider Nurse Practitioner Adult Health
DX: E10.65 Type 1 diabetes mellitus with hyperglycemia (principal)
CPT/HCPCS: 99214; G2211

== ENCOUNTER 2024-10-02 12:51 | Outpatient (REF) | payer OTHER, SELFPAY ==
--- NOTE | ~2024-10-02 | XR_ITS ---
EXAMINATION: XR RIBS, RIGHT CLINICAL INFORMATION: W10.8XXA - Fall (on) (from) other stairs and steps, initial encounter COMPARISON: None available. TECHNIQUE: 3 views of the right ribs were obtained. FINDINGS: Lungs are clear. No consolidation, pneumothorax, or pleural effusion. The cardiomediastinal silhouette and pulmonary vasculature are normal. Osseous structures are unremarkable. Ribs are intact. No fractures are identified. XR/XR ribs RT min 3V w CXR1V IMPRESSION: No acute findings of the thorax or right ribs. Electronically signed by: Lalo Hicks MD 10/02/2024 02:14 PM EDT
== END 2024-10-02 12:52 | disposition home or self-care (01) ==
LOC: HO.HMGCX 12:51
PROVIDERS: PCP Nurse Practitioner Family; Visit Provider Physician Assistant
DX: R07.81 Pleurodynia (principal); Z91.81 History of falling
CPT/HCPCS: 71101; 99212

== ENCOUNTER 2024-10-02 12:51 | Outpatient (AMB) | payer OTHER, SELFPAY ==
[2024-10-02 12:53] VITALS: BP 112/74; PULSE 79; TEMP 36.8; O2SAT 95; BMI 34.5
--- NOTE | 2024-10-02 12:53 | AM.OFFWIN_ITS ---
Intake Vital Signs 10/02/24 12:53 Height 5 ft 5 in Weight 207 lb 8 oz BMI 34.5 BP 112/74 Blood Pressure Location Rt brachial Position Sitting Pulse 79 Pulse Source Pulse Oximeter Temp 98.2 F Pulse Oximetry (%) 95 Oxygen Delivery Method Room Air Intake Visit Reasons: EP-rt side breast bruise/pain from a fall Intake Note: Patient present right breast bruising do to a fall last night Patient Tobacco Use Status: Former Tobacco user Lock And Dam Operator Required: No Is last menstrual period known: No Post menopausal: Yes Patient : No Allergies No Known Allergies Allergy (Verified 08/29/24 09:42) Do you need a note to return to daycare/school/sports/work: No HPI HPI Comments History of Present Illness Details History of Present Illness - The patient is a 54-year-old female pr esenting with rib pain and hematoma following a fall. - The incident occurred when the patient fell down three stairs after kicking a door, hitting her right side against a fire extinguisher and a wooden desk. - The fall resulted in significant pain on the right side, particularly when taking deep breaths, and a large bruise on her right breast. - The patient reports shortness of breat h and pain upon palpation of the ribs. - She has not experienced any loss of co nsciousness or head injury and is not on blood thinners. - The patient has been managing pain wit h a dual-action pain reliever containing acetaminophen and aspirin. Physical Exam General: Cooperative, healthy appearing, comfortable, no acute distress and well developed Orientation: Patient oriented x3 Limitations: No limitations Head: Normal to inspection Ears: Hearing grossly normal bilaterally Face and sinus: Normal facial exam Eyes: Appearance normal, both eyes and all related structures Neck: Normal visual inspection, full ROM Chest: 3cm round area of purple ecchymosis on right lateral breast, TTP on ribs T6-T7 from mid clavicular to mid axialary line Respiratory: Clear to auscultation bilaterally. Normal respiratory effort, able to speak in complete sentences Cardiac: regular rate and rhythm, normal s1 and s2, no murmurs Skin: No rashes or lesions noted, presence of hematoma on the right side Neuro: Patient oriented x3, gait normal Extremities: normal to inspection, bandaid on right knee [facility] Medical History Thyroid disorder Sleep disturbance Neuropathy RLS (restless legs syndrome) IBS (irritable bowel syndrome) Hypercholesterolemia GERD (gastroesophageal reflux disease) Esophageal stricture Dysmenorrhea Diabetic neuropathy Anxiety and depression Asthma ASCUS with positive high risk HPV cervical Hx of mammogram (~12/2023) Vitamin D deficiency Multinodular thyroid HLD (hyperlipidemia) HTN (hypertension) T1DM (type 1 diabetes mellitus) Surgical History Hx of prior ablation treatment Hx of colonoscopy (~09/2023) History of ear surgery Family History Father Diabetes Mother Colonic polyp Maternal Grandmother Breast cancer Cardiovascular disease Maternal Grandfather Cardiovascular disease Social History Household Members: None Both parents involved: No Caregiver staying overnight: No Housing: Apartment Are you a primary managed care provider to a significant other at home: No Do you presently have visiting nurse or other home services: No 75 years or older and lives alone: No Alcohol intake: never Patient Tobacco Use Status: Former Tobacco user Cigarette Packs Per Day: 1 Years Smoked: 10 e-Cigarette/Vaping Use: Never Used Second Hand Smoke Exposure: No Patient : No Current occupational status: employed 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 Cognitive needs: No Hearing needs: No Vision needs: Yes (wear glasses) Review of Systems Const All systems reviewed & are unremarkable except as noted in HPI and below Physical Exam Vital Signs: Last Vital Signs Temp 98.2 F 10/02/24 12:53 Pulse 79 10/02/24 12:53 BP 112/74 10/02/24 12:53 Pulse Ox 95 10/02/24 12:53 Oxygen Delivery Method Room Air 10/02/24 12:53 BMI result Body Mass Index 34.5 Assessment & Plan Assessment & Plan (1) Fall (on) (from) other stairs and steps, initial encounter: Code(s): W10.8XXA - Fall (on) (from) other stairs and steps, initial encounter Plan: Patient was informed and verbally consented to the use of an ambient scribe for clinic note documentation during this visit. 1. Rib Contusion - An x-ray of the ribs and lungs was ordered to assess for fractures or other injuries, as pt has shortness of breath and pain with inspiration. - The patient was advised to use ibuprofen and lidocaine cream for pain management. - The importance of taking deep breaths to prevent pneumonia was emphasized. - Incentive spirometer was provided with instructions to use 3 times a day. 2. Hematoma - The patient was informed about the natural progression of the hematoma, including color changes and gravity effects. - Application of heat was recommended to aid in the resolution of the hematoma. (2) Rib pain on right side: Code(s): R07.81 - Pleurodynia Plan: as above Orders: Orders XR ribs RT min 3V w CXR1V Today R07.81 - Pleurodynia, W10.8XXA - Fall (on) (from) other stairs and steps, initial encounter Coding Level of Care Code Est Pt Level 4 (62158) Diagnoses Fall (on) (from) other stairs and steps, initial encounter W10.8XXA Rib pain on right side R07.81
--- OUTSIDE RECORDS SUMMARY | 2024-10-02 14:57 | XMS_ITS | Clinical Summary ---
Author Organization 175 [facility] Address [address] [place] [address] Phone Care Team Providers Care Master Hearth Technician Name Role Phone Major Rosario MD Primary Care Provider Unavailab le Medications dicyclomine (BENTYL) 10 mg capsule Take 1 capsule by mouth twice daily 120 capsule 09/05/2024 Active Surgical History Surgery Date Site/Laterality Comments COLONOSCOPY PROCEDURE: HISTORICAL COLONOSCOPY; COMMENT: x2 with Dr Bridges for IBS sxs last performed by Dr. Bowers in 2017 with a suggested 5-year follow-up ESOPHAGOGASTRODUODENOSCOPY PROCEDURE: [place] EGD TRANSORAL BIOPSY SINGLE/MULTIPLE; COMMENT: Performed in July [address] Bridges noted for mild gastritis Medical History Medical History Date Comments Postprandial abdominal bloating DX:Postprandial abdominal bloating IBS (irritable bowel syndrome) D X:IBS (irritable bowel syndrome) Early satiety DX:Early satiety Nausea DX:Nausea Asthma DX:Asthma Anxiety DX:Anxiety GERD (gastroesophageal reflux disease) DX:GERD (gastroesophageal reflux disease) Hyperlipidemia DX:Hyperlipidemi a Obesity DX:Obesity Rectal pain DX:Rectal pain Diabetes mellitus type 2, un complicated (CMS/HCC V24, CMS/HCC V28) DX:Diabetes mellitus type 2 , uncomplicated (HCC) Pyelonephritis DX:Pyelonephriti s; COMMENT: Recently diagnosed on CT from [facility]-June 2019 Dysphagia DX:Dysphagia Globus sensation DX:Globus sensa tion Cough DX:Cough Encounter for screening colonoscopy DX:Encounter for screening colonoscopy Dysphagia DX:Dysphagia Cough DX:Cough Family history of polyps in the colon DX:Family history of polyps in the colon Family History Medical History Relation Name Comments Colon polyps Brother Breast cancer Maternal Grandmother 70's Stomach cancer Maternal Grandmother Stomach cancer Paternal Grandfather Stomach cancer Paternal Grandmother Relation Name Status Comments Brother Father Alive Maternal Grandmother Mother Alive Paternal Grandfather Paternal Grandmother Social History Tobacco Use Types Packs/Day Years Used Date Smoking Tobacco: Former Cigarettes Q uit: 09/10/2007 Smokeless Tobacco: Never Alcohol Use Standard Drinks/Week Comments No 0 (1 standard drink = 0.6 oz pur e alcohol) Comments Unknown Sex and Gender Information Value Date Recorded Sex Assigned at Not on file Legal Sex Female 6:56 PM EST Gender Identity Not on file Sexual Orientation Not on file Obstetrics History Last Filed Vital Signs Vital Sign Reading Time Taken Comments Blood Pressure 126/64 06/27/2023 10:15 AM EDT Si tting L Arm Pulse 87 06/27/2023 10:15 AM EDT Temperature - - Respiratory Rate - - Oxygen Saturation - - Inhaled Oxygen Concentration - - Weight 90.7 kg (200 lb) 06/27/2023 10:15 AM EDT Height 165.1 cm (5' 5 ) 06/27/2023 10:15 AM EDT Body Mass Index 33.28 06/27/2023 10:15 AM EDT Plan of Treatment Upcoming Encounters Date Type Department Care Team (Late st Contact Info) Description 11/07/2024 1:00 PM EDT Office Visit Gastroenterology - [place] [address] [place] [phone] Virginia Evans PA [address] [place] [address] Health Maintenance Due Date Last Done Comments Breast Cancer Screening 1971 Diabetes: Annual GFR (Glomer ular Filtration Rate) 1971 Diabetes: Annual Foot Exam 09/13/1981 Diabetes: Annual Retina Eye Exam 09/13/1981 DTaP,Tdap,and Td Vaccines (1 - Tdap) 09/13/1990 Hepatitis B Vaccines (1 of 3 - 19+ 3-dose series) 09/13/1990 Pneumococcal Vaccine: 50+ Ye ars (1 of 2 - PCV) 09/13/1990 Pneumococcal Vaccine: Pediat rics (0 to 5 Years) and At-Risk Patients (6 to 64 Years) (1 of 2 - PCV) 09/13/1990 Cervical Cancer Screening: P ap Smear 09/13/1992 Zoster Vaccines (1 of 2) 09/13/2021 Cholesterol Screening (Lipid Panel) 03/12/2022 Colorectal Cancer Screening: Colonoscopy 03/12/2022 Depression Screening 03/12/2022 HIV Screening 03/12/2022 Hepatitis C Screening 03/12/2022 Social Influencers of Health Screening 03/12/2022 Diabetes: Annual Urine Albumin-Creatinine Ratio (uACR) 03/24/2022 Diabetes: Blood Sugar Contro l Test (HGBA1C) 03/24/2022 COVID-19 Vaccine (2023-2 5 season) 2023 Influenza Vaccine (Season Ended) 2024 HIB Vaccines Aged Out No longer eligi ble based on patient's age to complete this topic HPV Vaccines Aged Out No longer eligi ble based on patient's age to complete this topic Hepatitis A Vaccines Aged Out No long er eligible based on patient's age to complete this topic IPV Vaccines Aged Out No longer eligi ble based on patient's age to complete this topic MMR Vaccines Aged Out No longer eligi ble based on patient's age to complete this topic Meningococcal ACWY Vaccine Aged Out N o longer eligible based on patient's age to complete this topic Meningococcal B Vaccine Aged Out No l onger eligible based on patient's age to complete this topic RSV Immunization Patients Un erika 20 months Aged Out No longer eligible b ased on patient's age to complete this topic Varicella Vaccines Aged Out No longer eligible based on patient's age to complete this topic Insurance [facility] PLAN Care Teams Master Hearth Technician Relationship Specialty Start Date End Date Major Rosario MD PCP - General Internal Medicine 03/26/19
== END 2024-10-02 13:47 | disposition home or self-care (01) ==
PROVIDERS: PCP Nurse Practitioner Family; Visit Provider Physician Assistant
DX: R07.81 Pleurodynia (principal); W10.8XXA Fall (on) (from) other stairs and steps, initial encounter

== ENCOUNTER → 2024-10-02 13:33 | Outpatient (BNV) | payer OTHER, SELFPAY | PROVIDERS: PCP Nurse Practitioner Family; Visit Provider Radiology Diagnostic Radiology | DX: R07.81 Pleurodynia (principal) | CPT/HCPCS: 71101 ==

== ENCOUNTER 2024-10-14 14:16 | Outpatient (REF) | payer OTHER, SELFPAY ==
--- NOTE | ~2024-10-14 | US_ITS ---
EXAMINATION: US RETROPERITONEUM HISTORY: R31.29 - Other microscopic hematuria TECHNIQUE: Real-time grayscale ultrasound imaging of the kidneys was performed and images were reviewed. COMPARISON: There are no prior studies available for comparison. FINDINGS: Right kidney: The right kidney measures 11.2 x 4.8 x 5.8 cm. Renal parenchymal echotexture and thickness are normal. There are no masses. There is no hydronephrosis or renal calculi. Left Kidney: The left kidney measures 10.7 x 5.1 x 5.2 cm. Renal parenchymal echotexture and thickness are normal. There are no masses. There is no hydronephrosis or renal calculi. The urinary bladder is unremarkable. Bilateral ureteral jets are identified. Before voiding, the urinary bladder measured 9.4 x 14.3 x 8.2 cm, for an estimated volume of 577 mL. After voiding, the urinary bladder measured 2.0 x 3.1 x 4.8 cm, for an estimated volume of 15.6 mL. US/US retroperitoneal comp IMPRESSION: Unremarkable retroperitoneal ultrasound. Post void bladder residual of 15.6 mL. Electronically signed by: Deng Santana MD 10/14/2024 02:50 PM EDT
--- OUTSIDE RECORDS SUMMARY | 2024-10-14 14:45 | XMS_ITS | Clinical Summary ---
Author Organization 175 [facility] Address [address] [place] [address] Phone Care Team Providers Care Planetarium Technician Name Role Phone Major Rosario MD Primary Care Provider Unavailab le Medications dicyclomine (BENTYL) 10 mg capsule Take 1 capsule by mouth twice daily 120 capsule 09/05/2024 Active Surgical History Surgery Date Site/Laterality Comments COLONOSCOPY PROCEDURE: HISTORICAL COLONOSCOPY; COMMENT: x2 with Dr Bridges for IBS sxs last performed by Dr. Bowers in 2017 with a suggested 5-year follow-up ESOPHAGOGASTRODUODENOSCOPY PROCEDURE: [place] EGD TRANSORAL BIOPSY SINGLE/MULTIPLE; COMMENT: Performed in [...] s; COMMENT: Recently diagnosed on CT from [facility]-June 2019 Dysphagia DX:Dysphagia Globus sensation DX:Globus [...] 1:00 PM EDT Office Visit Gastroenterology - [place] [address] [place] [phone] Virginia Evans PA [address] [place] [address] Health Maintenance Due Date Last Done Comments [...] 5 Years) and At-Risk Patients (6 to 49 Years) (1 of 2 - PCV) 09/13/1990 [...] Vaccine (2023-2 5 season) 2023 Influenza Vaccine (#1) 2024 HIB Vaccines Aged Out No longer [...] patient's age to complete this topic Insurance [facility] PLAN Care Teams Planetarium Technician Relationship Specialty Start Date End Date Major Rosario MD PCP - General Internal Medicine 03/26/19
== END 2024-10-14 14:17 | disposition home or self-care (01) ==
LOC: HO.US 14:16
PROVIDERS: PCP Nurse Practitioner Family; Visit Provider Nurse Practitioner Family
DX: N39.46 Mixed incontinence (principal); R31.29 Other microscopic hematuria
CPT/HCPCS: 76770

== ENCOUNTER → 2024-10-14 14:19 | Outpatient (BNV) | payer OTHER, SELFPAY | PROVIDERS: PCP Nurse Practitioner Family; Visit Provider Radiology Diagnostic Radiology | DX: R31.29 Other microscopic hematuria (principal) | CPT/HCPCS: 76770 ==

== ENCOUNTER 2024-12-19 10:43 | Outpatient (REF) | payer OTHER, SELFPAY ==
[2024-12-19 14:53] LABS: Alanine Aminotransferase 15 U/L (0-31); Albumin Level 4.0 g/dL (3.5-5.0); Alkaline Phosphatase 58 U/L (39-117); Aspartate Amino Transferase 21 U/L (5-31); Total Protein 7.1 g/dL (6.5-8.0)
== END 2024-12-19 10:44 | disposition home or self-care (01) ==
LOC: HO.WFDLDS 10:43
PROVIDERS: Visit Provider Podiatrist Foot Surgery
DX: L60.0 Ingrowing nail (principal); B35.1 Tinea unguium; M79.674 Pain in right toe(s)
CPT/HCPCS: 36415; 80076

== ENCOUNTER 2025-02-24 08:15 | Outpatient (REF) | payer OTHER, SELFPAY ==
[2025-02-24 16:35] LABS: Bacterial Vaginosis PCR NEGATIVE (Negative); Candida Group PCR DETECTED (Not Detect); Candida glab krusei PCR NOT DETECTED (Not Detect); Trichomonas vaginalis PCR NOT DETECTED (Not Detect)
[2025-02-24 17:06] LABS: CT PCR NOT DETECTED (Not Detect.); NG PCR NOT DETECTED (Not Detect.)
== END 2025-02-24 08:16 | disposition home or self-care (01) ==
LOC: HO.LNP 08:15
PROVIDERS: PCP Nurse Practitioner Family; Visit Provider Obstetrics & Gynecology
DX: N89.8 Other specified noninflammatory disorders of vagina (principal); N95.0 Postmenopausal bleeding; Z87.42 Personal history of other diseases of the female genital tract; Z20.2 Contact with and (suspected) exposure to infections with a predominantly sexual mode of transmission
CPT/HCPCS: 81515; 87491; 87591; 99202

== ENCOUNTER 2025-02-24 08:15 | Outpatient (AMB) | payer OTHER, SELFPAY ==
--- NOTE | 2025-02-24 08:25 | A.OFFVIS_ITS ---
Vital Signs 02/24/25 08:26 Height 5 ft 5 in Weight 209 lb BMI 34.8 BP 130/74 Intake Visit Reasons: acute vaginitis/DO NOT RS Inspector Health Care Facilities Required: No Information Interpreted: non-clinical & clinical Insulation Batting Machine Operator: Insulation Batting Machine Operator Present (Cassandra Ruano LIBAN) Accompanied by: Self / Same As Patient Allergies No Known Allergies Allergy (Verified 02/24/25 08:27) Post menopausal: Yes HPI Comments Details: Presenting complaining of vaginal discharge with foul odor, no itching and 2 episodes of spotting The patient has history of abnormal Pap smear in 2021 with negative biopsy a ccording to the note available, repeat Pap smear was taken in 06/04 at [facility], and was negative, the patient has the results on her the patient portal [facility] Medical History Thyroid disorder Sleep disturbance Neuropathy RLS (restless legs syndrome) IBS (irritable bowel syndrome) Hypercholesterolemia GERD (gastroesophageal reflux disease) Esophageal stricture Dysmenorrhea Diabetic neuropathy Anxiety and depression Asthma ASCUS with positive high risk HPV cervical Hx of mammogram (~12/2023) Vitamin D deficiency Multinodular thyroid HLD (hyperlipidemia) HTN (hypertension) T1DM (type 1 diabetes mellitus) Surgical History Hx of prior ablation treatment Hx of colonoscopy (~09/2023) History of ear surgery Family History Father Diabetes Mother Colonic polyp Maternal Grandmother Breast cancer Cardiovascular disease Maternal Grandfather Cardiovascular disease Social History Household Members: None Both parents involved: No Caregiver staying overnight: No Housing: House Are you a primary intensive care unit nurse to a significant other at home: No Do you presently have visiting nurse or other home services: No 75 years or older and lives alone: No Alcohol intake: current Alcohol intake frequency: holidays/special occasions only Patient Tobacco Use Status: Former Tobacco user Cigarette Packs Per Day: 1 Years Smoked: 10 e-Cigarette/Vaping Use: Never Used Second Hand Smoke Exposure: No Current occupational status: employed 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 Sexually active: No Sexual orientation: Straight/Heterosexual Gender identity: Female Cognitive needs: No Hearing needs: No Vision needs: Yes (wear glasses) Female Reproductive History Menstrual Menopause type: natural Total pregnancies: 2 Full term: 2 Number of Living Children: 2 Date of Mammogram: 01/29/24 Review of Systems Const All systems reviewed & are unremarkable except as noted in HPI and below Physical Exam Vital Signs: Last Vital Signs BP 130/74 02/24/25 08:26 BMI result Body Mass Index 34.8 General: Yes no CVA tenderness External Female Exam: normal external appearance and normal appearance of the urethra Speculum Exam - Vagina: normal appearance of the vagina, normal palpation, no lesions and no masses Speculum Exam - Cervix: normal appearance of the cervix, normal palpation, no lesions, no masses and nontender Bimanual exam- vagina & uterus: normal bimanual exam, normal palpation, uterine size normal, normal palpation, uterine shape normal, No Cervical tenderness present and non-tender Bimanual Exam- Adnexa, other: normal adnexae Back/Spine/Pelvis Back: no CVA tenderness Assessment & Plan Assessment & Plan (1) History of abnormal cervical Pap smear: Comment: ASCUS, HPV + COLPO NEGATIVE 2021 Code(s): Z87.42 - Personal history of other diseases of the female genital tract Category: Medical Plan: Instructions given the patient to schedule an appointment for repeat Co testing in 06/05 (2) Vaginal discharge: Code(s): N89.8 - Other specified noninflammatory disorders of vagina Category: Medical Plan: GC/CT collected will treat with Terazol 0.8% q.h.s. for 3 days and metronidazole 500 mg p.o. b.i.d. for 7 day for mixed infection. Instructions given to the patient to call if symptoms not improve and to avoid unprotected intercourse for a week. (3) Postmenopausal bleeding: Code(s): N95.0 - Postmenopausal bleeding Category: Medical Plan: Discussed with the patient the differential diagnosis of post menopausal bleeding with normal pelvic exam including but not limited to, endometrial hyperplasia, cancer, polyps and other causes; co testing done, recommended ultrasound to measure the endometrial stripe; discussed with the patient that if the endometrial thickness is 4 mm or less the negative predictive value of endometrial pathology is 99%, otherwise If endometrial thickness is more than 4 mm will proceed with endometrial sampling versus hysteroscopy D&C polypectomy d epending on the ultrasound findings. Instructed the patient to schedule an ultrasound with a follow-up appointment in 2 weeks. All questions answered, the patient verbalized understanding and agreed with the plan. This note was generated with a voice recognition program. Some errors may have been overlooked during the review of this note. Sometimes these errors may affect the content or meaning of a given sentence. Orders: Orders CT NG by PCR Vag/Cerv Today N89.8 - Other specified noninflammatory disorders of vagina Bacterial Vaginosis Panel Today N89.8 - Other specified noninflammatory disorders of vagina US pelvic and transvaginal Today N95.0 - Postmenopausal bleeding Medications: New metronidazole 500 mg PO BID 14 tabs 0RF 7 days terconazole 0.8% 1 appful vaginal BEDTIME 20 grams 0RF 3 days Coding Level of Care Code New Pt Level 3 (73282) Diagnoses History of abnormal cervical Pap smear Z87.42 Vaginal discharge N89.8 Postmenopausal bleeding N95.0
[2025-02-24 08:26] VITALS: BP 130/74; BMI 34.8
== END 2025-02-24 09:09 | disposition home or self-care (01) ==
LOC: HO.HWS 08:15
PROVIDERS: PCP Nurse Practitioner Family; Visit Provider Obstetrics & Gynecology
DX: Z87.42 Personal history of other diseases of the female genital tract (principal); N89.8 Other specified noninflammatory disorders of vagina; N95.0 Postmenopausal bleeding
CPT/HCPCS: 99203

== ENCOUNTER 2025-02-26 15:54 | Outpatient (REF) | payer OTHER, SELFPAY ==
--- NOTE | ~2025-02-26 | US_ITS ---
EXAMINATION: US PELVIS TRANSABDOMINAL AND TRANSVAGINAL CLINICAL INFORMATION: Postmenopausal bleeding COMPARISON: None available. TECHNIQUE: Ultrasound of the pelvis is performed using both transabdominal and transvaginal transducers along with Doppler. Transvaginal imaging is performed due to inadequate visualization transabdominally. FINDINGS: Uterus: The uterus is anteverted and anteflexed and measures 7.9 x 2.5 x 3.1 cm. Intrauterine device appears properly positioned within the endometrial cavity. Multiple nabothian cysts in the uterine cervix. Trace fluid within the endocervical canal. Adnexa Right ovary measures 2.0 x 1.1 x 1.1 cm. Unremarkable appearance. No abnormal vascularity on color Doppler evaluation. Left ovary measures 2.7 x 2.2 x 2.4 cm. Contains a cyst that measures 1.9 x 1.6 x 1.6 cm associated with focal peripheral calcification. No abnormal vascularity on color Doppler evaluation. US/US pelvic and transvaginal IMPRESSION: Endometrial echo complex could not be well evaluated by presence of intrauterine device that appears properly positioned within the endometrial cavity. Electronically signed by: Foreign Hannah MD 02/26/2025 04:28 PM PEDRO
--- OUTSIDE RECORDS SUMMARY | 2025-02-27 04:31 | XMS_ITS | Encounter Summary ---
Author Organization [facility] Address [address] [place] [address] Phone Care Team Providers Care Business Analysis Professional Name Role Phone Major Rosario MD Primary Care Provider Unavailable Encounter Details Date Type Department Care Team (Latest Contact Info) Description 07/30/2019 Ancillary Orders [facility] [address] [place] [address] Deng Ball MD [address] [place] [address] Excessive bleeding in premenopausal period Social History Tobacco Use Types Packs/Day Years Used Date Smoking Tobacco: Never Assessed Comments No Sex and Gender Information Value Date Recorded Sex Assigned at Female 07/26/2019 9:38 AM EDT Legal Sex Female 9:29 AM EDT Gender Identity Female 07/26/2019 9:38 AM EDT Sexual Orientation Straight 07/26/2019 9: 38 AM EDT documented as of this encounter Plan of Treatment Not on file documented as of this encounter Results * US SONOHYSTEROGRAM WITH TRANSVAGINAL (07/30/2019 9:45 AM EDT) Anatomical Region Laterality Modality Pelvis, Uterus/Adnexa OB Ultraso und 07/30/2019 12:1 6 PM EDT Impressions 07/30/2019 1:10 PM EDT Fundal endometrial polyp, otherwise normal pelvis . Narrative 07/30/2019 1:10 PM EDT INDICATION: Abnormal bleeding with Mirena IUD present Mirena IUD removed immediately before starting the exam EXAM DATE: 07/30/2019 12:16 PM GYNECOLOGICAL ULTRASONOGRAPHY: Uterus Volume: 104.24 ml Anteverted Heterogeneous with no discrete masses. Length: 9.31 cm Height: 4.05 cm Width: 5.28 cm Endometrial Thickness: <2 mm Saline infusion reveals an echogenic mass at the fundus approximately 12 mm long, 9 m mthick. Right Ovary Volume: 7.35 ml Appears grossly normal. No adnexal masses seen. Length: 2.96 cm Height: 1.89 cm Width: 2.51 cm Left Ovary Volume: 9.68 ml Appears grossly normal. No adnexal masses seen. Length: 3.41 cm Height: 2.24 cm Width: 2.42 cm Cul de Sac Fluid: No free fluid. COMMENTS: 2 cm follicles noted on both ovaries Sonohysterography was performed. One endometrial mass was seen. The endometrium was otherwise thin Transvaginal scanning was performed. Procedure Note Deng Ball MD - 07/30/2019 INDICATION: Abnormal bleeding with Mirena IUD present Mirena IUD removed immediately before starting the exam EXAM DATE: 07/30/2019 12:16 PM GYNECOLOGICAL ULTRASONOGRAPHY: Uterus Volume: 104.24 ml Anteverted Heterogeneous with no discrete masses. Length: 9.31 cm Height: 4.05 cm Width: 5.28 cm Endometrial Thickness: <2 mm Saline infusion reveals an echogenic massat the fundus approximately 12 mm long, 9 m mthick. Right Ovary Volume: 7.35 ml Appears grossly normal. No adnexal masses seen. Length: 2.96 cm Height: 1.89 cm Width: 2.51 cm Left Ovary Volume: 9.68 ml Appears grossly normal. No adnexal masses seen. Length: 3.41 cm Height: 2.24 cm Width: 2.42 cm Cul de Sac Fluid: No free fluid. COMMENTS: 2 cm follicles noted on both ovaries Sonohysterography was performed. One endometrial mass was seen. Theendometrium was otherwise thin Transvaginal scanning was performed. IMPRESSION: Fundal endometrial polyp, otherwise normal pelvis . Deng Ball MD [facility] [place] PELVIS Final Result documented in this encounter Visit Diagnoses Diagnosis Excessive bleeding in premenopausal period Excessive bleeding in premenopausal period documented in this encounter Care Teams Business Analysis Professional Relationship Specialty Start Date End Date Major Rosario MD PCP - General Internal Medicine 07/26/19 documented as of this encounter Additional Source Comments The information contained in this document represents components of the legal health record. It is not the complete legal health record.[facility]
--- OUTSIDE RECORDS SUMMARY | 2025-02-27 04:31 | XMS_ITS | Encounter Summary ---
Author Organization [facility] Address [address] [place] [phone] Phone Care Team Providers Care Drafter Electrical Name Role Phone Major Rosario MD Primary Care Provider Unavailable Encounter Details Date Type Department Care Team (Late st Contact Info) Description 09/20/2019 Procedure Pass [place] Admitting Dept - Virtual Department [address] [place] [id number] Social History Tobacco Use Types Packs/Day Years Used Date Smoking Tobacco: Former Cigarettes 1 10 2002 Smokeless Tobacco: Never Alcohol Use Standard Drinks/Week Comments Not Currently 0 (1 standard drink = 0.6 oz pur e alcohol) 2 times a year Comments No Sex and Gender Information Value [...] on filedocumented in this encounter Care Teams Drafter Electrical Relationship Specialty Start Date End Date Major Rosario MD PCP - General Internal Medicine 07/26/19 documented as of this encounter Additional Source Comments The information contained in this document represents components of the legal health record. It is not the complete legal health record.[facility]
--- OUTSIDE RECORDS SUMMARY | 2025-02-27 04:31 | XMS_ITS | Encounter Summary ---
Author Organization [facility] Address [address] [place] [phone] Phone Care Team Providers Care Louver Door Assembler Name Role Phone Major Rosario MD Primary Care Provider Unavailable Encounter Details Date Type Department Care Team (Late st Contact Info) Description 09/23/2019 Procedure Pass [place] Admitting Dept - Virtual Department [address] [place] [phone] Social History Tobacco Use Types Packs/Day Years Used Date Smoking Tobacco: Former Cigarettes 1 10 - 2002 Smokeless Tobacco: Never Alcohol Use Standard [...] on filedocumented in this encounter Care Teams Louver Door Assembler Relationship Specialty Start Date End Date Major Rosario MD PCP - General Internal Medicine 07/26/19 documented as of this encounter Additional Source Comments The information contained in this document represents components of the legal health record. It is not the complete legal health record.[facility]
--- OUTSIDE RECORDS SUMMARY | 2025-02-27 04:31 | XMS_ITS | Clinical Summary ---
Author Organization [facility] Address [address] [place] [id number] Phone Care Team Providers Care Problem Manager Name Role Phone Major Rosario MD Primary Care Provider Unavailable Allergies No known active allergies Medications infusion set for insulin pump ISet by Does not apply route. As instructed Active albuterol 90 mcg/actuation inhaler INL 2 PFS PO Q 4 H PRF WHZ 9 Active atorvastatin (LIPITOR) 10 MG tablet Take 10 mg by mouth. Active cholecalciferol (VITAMIN D3) 2,000 unit tablet Take 2,000 Units by mouth. 9 Active diclofenac sodium (VOLTAREN) 50 MG EC tablet Take 50 mg by mouth. Active dicyclomine (BENTYL) 10 MG capsule Take 10 mg by mouth. Active insulin aspart U-100 (NOVOLOG U-100 INSULIN ASPART) 100 unit/mL injection vial ADMINISTER UP TO 90 UNITS DAILY VIA INSULIN PUMP DAILY 0 Active insulin glargine (LANTUS SOLOSTAR U-100 INSULIN) 100 unit/mL (3 mL) InPn injection pen as needed. 9 Active insulin lispro (ADMELOG, HUMALOG) 100 unit/mL injection vial Inject under the skin. Active pantoprazole (PROTONIX) 40 MG tablet Take 40 mg by mouth. 9 Active sertraline (ZOLOFT) 50 MG tablet Take 50 mg by mouth. 9 Active simethicone (IN-ACID GAS RELIEF,SIMETHIC ON,) 80 mg chewable tablet CHEW AND SWALLOW ONE TABLET EVERY 6 HOURS NEEDED FOR FLATULENCE 0 Active multivit,calc,m ins/iron/folic (ONE-A-DAY WOMENS FORMULA ORAL) Take by mouth. Activ e diclofenac sodium (SOLARAZE) 3 % Gel Apply topically 2 (two) times a day. To affected areas 100 g 6 0 Active Active Problems Problem Noted Date Diagnosed Date Vaginal discharge 10/15/2019 Asthma 09/20/2019 GERD (gastroesophageal reflux disease) 0 Hyperlipidemia 09/20/2019 IBS (irritable bowel syndrome) 09/20/2019 Obesity 09/20/2019 Endometrial polyp 07/30/2019 Controlled diabetes mellitus type 1 without comp lications 07/30/2019 Family History Medical History Relation Comments Diabetes Father Type II Cancer Mother Pt unaware of wh at type of cancer Diverticulitis Mother Relation Status Comments Father Alive Mother Alive Social History Tobacco Use Types Packs/Day Years Used Date Smoking Tobacco: Former Cigarettes 1 10 1 993 - 2002 Smokeless Tobacco: Never Alcohol Use Standard Drinks/Week Comments Not Currently 0 (1 standard drink = 0.6 oz pur e alcohol) 2 times a year Education Answer Date Recorded Are you interested in more education? Not on eloina e 08/05/2022 Are you concerned about learning? Not on file 08/05/2022 No 08/05/2022 No 08/05/2022 Digital Access Answer Date Recorded No 09/03/2022 No 09/03/2022 Reliable internet access at home? Not on file 09/03/2022 Device with a working camera? Not on file Comments No Sex and Gender Information Value Date Recorded Sex Assigned at Female 07/26/2019 9:38 AM EDT Legal Sex Female 9:29 AM EDT Gender Identity Female 07/26/2019 9:38 AM EDT Sexual Orientation Straight 07/26/2019 9: 38 AM EDT Last Filed Vital Signs Vital Sign Reading Time Taken Comments Blood Pressure 118/76 10/15/2019 3:43 PM EDT Pulse 77 09/20/2019 5:00 AM EDT Temperature 36.6 C (97.9 F) 09/20/2019 8:30 AM EDT Respiratory Rate 16 09/20/2019 8:30 AM EDT Oxygen Saturation 96% 09/20/2019 9:45 AM EDT Inhaled Oxygen Concentration - - Weight 84.1 kg (185 lb 6.4 oz) 10/15/2019 3:43 P M EDT Height 165.1 cm (5' 5 ) 10/15/2019 3:43 PM EDT Body Mass Index 30.85 10/15/2019 3:43 PM EDT Plan of Treatment Health Maintenance Due Date Last Done Comments Adult Td,Tdap Booster 1971 BLOOD PRESSURE 1971 HEMOGLOBIN A1C 1971 DEPRESSION SCREENING 1983 SMOKING Hx and SMOKELESS TOB ACCO SCREENING 09/13/1984 HEPATITIS C SCREENING 09/13/1989 HIV ONE-TIME SCREENING (18-6 5 YEARS) 09/13/1989 PNEUMOCOCCAL VACCINES (50+ y ears) (1 of 2 - PCV) 09/13/1990 PAP SMEAR 09/13/1992 MAMMOGRAM 2011 COLOGUARD 09/13/2016 COLONOSCOPY 09/13/2016 COLORECTAL CANCER SCREENING 09/13/2016 FIT TEST 09/13/2016 FOBT 09/13/2016 SIGMOIDOSCOPY 09/13/2016 VIRTUAL COLONOSCOPY 09/13/2016 DIABETIC EYE EXAM 07/30/2019 URINE MICROALBUMIN/CREATININ E RATIO 07/30/2019 RSV VACCINE (1 - Risk 50-74 years 1-dose series) 09/13/2021 ZOSTER VACCINES (1 of 2) 09/13/2021 INFLUENZA VACCINE (#1) 2024 12/25/2014 COVID-19 VACCINE (2 - 2024-2 6 season) 2024 08/05/2020 HEPATITIS A VACCINES Aged Out No long er eligible based on patient's age to complete this topic HIB VACCINES Aged Out No longer eligi ble based on patient's age to complete this topic MENINGOCOCCAL VACCINES (ACWY) Aged Out No longer eligible based on patient's age to complete this topic MENINGOCOCCAL VACCINES (B) Aged Out N o longer eligible based on patient's age to complete this topic Medical Devices Not on file Insurance [facility] [employer] [address] [place], [place] [address] EVAN[address] [place] [address] [address] [place] [address] [employer] [facility] [employer] [facility] Care Teams Problem Manager Relationship Specialty Start Date End Date Major Rosario MD PCP - General Internal Medicine 07/26/19 Additional Source Comments The information contained in this document represents components of the legal health record. It is not the complete legal health record.[facility]
== END 2025-02-26 15:55 | disposition home or self-care (01) ==
LOC: HO.US 15:54
PROVIDERS: PCP Nurse Practitioner Family; Visit Provider Obstetrics & Gynecology
DX: N95.0 Postmenopausal bleeding (principal)
CPT/HCPCS: 76830; 76856

== ENCOUNTER → 2025-02-26 15:55 | Outpatient (BNV) | payer OTHER, SELFPAY | PROVIDERS: PCP Nurse Practitioner Family; Visit Provider Radiology Body Imaging | DX: N95.0 Postmenopausal bleeding (principal) | CPT/HCPCS: 76830; 76856 ==

== ENCOUNTER 2025-03-05 10:39 | Outpatient (AMB) | payer OTHER, SELFPAY ==
--- NOTE | 2025-03-05 10:45 | A.OFFVIS_ITS ---
Vital Signs 3 03/05/25 10:46 Height 5 ft 5 in Weight 211 lb 10.3 oz BMI 35.2 BP 108/68 Blood Pressure Location Rt brachial Position Sitting Pulse 86 Pulse Source Pulse Oximeter Pulse Oximetry (%) 96 Oxygen Delivery Method Room Air Intake Visit Reasons: T1DM, nodules Intake Note: Patient presents today for a follow-up on Type 1 Diabetes Mellitus iLet Insulin Pump Multinodular thyroid: Patient last seen by Asya Bhat NP. Last Diabetic eye exam was on: DUE?? Last Podiatry exam was on: Does not see a Real Estate Intern Most recent HbA1c: 7.2%, 03/05/2025 Random Glucose- 144 mg/dL, Today Production Boring Machine Operator Required: No Accompanied by: Self / Same As Patient Allergies No Known Allergies Allergy (Verified 03/05/25 10:45) HPI Comments Details: 53 YO F with PMHx T1DM, multinodular thyroid and HLD who is seen in F/U for T1DM. She was previously followed by [facility]. She was last seen 06/07/2024. She was switched over to an islet insulin pump early . She previously had been on a tandem T slim. She was last seen by Asya Bhat NP on 08/29/2024. This is my 1st time seeing this patient 1. T1DM: Initially diagnosed with T1DM at the age of 13 when she was diagnosed at her elementary school. CGM/Chief Port Director data Interpretation: Overall reasonable controlled, with mild hyperglycemia overnight 170s-190s, which is a patient preference. She does not have hypoglycemia awareness and does correct according to the rule of 15's. Family history of autoimmunity in her son with albinism. Has eyes checked yearly, last eye exam january 2024 , no history of Retinopathy. Denies neuropathy, does see podiatry. Denies any ulcerations. She will schedule with new podiatriist Denies nephropathy. On lisinopril 2.5 mg PO daily. 06/26/2024 eGFR>60 microalbumin less than 5.0 No known CAD. ldl 92 06/2024 on statin Has had Diabetes Education. No prior episodes of DKA. Denies episodes of severe hypoglycemia. Last eye visit: will see in Mar 13, 2025 Podiatry: August-Sep 2024, no neuropathy, no wounds. 2. Multinodular Thyroid: Has a multinodular thyroid.. Denies any history of head or neck irradiation. Denies family history of thyroid cancer. Interval history 03/05/2025 She reports feeling overall well Usually change her pump 2 days She report having lots of lows in the begining but not getting lows at night anymore Usually announce only when her BG is above 150 She eats small meals She was started on Rosuvastatin 10 mg 2 months ago Most recent LDL 72 She reports taking vitamin d 1000IU daily She does not always retest with fingerstick for her BG when CGM shows low Laboratory Tests 06/26/24 03/05/25 09:15 10:53 Sodium 140 Creatinine 0.75 Estimated GFR > 60 Glucose (Clinic) 144 H Calcium 8.9 Triglycerides 74 Cholesterol 134 LDL Cholesterol, Calc 72 HDL Cholesterol 48 Vitamin B12 235 TSH 0.71 Laboratory Tests 06/26/24 09:22 Urine Creatinine 95.33 Urine Microalbumin < 5.0 Microalb/Creat Ratio TNP Laboratory Tests 03/05/25 10:59 Hgb A1c (Clinic) 7.2 H US Thyroid 12/08/22 Ultrasound soft tissue head/neck thyroid dated 12/01/2021 and 06/11/2020. TECHNIQUE: Linear transducer grayscale and color Doppler examination with attention to the region of the thyroid. FINDINGS: SIZE: Measurements of the thyroid lobes and nodules are given in sagittal, anteroposterior and transverse dimensions respectively. Right Thyroid Lobe: 4.6 x 1.3 x 1.4 cm, volume 4.2 mL. Previously 4.7 x 1.3 x 1.5 cm, volume 4.8 mL. Parenchyma: The gland echotexture is homogeneous. Thyroid vascularity is normal. Left Thyroid Lobe: 4.2 x 1.2 x 1.5 cm, volume 4.0 mL. Previously 5.0 x 1.5 x 1.7 cm, volume 6.7 mL. Parenchyma: The gland echotexture is homogeneous. Thyroid vascularity is normal. Isthmus: 0.2 cm in maximum AP dimension. Previously 0.2 cm. Estimated total number of nodules greater than or equal to 1 cm: 0. Export Sales Assistant nodules are described as follows: 1. Location: Right mid. Size: 0.5 x 0.4 x 0.5 cm, volume 0.05 mL. Previously: 0.5 x 0.3 x 0.4 cm, volume 0.03 mL. Nodule characteristics: Composition: Solid (2). Echogenicity: Hypoechoic (2). Shape: Not taller than wide (0). Margins: Smooth (0). Echogenic Foci: None (0). ACR TI-RADS total points: 4 Previous: 3 ACR TI-RADS category: 4 Previous: 3 Significant change in size (>/= 20% in 2 dimensions and minimal increase of 2 mm or 50% or greater increase in volume): Yes Change in features: No Change in ACR TI-RADS risk category: No NODES: No lymphadenopathy is seen in the tissue surrounding the thyroid gland. IMPRESSION: A small right thyroid lobe nodule is seen, as detailed. No specific follow-up is recommended. 12/01/2021 Right Thyroid Lobe: 4.7 x 1.3 x 1.5 cm, volume 4.8 mL. Previously 4.9 x 1.1 x 1.5 cm, volume 4.2 mL. Parenchyma: The gland echotexture is homogeneous. Thyroid vascularity is normal. Left Thyroid Lobe: 5.0 x 1.5 x 1.7 cm, volume 6.7 mL. Previously 4.8 x 1.0 x 1.6 cm, volume 4.0 mL. Parenchyma: The gland echotexture is homogeneous. Thyroid vascularity is normal. Isthmus: 0.2 cm in maximum AP dimension. Previously 0.3 cm. Estimated total number of nodules greater than or equal to 1 cm: 0. Export Sales Assistant nodules are described as follows: 1.? Location: Right mid medial. ?? ? Size: 0.5 x 0.3 x 0.4 cm, volume 0.03 mL. ?? ? Previously: 0.4 x 0.3 x 0.4 cm, volume 0.03 mL. ?? ? Nodule characteristics: ?? ? Composition: Solid (2). ?? ? Echogenicity: Isoechoic (1). ?? ? Shape: Not taller than wide (0). ?? ? Margins: Smooth (0). ?? ? Echogenic Foci: None (0).? ACR TI-RADS total points: 3 Previous: 3 ?? ? ACR TI-RADS category: 3 Previous: 3 ? Significant change in size (>/= 20% in 2 dimensions and minimal increase of 2 mm or 50% or greater increase in volume): None ?? ? Change in features: None ?? ? Change in ACR TI-RADS risk category: None NODES: No lymphadenopathy is seen in the tissue surrounding the thyroid gland. [facility] Medical History Thyroid disorder Sleep disturbance Neuropathy RLS (restless legs syndrome) IBS (irritable bowel syndrome) Hypercholesterolemia GERD (gastroesophageal reflux disease) Esophageal stricture Dysmenorrhea Diabetic neuropathy Anxiety and depression Asthma ASCUS with positive high risk HPV cervical Hx of mammogram (~12/2023) Vitamin D deficiency Multinodular thyroid HLD (hyperlipidemia) HTN (hypertension) T1DM (type 1 diabetes mellitus) Surgical History Hx of prior ablation treatment Hx of colonoscopy (~09/2023) History of ear surgery Family History Father Diabetes Mother Colonic polyp Maternal Grandmother Breast cancer Cardiovascular disease Maternal Grandfather Cardiovascular disease Social History Household Members: None Both parents involved: No Caregiver staying overnight: No Housing: House Are you a primary healthcare facility administrator to a significant other at home: No Do you presently have visiting nurse or other home services: No 75 years or older and lives alone: No Alcohol intake: current Alcohol intake frequency: holidays/special occasions only Patient Tobacco Use Status: Former Tobacco user Cigarette Packs Per Day: 1 Years Smoked: 10 e-Cigarette/Vaping Use: Never Used Second Hand Smoke Exposure: No Current occupational status: employed 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 Absence of acromegalic features. Neck exam reveals nl size thyroid about 15 gms. No large nodules palpable. Heart S1 S2, Reg R/R. No M/R G. Skin exam reveals absence of vitiligo or acanthosis nigricans. No edema Visual exam of foot performed. No ulcerations or open lesions. No inter digit maceration or fissuring. + onychomycosis, nails well trimmed, no callouses. Sensation intact to monofilament exam. Vibratory sensation is normal with 128 Hz tuning fork. Pulses positive distally Office Procedures Glucose Monitoring Details Details: See [facility] [address] - Glucose Monitoring, continuous Procedure code (CPT) selection complete Results AMB Hemoglobin A1c 2 AMB Hemoglobin A1c 7.2 % Last Edit by LIBAN Estrada on 03/05/25 11:05 Assessment & Plan Assessment & Plan (1) T1DM (type 1 diabetes mellitus): Code(s): E10.9 - Type 1 diabetes mellitus without complications Category: Medical Qualifiers: Diabetes mellitus complication status: with hyperglycemia Qualified Code(s): E10.65 - Type 1 diabetes mellitus with hyperglycemia Plan: Type 1 diabetic switched over to an ILET pump in 2023. Current A1c 7.2% in office today, indicating a reasonable control. She seems to be doing well overall in the Ilet pump. She avoids announcing meals if BG< 120 to avoid hypoglycemia, specially before going to sleep is when she experiences the most episodes of hypoglycemia. She reports that she does not sleep on the side of the CGM, hence she does not think is a compression low. We discussed possible resetting of the pump, but she reported that by changing her weight by 5 lbs she has been able to reduce te episodes of hypoglycemia significantly, hence she will defer the pump resetting for now. She reports having enough supply for insulin. She also has baqsimi and ketone test strips. She does is aware of ketone testing protocol Hypoglycemia protocol discuss Follow up in 3 months She has back up plan In case of pump failure: Use Lantus 30 units and 7 units with meals (2) Multinodular thyroid: Code(s): E04.2 - Nontoxic multinodular goiter Category: Medical Plan: Patient with history of MNG, no previous history of thyroid disease. Last thyroid US 12/08/22 0.5 x 0.4 x 0.5 cm, Previously: 0.5 x 0.3 x 0.4 cm in 2021. Last TSH 0.71. We will order a new thyroid US, if no significant changes in size/volumen, we will likely recommend no further follow up as there is not specific guidelines about stable nodules for multiple years. Having another US in 3-5 years is also reasonable. Plan 30 minutes spent reviewing previous records, labs, imaging, education and documenting in the chart Orders: Orders 2 AMB Glucose Monitoring Today E04.2 - Nontoxic multinodular goiter, E10.65 - Type 1 diabetes mellitus with hyperglycemia AMB Hemoglobin A1c Today E10.65 - Type 1 diabetes mellitus with hyperglycemia Coding Level of Care Code Est Pt Level 4 (32378) Complex visit Add On G2211 Diagnoses Type 1 diabetes mellitus with hyperglycemia E10.65 Diabetes mellitus complication status: with hyperglycemia Multinodular thyroid E04.2 CPT Codes Details - CPT: 05418 - Glucose Monitoring, continuous ([id number])
[2025-03-05 10:46] VITALS: BP 108/68; PULSE 86; O2SAT 96; BMI 35.2
[2025-03-05 10:59] LABS: Glucose, Whole Blood 144 mg/dL (60-115)
--- OUTSIDE RECORDS SUMMARY | 2025-03-05 12:49 | XMS_ITS | Clinical Summary ---
Author Organization [facility] Address [address] [place] [address] Phone Care Team Providers Care Rake Operator Name Role Phone Siri Diez Primary Care Provider [phone] Allergies No known active allergies Medications dicyclomine (BENTYL) 10 mg capsule Take 1 capsule by mouth twice daily 120 capsule 09/06/19 25 Active albuterol HFA (PROAIR HFA ; PROVENTIL HFA ; VENTOLIN HFA) 90 mcg/actuation inhaler Inhale 2 puffs by mouth every 4 (four) hours if needed for wheezing or shortness of breath. 11/22/19 19 Active rosuvastatin (CRESTOR) 10 mg tablet Take 1 tablet (10 mg total) by mouth 1 (one) time each day. 11/04/19 25 Active sertraline (ZOLOFT) 50 mg tablet Take 1 tablet (50 mg total) by mouth 1 (one) time each day. Active lisinopriL (PRINIVIL,ZESTRI L) 2.5 mg tablet Take 1 tablet (2.5 mg total) by mouth 1 (one) time each day. Active levonorgestreL (Liletta) 20.4 mcg/24 hr (8 yrs) 52 mg intrauterine device IUD 1 each (52 mg total) by intrauterine route. 07/30/19 22 Active HumaLOG U-100 Insulin 100 unit/mL injection Inject 100 Units under the skin 3 (three) times a day before meals. Active Lantus Solostar U-100 Insulin 100 unit/mL (3 mL) injection pen Inject 32 Units under the skin at bedtime. Active gabapentin (NEURONTIN) 300 mg capsule Take 1 capsule (300 mg total) by mouth at bedtime. 05/27/19 24 Active cholecalciferol (VITAMIN D-3) 25 mcg (1,000 unit) tablet Take 1 tablet (1,000 Units total) by mouth 1 (one) time each day. for 30 days 10/20/19 25 Active omeprazole (PriLOSEC) [address] capsule Take 1 capsule (40 mg total) by mouth 1 (one) time each day. Do not crush or chew. 30 each 3 11/08/19 25 026 Active zinc gluconate 50 mg tablet Take 1 tablet (50 mg total) by mouth 1 (one) time each day. Active simethicone (MYLICON) 80 mg chewable tabletIndication s:Esophageal stenosis,Hiatal hernia with GERD and esophagitis,Nons pecific colitis Chew 1 tablet (80 mg total) every 6 (six) hours if needed for flatulence. 120 tablet 03/04/20 25 025 Active simethicone (MYLICON) 80 mg chewable tablet Chew 1 tablet (80 mg total) every 6 (six) hours if needed for flatulence. 025 Discontin ued(Reord er) atorvastatin (LIPITOR) 10 mg tablet Take 1 tablet (10 mg total) by mouth 1 (one) time each day. 05/04/19 25 025 Discontin ued(Formu karyn change) Encounters Date Type Department Care Team Description 02/25/2025 Telephone Gastroenterology [facility] 175 [facility] [address] [place] [address] Fredrick Rodriguez DO 02/17/2025 8:50 AM EST Office Visit Gastroenterology - 299 [facility] 299 [facility] [address] [place] [phone] Virginia Evans PA Nonspecific colitis (Primary Dx); Hiatal hernia with GERD and esophagitis; Esophageal stenosis 12/04/2024 10:10 AM EDT Office Visit Gastroenterology [facility] [address] [facility] [address] [place] [phone] Virginia Evans PA Nonspecific colitis (Primary Dx); Hiatal hernia with GERD and esophagitis; Esophageal stenosis from Last 3 Months Surgical History Surgery Date Site/Laterality Comments COLONOSCOPY PROCEDURE: HISTORICAL COLONOSCOPY; COMMENT: x2 with Dr Bridges for IBS sxs last performed by Dr. Bowers in 2017 with a suggested 5-year follow-up ESOPHAGOGASTRODUODENOSCOPY PROCEDURE: VT EGD TRANSORAL BIOPSY SINGLE/MULTIPLE; COMMENT: Performed in [...] s; COMMENT: Recently diagnosed on CT from [facility]-June 2019 Dysphagia DX:Dysphagia Globus sensation DX:Globus [...] Years Used Date Smoking Tobacco: Former Cigarettes 0 Q uit: 09/10/2007 Smokeless Tobacco: Never Alcohol [...] Sign Reading Time Taken Comments Blood Pressure 116/72 02/17/2025 8:57 AM EST Pulse 71 02/17/2025 8:57 AM EST Temperature - - Respiratory Rate - - Oxygen Saturation 95% 02/17/2025 8:57 AM EST Inhaled Oxygen Concentration - - Weight 94.8 kg (209 lb) 02/17/2025 8:57 AM EST Height 165.1 cm (5' 5 ) 02/17/2025 8:57 AM EST Body Mass Index 34.78 02/17/2025 8:57 AM EST Plan of Treatment Upcoming Encounters Date Type Department Care Team (Late st Contact Info) Description 03/25/2025 9:45 AM EST Appointment [facility] CT Scan [address] [place] [id number] 04/08/2025 10:00 AM EST Appointment [facility] Endoscopy [address] [place] [address] Fredrick Rodriguez DO [address] [address] 09/30/2025 10:50 AM EDT Office Visit Gastroenterology - 299 [facility] [address] [phone] Virginia Evans PA [address] [address] Health Maintenance Due Date Last Done Comments Breast Cancer Screening 1971 Colorectal Cancer Screening: Colonoscopy 1971 Diabetes: Annual GFR (Glomerular Filtration Rate) 1971 Diabetes: Annual Foot Exam 09/13/1981 Diabetes: Annual Retina Eye Exam 09/13/1981 Hepatitis B Vaccines (1 of 3 - 19+ 3-dose series) 09/13/1990 Cervical Cancer Screening: Pap Smear 09/13/1992 RSV Immunization Adult Patients (1 - Risk 50-74 years 1-dose series) 09/13/2021 Zoster Vaccines (1 of 2) 09/13/2021 Cholesterol Screening (Lipid Panel) 03/12/2022 HIV Screening 03/12/2022 Hepatitis C Screening 03/12/2022 Social Influencers of Health Screening 03/12/2022 Diabetes: Annual Urine Albumin-Creatinine Ratio (uACR) 03/24/2022 Diabetes: Blood Sugar Control Test (HGBA1C) 03/24/2022 Depression Screening 04/10/2024 COVID-19 Vaccine ( season) 2024 03/30/2021, 09/04/2020, 08/05/2020 Influenza Vaccine (#1) 2024 , 03/28/2022, 03/30/2021, Additional history exists Pneumococcal Vaccine: 50+ Years (3 of 3 - PCV20 or PCV21) 12/28/2028 12/29/2023, 11/25/2018, 03/24/2011 DTaP,Tdap,and Td Vaccines (3 - Td or Tdap) 12/28/2033 12/29/2023, 03/24/2011 HIB Vaccines Aged Out No longer eligi [...] to complete this topic RSV Immunization Patients Under 20 months Aged Out No longer eligible based on patient's age to complete this topic Varicella Vaccines Aged Out No longer eligible based on patient's age to complete this topic Goals Goal Patient Goal Type Associated Problems Recent Progress Patient-Stated? Author Autogenera lan Goal Care Plan Autogenerated Problem No Britt Manuel Additional Health Concerns Active Problems Noted Date Diagnosed Date Autogenerated Problem 02/17/2025 Insurance [facility] Care Teams Rake Operator Relationship Specialty Start Date End Date Siri Diez FNP [address] [place] [address] [place] [phone] PCP - General Nurse Practitioner 11/07/24
--- OUTSIDE RECORDS SUMMARY | 2025-03-05 12:49 | XMS_ITS | Encounter Summary ---
Author Organization [facility] Address [address] [place] [phone] Phone Care Team Providers Care Beam Dyer Name Role Phone Major Rosario MD Primary Care Provider Unavailable Encounter Details Date Type Department Care Team (Latest Contact Info) Description 07/30/2019 Ancillary Orders [facility] [address] [place] [address] Deng Ball MD [address] [place] [address] Excessive bleeding in premenopausal period Social History [...] otherwise normal pelvis . Deng Ball MD [facility] [place] [place] US PELVIS Final Result documented in this encounter Visit Diagnoses Diagnosis Excessive bleeding in premenopausal period Excessive bleeding in premenopausal period documented in this encounter Care Teams Beam Dyer Relationship Specialty Start Date End Date Major Rosario MD PCP - General Internal Medicine 07/26/19 documented as of this encounter Additional Source Comments The information contained in this document represents components of the legal health record. It is not the complete legal health record.[facility]
--- OUTSIDE RECORDS SUMMARY | 2025-03-05 12:49 | XMS_ITS | Clinical Summary ---
Author Organization [facility] Address [address] [place] [address] Phone Care Team Providers Care Closing Agent Name Role Phone Major Rosario MD Primary [...] 50 mg by mouth. 9 Active simethicone ([place]-ACID GAS RELIEF,SIMETHIC ON,) 80 mg chewable tablet [...] topic Medical Devices Not on file Insurance [facility] [email or web address] [address] [place] [address]Card[facility] BitRockNICHOLAS H [facility]YES [facility]ITALO [place]HESTERCardocNICH[facility] [place] [address] BitRockADENA [facility] [address] [place] [address]Card[facility] [place]Connectbright [facility] [employer] [place] [facility] M[employer] Care Teams Closing Agent Relationship Specialty Start Date End Date Major Rosario MD PCP - General Internal Medicine 07/26/19 Additional Source Comments The information contained in this document represents components of the legal health record. It is not the complete legal health record.[facility]
--- OUTSIDE RECORDS SUMMARY | 2025-03-05 12:49 | XMS_ITS | Encounter Summary ---
Author Organization [facility] Address [address] [place] [address] Phone Care Team Providers Care Health Practice Manager Name Role Phone Major Rosario MD Primary Care Provider Unavailable Encounter Details Date Type Department Care Team (Late st Contact Info) Description 09/23/2019 Procedure Pass OR Admitting Dept - Virtual Department [address] [place] [phone] Social History Tobacco Use Types Packs/Day Years [...] on filedocumented in this encounter Care Teams Health Practice Manager Relationship Specialty Start Date End Date Major Rosario MD PCP - General Internal Medicine 07/26/19 documented as of this encounter Additional Source Comments The information contained in this document represents components of the legal health record. It is not the complete legal health record.[facility]
--- OUTSIDE RECORDS SUMMARY | 2025-03-05 12:49 | XMS_ITS | Encounter Summary ---
Author Organization [facility] Address [address] [place] [address] Phone Care Team Providers Care Machine Builder Name Role Phone Major Rosario MD Primary Care Provider Unavailable Encounter Details Date Type Department Care Team (Late st Contact Info) Description 09/20/2019 Procedure Pass OR Admitting Dept - Virtual Department [address] [place] [address] Social History Tobacco Use Types Packs/Day Years [...] on filedocumented in this encounter Care Teams Machine Builder Relationship Specialty Start Date End Date Major Rosario MD PCP - General Internal Medicine 07/26/19 documented as of this encounter Additional Source Comments The information contained in this document represents components of the legal health record. It is not the complete legal health record.[facility]
== END 2025-03-05 11:42 | disposition home or self-care (01) ==
LOC: HO.ENCR 10:39
PROVIDERS: PCP Nurse Practitioner Family; Visit Provider Student in an Organized Health Care Education/Training Program
DX: E10.65 Type 1 diabetes mellitus with hyperglycemia (principal); E04.2 Nontoxic multinodular goiter
CPT/HCPCS: 99214

== ENCOUNTER → 2025-03-05 10:39 | Outpatient (BNVA) | payer OTHER, SELFPAY | PROVIDERS: PCP Nurse Practitioner Family; Visit Provider Student in an Organized Health Care Education/Training Program | DX: E10.65 Type 1 diabetes mellitus with hyperglycemia (principal); E04.2 Nontoxic multinodular goiter | CPT/HCPCS: 82947; 83036; 95250; 99212 ==

== ENCOUNTER 2025-03-26 09:04 | Outpatient (AMB) | payer OTHER, SELFPAY ==
--- NOTE | 2025-03-26 09:11 | A.OFFVIS_ITS ---
Vital Signs 03/26/25 09:46 Height 5 ft 5 in Weight 211 lb BMI 35.1 BP 110/62 Intake Visit Reasons: US Follow Up/EMB Retail Greeting Card Merchandiser Required: No Information Interpreted: non-clinical & clinical Power Distribution Engineer: Power Distribution Engineer Present (Cassandra LOUIE) Accompanied by: Self / Same As Patient Allergies No Known Allergies Allergy (Verified 03/26/25 09:14) HPI Comments Details: Presenting for ultrasound follow-up regarding postmenopausal bleeding which showed the following: Uterus: The uterus is anteverted and anteflexed and measures 7.9 x 2.5 x 3.1 cm. Intrauterine device appears properly positioned within the endometrial cavity. Multiple nabothian cysts in the uterine cervix. Trace fluid within the endocervical canal. Adnexa Right ovary measures 2.0 x 1.1 x 1.1 cm. Unremarkable appearance. No abnormal vascularity on color Doppler evaluation. Left ovary measures 2.7 x 2.2 x 2.4 cm. Contains a cyst that measures 1.9 x 1.6 x 1.6 cm associated with focal peripheral calcification. No abnormal vascularity on color Doppler evaluation. US/US pelvic and transvaginal IMPRESSION: Endometrial echo complex could not be well evaluated by presence of intrauterine device that appears properly positioned within the endometrial cavity. PFSH Medical History Thyroid disorder Sleep disturbance Neuropathy RLS (restless legs syndrome) IBS (irritable bowel syndrome) Hypercholesterolemia GERD (gastroesophageal reflux disease) Esophageal stricture Dysmenorrhea Diabetic neuropathy Anxiety and depression Asthma ASCUS with positive high risk HPV cervical Hx of mammogram (~12/2023) Vitamin D deficiency Multinodular thyroid HLD (hyperlipidemia) HTN (hypertension) T1DM (type 1 diabetes mellitus) Surgical History Hx of prior ablation treatment Hx of colonoscopy (~09/2023) History of ear surgery Family History Father Diabetes Mother Colonic polyp Maternal Grandmother Breast cancer Cardiovascular disease Maternal Grandfather Cardiovascular disease Social History Household Members: None Both parents involved: No Caregiver staying overnight: No Housing: House Are you a primary care administrative tech to a significant other at home: No Do you presently have visiting nurse or other home services: No 75 years or older and lives alone: No Alcohol intake: current Alcohol intake frequency: holidays/special occasions only Patient Tobacco Use Status: Former Tobacco user Cigarette Packs Per Day: 1 Years Smoked: 10 e-Cigarette/Vaping Use: Never Used Second Hand Smoke Exposure: No Current occupational status: employed Current occupation: [employer] Sexual orientation: Straight/Heterosexual Gender identity: Female Cognitive needs: No Hearing needs: No Vision needs: Yes (wear glasses) Review of Systems Const All systems reviewed & are unremarkable except as noted in HPI and below Reports as per HPI and Reports no additional complaints GI Reports no additional complaints Reports no additional complaints Office Procedures Endometrial Biopsy Details: The patient was counseled regarding the indication and benefits of endometrial sampling to rule out endometrial pathology including not limited to endometrial hyperplasia or endometrial cancer and others; The alternatives (Either do nothing vs. hysteroscopy D&C) & the risks were discussed with the patient including but not limited: pain, uterine perforation, bleeding, infection, possible injury to bladder, bowel, ureter, possible need for blood transfusion with all its possible risks. The patient verbalized understanding all questions answered and signed consent. The patient was placed into the dorsal lithotomy position; a speculum was inserted in the vagina. Using aseptic technique for the procedure, the cervix was cleansed with Betadine. The anterior lip of the cervix was grasped with a single tooth tenaculum. The uterus was sounded to 7 cm with a 4 mm Pipelle was used. Tissues samples were obtained and placed in formalin, in a patient labeled container and sent to the pathology department. At the end of the procedure, there was minimal bleeding noted The patient tolerated the procedure well and was discharged in good condition with the following instructions: Nothing in the vagina until the bleeding stops. No sex until the bleeding stops, to call if any of the following occurs: fever (>100.4), flu-like symptoms, abdominal pain, heavy bleeding, four smelling vaginal discharge. The patient was instructed to schedule a Follow up appointment in 2 weeks to discuss pathology results of the biopsy and treatment options. This note was generated with a voice recognition program. Some errors may have been overlooked during the review of this note. Sometimes these errors may affect the content or meaning of a given sentence. 83308-Xagwmtbzzrq Biopsy IUD Insert/Removal Details Details: Counseling/Consent: After discussing with the patient the risks of the procedure including bleeding, infection, scar tissue formation, , possible injury to blood vessels or nerves, chronic arm pain, blood transfusion, and irregular unpredictable bleeding Alternative options were discussed with the patient including but not limited: Do nothing. The patient signed the consent and agreed with the plan; all questions answered. Urine test was done in the office and was negative Preop dx: Requesting IUD removal Op: IUD removal Post op dx: same EBL= 10 cc Procedure: The patient was put in the dorsal lithotomy position a speculum was inserted in the vagina the IUD thread identified. Using a Dory clamp the thread was grasped and the IUD pulled out with no complications. The patient tolerated the procedure well and was advised to use a different method for contraception. Discharge instructions: Instructions were given to the pt to call if temp>100.4, abdominal pain heavy vaginal bleeding, n/v occur. The patient verbalized understanding and all questions answered. This note was generated with a voice recognition program. Some errors may have been overlooked during the review of this note. Sometimes these errors may affect the content or meaning of a given sentence. 44404-YKV Removal Procedure code (CPT) selection complete Assessment & Plan Assessment & Plan (1) Postmenopausal bleeding: Code(s): N95.0 - Postmenopausal bleeding Category: Medical Plan: Discussed with the patient the pelvic ultrasound findings, the endometrial stripe was not able to be measured. Recommended to the patient that the next step is an endometrial sampling via hysteroscopy D&C possible polypectomy versus endometrial biopsy to r/o endometrial pathology including hyperplasia or cancer. All the pros and cons risks and benefits of each approach were discussed with the patient, endometrial biopsy being less invasive, office procedure with less sensitivity and inability diagnose a polyp and removal versus hysteroscopy done under anesthesia more invasive more sensitive to endometrial cancer and possibility of diagnosing and endometrial polyp with the possibility of polypectomy. All questions were answered pt verbalized understanding and decided to proceed with endometrial biopsy, EMB done, see procedure note (2) Encounter for IUD removal: Code(s): Z30.432 - Encounter for removal of intrauterine contraceptive device Category: Medical Plan: Discussed with the patient the finding of IUD in utero, the patient is requesting Mirena IUD removal The FSH/LH. Instructions given the patient is schedule a follow-up appointment within 2 weeks. Instructions given the patient to use a backup method for control. (3) Complex ovarian cyst: Code(s): N83.299 - Other ovarian cyst, unspecified side Category: Medical Plan: Discussed with the patient the finding on ultrasound left ovarian cyst with peripheral calcification, differential diagnosis discussed with the patient include benign, premalignant or malignant will order pelvic MRI. Instructions given the patient to schedule an MRI and a follow-up appointment within 2 weeks Orders: Orders Follicle Stimulating Hormone Today N91.2 - Amenorrhea, unspecified MR pelvis wo/w con Today N83.299 - Other ovarian cyst, unspecified side Lutenizing Hormone Today N91.2 - Amenorrhea, unspecified AMB Endometrial Biopsy Today N95.0 - Postmenopausal bleeding Coding Level of Care Code Est Pt Level 3 (74253) Procedure Only Diagnoses Postmenopausal bleeding N95.0 Encounter for IUD removal Z30.432 Complex ovarian cyst N83.299 CPT Codes Endometrial Biopsy - CPT: 88052-Bmbbllgigwb Biopsy ([id number]) Details - CPT: 82978-BHM Removal ([id number])
[2025-03-26 09:46] VITALS: BP 110/62; BMI 35.1
--- OUTSIDE RECORDS SUMMARY | 2025-03-26 09:56 | XMS_ITS | Encounter Summary ---
Author Organization [facility] Address [address] [place] [address] Phone Care Team Providers Care Drywall Finishing Foreman Name Role Phone Major Rosario MD Primary Care Provider Unavailable Encounter Details Date Type Department Care Team (Late st Contact Info) Description 09/20/2019 Procedure Pass OR Admitting Dept - Virtual Department [address] [place] [phone] Social History Tobacco Use Types Packs/Day Years [...] on filedocumented in this encounter Care Teams Drywall Finishing Foreman Relationship Specialty Start Date End Date Major Rosario MD PCP - General Internal Medicine 07/26/19 documented as of this encounter Additional Source Comments The information contained in this document represents components of the legal health record. It is not the complete legal health record.[facility]
--- OUTSIDE RECORDS SUMMARY | 2025-03-26 09:56 | XMS_ITS | Encounter Summary ---
Author Organization [facility] Address [address] [place] [address] [place] [address] Phone Care Team Providers Care Clinical Practitioner Name Role Phone Major Rosario MD Primary Care Provider Unavailable Encounter Details Date Type Department Care Team (Latest Contact Info) Description 07/30/2019 Ancillary Orders [facility] [address] [place] [address] Deng Ball MD [address] [place] [address] Excessive bleeding in premenopausal period Social History [...] otherwise normal pelvis . Deng Ball MD [facility] [place] [facility] [place] Final Result documented in this encounter Visit Diagnoses Diagnosis Excessive bleeding in premenopausal period Excessive bleeding in premenopausal period documented in this encounter Care Teams Clinical Practitioner Relationship Specialty Start Date End Date Major Rosario MD PCP - General Internal Medicine 07/26/19 documented as of this encounter Additional Source Comments The information contained in this document represents components of the legal health record. It is not the complete legal health record.[facility]
--- OUTSIDE RECORDS SUMMARY | 2025-03-26 09:56 | XMS_ITS | Encounter Summary ---
Author Organization [facility] Address [address] [place] [address] Phone Care Team Providers Care Multi Operation Machine Operator Name Role Phone Major Rosario MD Primary Care Provider Unavailable Encounter Details Date Type Department Care Team (Late st Contact Info) Description 09/23/2019 Procedure Pass OR Admitting Dept - Virtual Department [address] [place] [address] Social History Tobacco Use Types Packs/Day Years [...] on filedocumented in this encounter Care Teams Multi Operation Machine Operator Relationship Specialty Start Date End Date Major Rosario MD PCP - General Internal Medicine 07/26/19 documented as of this encounter Additional Source Comments The information contained in this document represents components of the legal health record. It is not the complete legal health record.[facility]
--- OUTSIDE RECORDS SUMMARY | 2025-03-26 09:56 | XMS_ITS | Clinical Summary ---
Author Organization [facility] Address [address] [place] [address] Phone Care Team Providers Care Magnetic Tape Composer Operator Name Role Phone Siri Diez Primary Care Provider [phone] Allergies No known active allergies Medications dicyclomine [...] needed for flatulence. 025 Discontin ued(Reord er) Encounters Date Type Department Care Team Description 02/25/2025 Telephone Gastroenterology - [place] [facility] 175 [facility] [address] [place] [address] Fredrick Rodriguez DO 02/17/2025 8:50 AM EST Office Visit Gastroenterology - [facility] 299 [facility] [address] [place] [address] Virginia Evans PA Nonspecific colitis (Primary Dx); Hiatal hernia with GERD and esophagitis; Esophageal stenosis from Last 3 Months Surgical History Surgery Date Site/Laterality Comments COLONOSCOPY PROCEDURE: HISTORICAL COLONOSCOPY; COMMENT: x2 with Dr Bridges for IBS sxs last performed by Dr. Bowers in 2018 with a suggested 5-year follow-up ESOPHAGOGASTRODUODENOSCOPY PROCEDURE: CO EGD TRANSORAL BIOPSY SINGLE/MULTIPLE; COMMENT: Performed in [...] s; COMMENT: Recently diagnosed on CT from [facility]-June 2019 Dysphagia DX:Dysphagia Globus sensation DX:Globus [...] on file Sexual Orientation Not on file Last Filed Vital Signs [...] Care Team (Late st Contact Info) Description 04/08/2025 10:00 AM EST Appointment [facility] [address] [place] [address] Fredrick Rodriguez DO [address] [address] 09/30/2025 10:50 AM EDT Office Visit Gastroenterology - [address] [phone] Virginia Evans PA [address] [address] Health Maintenance Due Date Last Done Comments [...] Date Diagnosed Date Autogenerated Problem 02/17/2025 Insurance [facility] [place] [address] Care Teams Magnetic Tape Composer Operator Relationship Specialty Start Date End Date Siri Diez FNP [address] [place] [address] [place] [address] PCP - General Nurse Practitioner 11/07/24
--- OUTSIDE RECORDS SUMMARY | 2025-03-26 09:56 | XMS_ITS | Clinical Summary ---
Author Organization [facility] Address [address] [place] [address] Phone Care Team Providers Care Cook Relief Name Role Phone Major Rosario MD Primary [...] 50 mg by mouth. 9 Active simethicone ([place]-ACID GAS RELIEF,SIMETHIC ON,) 80 mg chewable tablet [...] topic Medical Devices Not on file Insurance [facility] [employer] [address] [place] [address]Socru[facility]BL[facility] Montage TalentBLYTHEDALE CHILDREN'S HOSPITALO LINCOLNSocruiseBLYTHEDALE CHILDREN[address] [address] [place] [address]SocruiseWV[facility] MCO [facility] Montage TalentWVUMEDICINE [facility] [address] [place] [address]SocruiseWVUMEDICINE [facility] MCO LINCOLNAegis Identity Software [facility] MCO LINCOLNAegis Identity Software [facility] MCO Care Teams Cook Relief Relationship Specialty Start Date End Date Major Rosario MD PCP - General Internal Medicine 07/26/19 Additional Source Comments The information contained in this document represents components of the legal health record. It is not the complete legal health record.[facility]
== END 2025-03-26 10:05 | disposition home or self-care (01) ==
LOC: HO.HWS 09:05
PROVIDERS: PCP Nurse Practitioner Family; Visit Provider Obstetrics & Gynecology
DX: N95.0 Postmenopausal bleeding (principal); Z30.432 Encounter for removal of intrauterine contraceptive device; N83.299 Other ovarian cyst, unspecified side
CPT/HCPCS: 58100; 58301; 99213

== ENCOUNTER 2025-03-26 09:04 | Outpatient (REF) | payer OTHER, SELFPAY ==
[2025-03-27 04:48] LABS: Follicle Stimulating Hormone 15.6 mIU/mL
== END 2025-03-26 09:05 | disposition home or self-care (01) ==
LOC: HO.LAB 09:04
PROVIDERS: PCP Nurse Practitioner Family; Visit Provider Obstetrics & Gynecology
DX: Z30.432 Encounter for removal of intrauterine contraceptive device (principal); N95.0 Postmenopausal bleeding; N83.292 Other ovarian cyst, left side; N91.2 Amenorrhea, unspecified
CPT/HCPCS: 36415; 58100; 58301; 83001; 83002; 99212

== ENCOUNTER 2025-03-26 10:45 | Outpatient (REF) | payer OTHER, SELFPAY | END 2025-03-26 10:46 | disposition home or self-care (01) | LOC: HO.LNP 10:45 | PROVIDERS: Visit Provider Obstetrics & Gynecology | DX: N95.0 Postmenopausal bleeding (principal) | CPT/HCPCS: 88305 ==